=== PATIENT | female | born 1945 | race Caucasian/White ===

== ENCOUNTER → 2016-10-18 | Outpatient (CLI) | payer MEDICARE | END | disposition home or self-care (01) | LOC: WOUND 09:12 | PROVIDERS: ATTEND Podiatrist Foot & Ankle Surgery | DX: E11.621 Type 2 diabetes mellitus with foot ulcer (principal); L97.521 Non-pressure chronic ulcer of other part of left foot limited to breakdown of skin; I10 Essential (primary) hypertension; I48.91 Unspecified atrial fibrillation; I25.10 Atherosclerotic heart disease of native coronary artery without angina pectoris; I25.2 Old myocardial infarction; K21.9 Gastro-esophageal reflux disease without esophagitis; E78.00 Pure hypercholesterolemia, unspecified; E11.40 Type 2 diabetes mellitus with diabetic neuropathy, unspecified; Z89.412 Acquired absence of left great toe; Z90.710 Acquired absence of both cervix and uterus | CPT/HCPCS: 97597; G0463; WOU0463 ==

== ENCOUNTER → 2016-10-25 | Outpatient (CLI) | payer MEDICARE | END | disposition home or self-care (01) | LOC: WOUND 15:51 | PROVIDERS: ATTEND Podiatrist Foot & Ankle Surgery | DX: E11.621 Type 2 diabetes mellitus with foot ulcer (principal); L97.511 Non-pressure chronic ulcer of other part of right foot limited to breakdown of skin; L97.521 Non-pressure chronic ulcer of other part of left foot limited to breakdown of skin; I25.10 Atherosclerotic heart disease of native coronary artery without angina pectoris; K21.9 Gastro-esophageal reflux disease without esophagitis; I10 Essential (primary) hypertension; I25.2 Old myocardial infarction; E11.40 Type 2 diabetes mellitus with diabetic neuropathy, unspecified; I48.91 Unspecified atrial fibrillation; E78.00 Pure hypercholesterolemia, unspecified; Z90.710 Acquired absence of both cervix and uterus; Z89.412 Acquired absence of left great toe | CPT/HCPCS: 97597 ==

== ENCOUNTER → 2016-11-01 | Outpatient (CLI) | payer MEDICARE | END | disposition home or self-care (01) | LOC: WOUND 15:30 | PROVIDERS: ATTEND Podiatrist Foot & Ankle Surgery | DX: E11.621 Type 2 diabetes mellitus with foot ulcer (principal); L97.521 Non-pressure chronic ulcer of other part of left foot limited to breakdown of skin; L97.511 Non-pressure chronic ulcer of other part of right foot limited to breakdown of skin; I25.10 Atherosclerotic heart disease of native coronary artery without angina pectoris; I10 Essential (primary) hypertension; K21.9 Gastro-esophageal reflux disease without esophagitis; I25.2 Old myocardial infarction; E78.00 Pure hypercholesterolemia, unspecified; E11.40 Type 2 diabetes mellitus with diabetic neuropathy, unspecified; I48.91 Unspecified atrial fibrillation; Z90.710 Acquired absence of both cervix and uterus; Z89.412 Acquired absence of left great toe | CPT/HCPCS: 11042 ==

== ENCOUNTER → 2016-11-08 | Outpatient (CLI) | payer MEDICARE | END | disposition home or self-care (01) | LOC: CVU 07:51 | PROVIDERS: ATTEND Physician Assistant | DX: I70.203 Unspecified atherosclerosis of native arteries of extremities, bilateral legs (principal); I87.2 Venous insufficiency (chronic) (peripheral); E11.621 Type 2 diabetes mellitus with foot ulcer; I10 Essential (primary) hypertension; Z89.412 Acquired absence of left great toe; Z95.828 Presence of other vascular implants and grafts; Z85.9 Personal history of malignant neoplasm, unspecified | CPT/HCPCS: 93306; 93880; 93922; 93925; 93970 ==

== ENCOUNTER → 2016-11-08 | Outpatient (CLI) | payer MEDICARE | END | disposition home or self-care (01) | LOC: WOUND 13:30 | PROVIDERS: ATTEND Podiatrist Foot & Ankle Surgery | DX: E11.621 Type 2 diabetes mellitus with foot ulcer (principal); L97.511 Non-pressure chronic ulcer of other part of right foot limited to breakdown of skin; L97.521 Non-pressure chronic ulcer of other part of left foot limited to breakdown of skin; E11.51 Type 2 diabetes mellitus with diabetic peripheral angiopathy without gangrene; I25.10 Atherosclerotic heart disease of native coronary artery without angina pectoris; I10 Essential (primary) hypertension; K21.9 Gastro-esophageal reflux disease without esophagitis; I25.2 Old myocardial infarction; E11.40 Type 2 diabetes mellitus with diabetic neuropathy, unspecified; I48.91 Unspecified atrial fibrillation; E78.00 Pure hypercholesterolemia, unspecified; Z89.412 Acquired absence of left great toe; Z90.710 Acquired absence of both cervix and uterus | CPT/HCPCS: 97597 ==

== ENCOUNTER → 2016-11-15 | Outpatient (CLI) | payer MEDICARE | END | disposition home or self-care (01) | LOC: WOUND 14:05 | PROVIDERS: ATTEND Podiatrist Foot & Ankle Surgery | DX: E11.621 Type 2 diabetes mellitus with foot ulcer (principal); L97.521 Non-pressure chronic ulcer of other part of left foot limited to breakdown of skin; L97.511 Non-pressure chronic ulcer of other part of right foot limited to breakdown of skin; I25.10 Atherosclerotic heart disease of native coronary artery without angina pectoris; I10 Essential (primary) hypertension; K21.9 Gastro-esophageal reflux disease without esophagitis; I25.2 Old myocardial infarction; E11.51 Type 2 diabetes mellitus with diabetic peripheral angiopathy without gangrene; E78.00 Pure hypercholesterolemia, unspecified; E11.40 Type 2 diabetes mellitus with diabetic neuropathy, unspecified; I48.91 Unspecified atrial fibrillation; I87.2 Venous insufficiency (chronic) (peripheral); Z90.710 Acquired absence of both cervix and uterus | CPT/HCPCS: 11042; 97597 ==

== ENCOUNTER → 2016-11-29 | Outpatient (CLI) | payer MEDICAID, MEDICARE | END | disposition home or self-care (01) | LOC: WOUND 15:14 | PROVIDERS: ATTEND Internal Medicine Cardiovascular Disease | DX: E11.621 Type 2 diabetes mellitus with foot ulcer (principal); L97.511 Non-pressure chronic ulcer of other part of right foot limited to breakdown of skin; L97.521 Non-pressure chronic ulcer of other part of left foot limited to breakdown of skin; E11.51 Type 2 diabetes mellitus with diabetic peripheral angiopathy without gangrene; I25.10 Atherosclerotic heart disease of native coronary artery without angina pectoris; I10 Essential (primary) hypertension; K21.9 Gastro-esophageal reflux disease without esophagitis; I25.2 Old myocardial infarction; E78.00 Pure hypercholesterolemia, unspecified; E11.40 Type 2 diabetes mellitus with diabetic neuropathy, unspecified; I48.91 Unspecified atrial fibrillation; Z90.710 Acquired absence of both cervix and uterus | CPT/HCPCS: G0463; WOU0463 ==

== ENCOUNTER → 2016-12-06 | Outpatient (CLI) | payer MEDICARE | END | disposition home or self-care (01) | LOC: WOUND 15:35 | PROVIDERS: ATTEND Podiatrist Foot & Ankle Surgery | DX: E11.621 Type 2 diabetes mellitus with foot ulcer (principal); L97.521 Non-pressure chronic ulcer of other part of left foot limited to breakdown of skin; L97.511 Non-pressure chronic ulcer of other part of right foot limited to breakdown of skin; Z90.710 Acquired absence of both cervix and uterus; I25.10 Atherosclerotic heart disease of native coronary artery without angina pectoris; I10 Essential (primary) hypertension; K21.9 Gastro-esophageal reflux disease without esophagitis; I25.2 Old myocardial infarction; E78.00 Pure hypercholesterolemia, unspecified; E11.40 Type 2 diabetes mellitus with diabetic neuropathy, unspecified; E11.51 Type 2 diabetes mellitus with diabetic peripheral angiopathy without gangrene; I48.91 Unspecified atrial fibrillation | CPT/HCPCS: 11044; 97597 ==

== ENCOUNTER → 2016-12-21 | Outpatient (CLI) | payer MEDICARE | END | disposition home or self-care (01) | LOC: WOUND 14:13 | PROVIDERS: ATTEND Physician Assistant | DX: E11.621 Type 2 diabetes mellitus with foot ulcer (principal); L97.521 Non-pressure chronic ulcer of other part of left foot limited to breakdown of skin; L97.511 Non-pressure chronic ulcer of other part of right foot limited to breakdown of skin; E11.622 Type 2 diabetes mellitus with other skin ulcer; L97.821 Non-pressure chronic ulcer of other part of left lower leg limited to breakdown of skin; I25.10 Atherosclerotic heart disease of native coronary artery without angina pectoris; I10 Essential (primary) hypertension; K21.9 Gastro-esophageal reflux disease without esophagitis; I25.2 Old myocardial infarction; E78.00 Pure hypercholesterolemia, unspecified; E11.51 Type 2 diabetes mellitus with diabetic peripheral angiopathy without gangrene; I48.91 Unspecified atrial fibrillation; Z85.828 Personal history of other malignant neoplasm of skin; Z90.710 Acquired absence of both cervix and uterus | CPT/HCPCS: 11044; G0463; WOU0463 ==

== ENCOUNTER → 2016-12-27 | Outpatient (CLI) | payer MEDICARE | END | disposition home or self-care (01) | LOC: WOUND 15:30 | PROVIDERS: ATTEND Podiatrist Foot & Ankle Surgery | DX: E11.621 Type 2 diabetes mellitus with foot ulcer (principal); L97.524 Non-pressure chronic ulcer of other part of left foot with necrosis of bone; E11.51 Type 2 diabetes mellitus with diabetic peripheral angiopathy without gangrene; I25.10 Atherosclerotic heart disease of native coronary artery without angina pectoris; I10 Essential (primary) hypertension; K21.9 Gastro-esophageal reflux disease without esophagitis; I25.2 Old myocardial infarction; Z85.828 Personal history of other malignant neoplasm of skin; E78.00 Pure hypercholesterolemia, unspecified; I48.91 Unspecified atrial fibrillation; Z89.412 Acquired absence of left great toe; Z90.710 Acquired absence of both cervix and uterus | CPT/HCPCS: 11044 ==

== ENCOUNTER → 2017-01-10 | Outpatient (CLI) | payer MEDICARE | END | disposition home or self-care (01) | LOC: WOUND 15:30 | PROVIDERS: ATTEND Podiatrist Foot & Ankle Surgery | DX: E11.621 Type 2 diabetes mellitus with foot ulcer (principal); L97.524 Non-pressure chronic ulcer of other part of left foot with necrosis of bone; E11.40 Type 2 diabetes mellitus with diabetic neuropathy, unspecified; E11.51 Type 2 diabetes mellitus with diabetic peripheral angiopathy without gangrene; I10 Essential (primary) hypertension; I48.91 Unspecified atrial fibrillation; I25.10 Atherosclerotic heart disease of native coronary artery without angina pectoris; I25.2 Old myocardial infarction; K21.9 Gastro-esophageal reflux disease without esophagitis; E78.00 Pure hypercholesterolemia, unspecified; Z90.710 Acquired absence of both cervix and uterus; Z85.828 Personal history of other malignant neoplasm of skin; Z89.412 Acquired absence of left great toe | CPT/HCPCS: 11044 ==

== ENCOUNTER → 2017-01-17 | Outpatient (CLI) | payer MEDICARE | END | disposition home or self-care (01) | LOC: WOUND 15:11 | PROVIDERS: ATTEND Podiatrist Foot & Ankle Surgery | DX: E11.621 Type 2 diabetes mellitus with foot ulcer (principal); L97.524 Non-pressure chronic ulcer of other part of left foot with necrosis of bone; I87.2 Venous insufficiency (chronic) (peripheral); L97.821 Non-pressure chronic ulcer of other part of left lower leg limited to breakdown of skin; E11.51 Type 2 diabetes mellitus with diabetic peripheral angiopathy without gangrene; I25.10 Atherosclerotic heart disease of native coronary artery without angina pectoris; K21.9 Gastro-esophageal reflux disease without esophagitis; I25.2 Old myocardial infarction; E78.00 Pure hypercholesterolemia, unspecified; E11.40 Type 2 diabetes mellitus with diabetic neuropathy, unspecified; I48.91 Unspecified atrial fibrillation; Z85.828 Personal history of other malignant neoplasm of skin; Z89.412 Acquired absence of left great toe; Z90.710 Acquired absence of both cervix and uterus | CPT/HCPCS: 11044; 97597 ==

== ENCOUNTER → 2017-01-24 | Outpatient (CLI) | payer MEDICARE | END | disposition home or self-care (01) | LOC: WOUND 15:39 | PROVIDERS: ATTEND Podiatrist Foot & Ankle Surgery | DX: E11.621 Type 2 diabetes mellitus with foot ulcer (principal); L97.524 Non-pressure chronic ulcer of other part of left foot with necrosis of bone; E11.622 Type 2 diabetes mellitus with other skin ulcer; I87.2 Venous insufficiency (chronic) (peripheral); L97.821 Non-pressure chronic ulcer of other part of left lower leg limited to breakdown of skin; E11.51 Type 2 diabetes mellitus with diabetic peripheral angiopathy without gangrene | CPT/HCPCS: 11042; 11044 ==

== ENCOUNTER → 2017-02-07 | Outpatient (CLI) | payer MEDICARE | END | disposition home or self-care (01) | LOC: WOUND 15:45 | PROVIDERS: ATTEND Podiatrist Foot & Ankle Surgery | DX: E11.621 Type 2 diabetes mellitus with foot ulcer (principal); L97.524 Non-pressure chronic ulcer of other part of left foot with necrosis of bone; E11.622 Type 2 diabetes mellitus with other skin ulcer; L97.811 Non-pressure chronic ulcer of other part of right lower leg limited to breakdown of skin; E11.51 Type 2 diabetes mellitus with diabetic peripheral angiopathy without gangrene; I25.10 Atherosclerotic heart disease of native coronary artery without angina pectoris; K21.9 Gastro-esophageal reflux disease without esophagitis; I25.2 Old myocardial infarction; E78.00 Pure hypercholesterolemia, unspecified; E11.40 Type 2 diabetes mellitus with diabetic neuropathy, unspecified; I48.91 Unspecified atrial fibrillation; I10 Essential (primary) hypertension; Z85.828 Personal history of other malignant neoplasm of skin; Z90.710 Acquired absence of both cervix and uterus; Z89.412 Acquired absence of left great toe | CPT/HCPCS: 11042; 11044 ==

== ENCOUNTER → 2017-02-14 | Outpatient (CLI) | payer MEDICARE, MEDICAID | END | disposition home or self-care (01) | LOC: WOUND 15:29 | PROVIDERS: ATTEND Podiatrist Foot & Ankle Surgery | DX: E11.621 Type 2 diabetes mellitus with foot ulcer (principal); L97.524 Non-pressure chronic ulcer of other part of left foot with necrosis of bone; I87.2 Venous insufficiency (chronic) (peripheral); E11.622 Type 2 diabetes mellitus with other skin ulcer; L97.821 Non-pressure chronic ulcer of other part of left lower leg limited to breakdown of skin; E11.51 Type 2 diabetes mellitus with diabetic peripheral angiopathy without gangrene; I25.10 Atherosclerotic heart disease of native coronary artery without angina pectoris; I10 Essential (primary) hypertension; K21.9 Gastro-esophageal reflux disease without esophagitis; I25.2 Old myocardial infarction; E78.00 Pure hypercholesterolemia, unspecified; E11.40 Type 2 diabetes mellitus with diabetic neuropathy, unspecified; I48.91 Unspecified atrial fibrillation; Z85.828 Personal history of other malignant neoplasm of skin; Z90.710 Acquired absence of both cervix and uterus; Z89.412 Acquired absence of left great toe | CPT/HCPCS: 11044; 97597 ==

== ENCOUNTER → 2017-02-21 | Outpatient (CLI) | payer MEDICARE, MEDICAID | END | disposition home or self-care (01) | LOC: WOUND 15:30 | PROVIDERS: ATTEND Podiatrist Foot & Ankle Surgery | DX: E11.621 Type 2 diabetes mellitus with foot ulcer (principal); L97.524 Non-pressure chronic ulcer of other part of left foot with necrosis of bone; E11.51 Type 2 diabetes mellitus with diabetic peripheral angiopathy without gangrene; I25.10 Atherosclerotic heart disease of native coronary artery without angina pectoris; I10 Essential (primary) hypertension; K21.9 Gastro-esophageal reflux disease without esophagitis; I25.2 Old myocardial infarction; E78.00 Pure hypercholesterolemia, unspecified; E11.40 Type 2 diabetes mellitus with diabetic neuropathy, unspecified; I48.91 Unspecified atrial fibrillation; Z89.412 Acquired absence of left great toe; Z90.710 Acquired absence of both cervix and uterus; Z85.828 Personal history of other malignant neoplasm of skin | CPT/HCPCS: 11042; 11044 ==

== ENCOUNTER → 2017-02-28 | Outpatient (CLI) | payer MEDICARE, MEDICAID | END | disposition home or self-care (01) | LOC: WOUND 15:35 | PROVIDERS: ATTEND Podiatrist Foot & Ankle Surgery | DX: E11.621 Type 2 diabetes mellitus with foot ulcer (principal); L97.524 Non-pressure chronic ulcer of other part of left foot with necrosis of bone; E11.622 Type 2 diabetes mellitus with other skin ulcer; L97.222 Non-pressure chronic ulcer of left calf with fat layer exposed; E11.51 Type 2 diabetes mellitus with diabetic peripheral angiopathy without gangrene; I25.10 Atherosclerotic heart disease of native coronary artery without angina pectoris; K21.9 Gastro-esophageal reflux disease without esophagitis; I25.2 Old myocardial infarction; E78.00 Pure hypercholesterolemia, unspecified; E11.40 Type 2 diabetes mellitus with diabetic neuropathy, unspecified; I48.91 Unspecified atrial fibrillation; I87.2 Venous insufficiency (chronic) (peripheral); Z85.828 Personal history of other malignant neoplasm of skin; Z90.710 Acquired absence of both cervix and uterus; Z89.412 Acquired absence of left great toe | CPT/HCPCS: 11044; 97597; 97598 ==

== ENCOUNTER → 2017-03-07 | Outpatient (CLI) | payer MEDICARE, MEDICAID | END | disposition home or self-care (01) | LOC: WOUND 15:29 | PROVIDERS: ATTEND Podiatrist Foot & Ankle Surgery | DX: E11.621 Type 2 diabetes mellitus with foot ulcer (principal); L97.524 Non-pressure chronic ulcer of other part of left foot with necrosis of bone; E11.51 Type 2 diabetes mellitus with diabetic peripheral angiopathy without gangrene; E11.622 Type 2 diabetes mellitus with other skin ulcer; L97.222 Non-pressure chronic ulcer of left calf with fat layer exposed; I87.2 Venous insufficiency (chronic) (peripheral); L97.811 Non-pressure chronic ulcer of other part of right lower leg limited to breakdown of skin; I70.238 Atherosclerosis of native arteries of right leg with ulceration of other part of lower leg; I48.91 Unspecified atrial fibrillation; I10 Essential (primary) hypertension; I25.10 Atherosclerotic heart disease of native coronary artery without angina pectoris; I25.2 Old myocardial infarction; K21.9 Gastro-esophageal reflux disease without esophagitis; E78.00 Pure hypercholesterolemia, unspecified; E11.40 Type 2 diabetes mellitus with diabetic neuropathy, unspecified; Z90.710 Acquired absence of both cervix and uterus; Z89.412 Acquired absence of left great toe; Z85.828 Personal history of other malignant neoplasm of skin | CPT/HCPCS: 11042; 11045 ==

== ENCOUNTER → 2017-03-14 | Outpatient (CLI) | payer MEDICARE, MEDICAID | END | disposition home or self-care (01) | LOC: WOUND 14:18 | PROVIDERS: ATTEND Podiatrist Foot & Ankle Surgery | DX: E11.622 Type 2 diabetes mellitus with other skin ulcer (principal); I70.238 Atherosclerosis of native arteries of right leg with ulceration of other part of lower leg; L97.811 Non-pressure chronic ulcer of other part of right lower leg limited to breakdown of skin; E11.621 Type 2 diabetes mellitus with foot ulcer; L97.524 Non-pressure chronic ulcer of other part of left foot with necrosis of bone; L97.222 Non-pressure chronic ulcer of left calf with fat layer exposed; I87.2 Venous insufficiency (chronic) (peripheral); E11.51 Type 2 diabetes mellitus with diabetic peripheral angiopathy without gangrene; I48.91 Unspecified atrial fibrillation; I25.10 Atherosclerotic heart disease of native coronary artery without angina pectoris; E78.00 Pure hypercholesterolemia, unspecified; E11.40 Type 2 diabetes mellitus with diabetic neuropathy, unspecified; I25.2 Old myocardial infarction; I10 Essential (primary) hypertension; K21.9 Gastro-esophageal reflux disease without esophagitis; Z85.828 Personal history of other malignant neoplasm of skin; Z89.412 Acquired absence of left great toe; Z90.710 Acquired absence of both cervix and uterus; Z79.01 Long term (current) use of anticoagulants | CPT/HCPCS: 11042; 11044; 11045; 97597 ==

== ENCOUNTER → 2017-03-21 | Outpatient (CLI) | payer MEDICARE, MEDICAID ==
[~2017-03-21] MED LIST: APIX5TAB PO; FURO-92 PO; INSU100V8 SQ; ISOS30TA8 PO; LISI-167 PO; METF-688 PO; METO50TA82 PO; MULT-717 PO; POTA20PA25 PO
== END | disposition home or self-care (01) ==
LOC: WOUND 15:35
PROVIDERS: ATTEND Podiatrist Foot & Ankle Surgery
DX: E11.621 Type 2 diabetes mellitus with foot ulcer (principal); L97.524 Non-pressure chronic ulcer of other part of left foot with necrosis of bone; I87.2 Venous insufficiency (chronic) (peripheral); L97.222 Non-pressure chronic ulcer of left calf with fat layer exposed; I70.238 Atherosclerosis of native arteries of right leg with ulceration of other part of lower leg; L97.811 Non-pressure chronic ulcer of other part of right lower leg limited to breakdown of skin; E11.51 Type 2 diabetes mellitus with diabetic peripheral angiopathy without gangrene; E11.69 Type 2 diabetes mellitus with other specified complication; M86.172 Other acute osteomyelitis, left ankle and foot; G82.20 Paraplegia, unspecified; I25.10 Atherosclerotic heart disease of native coronary artery without angina pectoris; I10 Essential (primary) hypertension; K21.9 Gastro-esophageal reflux disease without esophagitis; I25.2 Old myocardial infarction; E78.00 Pure hypercholesterolemia, unspecified; E11.40 Type 2 diabetes mellitus with diabetic neuropathy, unspecified; I48.91 Unspecified atrial fibrillation; Z85.828 Personal history of other malignant neoplasm of skin; Z89.412 Acquired absence of left great toe; Z90.710 Acquired absence of both cervix and uterus; Z79.01 Long term (current) use of anticoagulants
CPT/HCPCS: 11042; 11044

== ENCOUNTER 2017-06-12 12:34 | Inpatient (IN) | payer MEDICARE, MEDICAID ==
[~2017-06-12] VITALS: Ht 157.5 cm; Wt 102.8 kg
[2017-06-12] MEDS ORDERED: LACTATED RINGERS 1,000 ML IV SCH (12:58)
[2017-06-12] MEDS ORDERED: FENTANYL PF 250 MCG/5ML ONE (13:45)
[2017-06-12] MEDS ORDERED: MIDAZOLAM 1 MG/ML, 2ML ONE (13:45)
[2017-06-12] MEDS ORDERED: PROPOFOL 10 MG/ML, 20ML ONE (13:47)
[2017-06-12] MEDS ORDERED: DEXAMETHASONE 4 MG/ML, 1ML ONE ×2 (13:47)
[2017-06-12] MEDS ORDERED: WATER-INJECTION,STERILE 10 ML IV ONE ×2 (13:48→15:28)
[2017-06-12] MEDS ORDERED: CEFAZOLIN 1,000 MG ONE ×2 (13:48)
[2017-06-12] MEDS ORDERED: ACETAMINOPHEN 500 MG TABLET PO ONE (14:00)
[2017-06-12] MEDS: OxyconTIN ER 10 MG TAB.ER PO ONE ×2 (14:04→14:11)
[2017-06-12] MEDS: ONDANSETRON ODT 8 MG PO ONE ×2 (14:05→14:12)
[2017-06-12] MEDS: GABAPENTIN 300 MG CAPSULE PO ONE ×2 (14:05→14:11)
[2017-06-12] MEDS ORDERED: hydrALAzine 20 MG/ML, 1ML IV PRN (15:00)
[2017-06-12] MEDS ORDERED: FENTANYL PF 100 MCG/2ML IV PRN (15:00)
[2017-06-12] MEDS ORDERED: PROMETHAZINE 25 MG/ML, 1ML IV PRN (15:00)
[2017-06-12] MEDS ORDERED: LABETALOL 5MG/ML, 20ML IV PRN (15:00)
[2017-06-12] MEDS ORDERED: PROMETHAZINE 12.5 MG SUPP PR PRN (15:00)
[2017-06-12] MEDS ORDERED: MEPERIDINE/PF 25MG/0.5ML IVPush PRN (15:00)
[2017-06-12] MEDS ORDERED: HYDROmorphone 1 MG/ML, 1ML IV PRN (15:00)
[2017-06-12] MEDS ORDERED: morphine SULFATE 10 MG/ML, 1ML IV PRN (15:00)
[2017-06-12] MEDS ORDERED: OXYcodone 5 MG/5 ML ORAL.SOL UDC PO PRN (15:00)
[2017-06-12] MEDS ORDERED: METOCLOPRAMIDE 5 MG/ML, 2ML IV PRN (15:00)
[2017-06-12] MEDS ORDERED: ONDANSETRON 2MG/ML, 2ML IVPush PRN (15:00)
[2017-06-12] MEDS ORDERED: EPHEDRINE 50 MG/ML, 1ML ONE (15:28)
[2017-06-12] MEDS ORDERED: CEFAZOLIN PMX 2GM/50ML 50 ML IVPB SCH (17:00)
[2017-06-12 19:12] VITALS: BP 127/66
[2017-06-12] MEDS ORDERED: FUROSEMIDE 40 MG TABLET PO SCH (21:00)
[2017-06-12 22:28] VITALS: BP 103/62
[2017-06-12] MEDS: ISOSORBIDE MONONITRATE ER 30 MG TABLET PO SCH (22:30)
[2017-06-12] MEDS: metFORMIN XR 500 MG TAB.ER.24H PO SCH (22:30)
[2017-06-12] MEDS: APIXABAN 5 MG TABLET PO SCH (22:30)
[2017-06-12] MEDS: METOPROLOL TARTRATE 50 MG TABLET PO SCH (22:30)
[2017-06-12 23:45] VITALS: BP 112/73
[2017-06-12] MEDS: LACTATED RINGERS 1,000 ML IV SCH (23:48)
[2017-06-12] MEDS: INSULIN GLARGINE 100 UNITS/ML, PEN SQ-INSULIN SCH ×2 (23:50→23:55)
[2017-06-12] MEDS: INSULIN REGULAR 100 UNITS/ML, 3ML VIAL SQ-INSULIN SCH (23:51)
[2017-06-13] MEDS: CEFAZOLIN PMX 2GM/50ML 50 ML IVPB SCH ×3 (01:33→17:46)
[2017-06-13 03:09] VITALS: BP 124/45
[2017-06-13 05:37] LABS: BASOPHILS # (AUTO) 0.01 x10^3/uL (0-0.1); BASOPHILS % (AUTO) 0 % (0-1); EOSINOPHILS # (AUTO) 0.15 x10^3/uL (0-0.4); EOSINOPHILS % (AUTO) 2 % (1-7); LYMPHOCYTES # (AUTO) 1.05 x10^3/uL (1-3.4); LYMPHOCYTES % (AUTO) 16 % (22-44); MD NO; MEAN CORPUSCULAR HEMOGLOBIN 25.4 pg (27.0-34.8); MEAN CORPUSCULAR HGB CONC 31.6 g/dL (32.4-35.8); MEAN CORPUSCULAR VOLUME 80.4 fL (80-100); MONOCYTES # (AUTO) 0.71 x10^3/uL (0.2-0.8); MONOCYTES % (AUTO) 11 % (2-9); NEUTROPHILS # (AUTO) 4.67 x10^3/uL (1.8-6.8); NEUTROPHILS % (AUTO) 71 % (42-75); PLATELET COUNT 314 x10^3/uL (130-400); RED BLOOD COUNT 3.67 x10^6/uL (3.82-5.3); RED CELL DISTRIBUTION WIDTH 16.9 % (9.6-15.2)
[2017-06-13 05:48] LABS: ALBUMIN 2.7 g/dL (3.4-5.0); ANION GAP 11 mmol/L (5-15); CALCIUM 8.4 mg/dL (8.5-10.1); CHLORIDE 105 mmol/L (98-107); CREATININE 0.93 mg/dL (0.55-1.02)
[2017-06-13] MEDS: LACTATED RINGERS 1,000 ML IV SCH ×2 (07:00→16:29)
[2017-06-13] MEDS: INSULIN REGULAR 100 UNITS/ML, 3ML VIAL SQ-INSULIN SCH ×4 (07:00→20:18)
[2017-06-13] MEDS: MULTIVITAMIN 1 TABLET PO SCH (08:59)
[2017-06-13] MEDS: metFORMIN XR 500 MG TAB.ER.24H PO SCH ×2 (08:59→20:19)
[2017-06-13] MEDS: POTASSIUM CHLORIDE 20 MEQ PACKET PO SCH (08:59)
[2017-06-13 09:00] VITALS: BP 163/81
[2017-06-13] MEDS ORDERED: CEFTRIAXONE 2 GM in SODIUM CHLORIDE 0.9% 50 ML IV SCH (09:00)
[2017-06-13] MEDS: APIXABAN 5 MG TABLET PO SCH ×2 (09:00→20:19)
[2017-06-13] MEDS: CIPROFLOXACIN 250 MG TABLET PO SCH ×2 (09:00→20:19)
[2017-06-13] MEDS: ISOSORBIDE MONONITRATE ER 30 MG TABLET PO SCH ×2 (09:01→20:20)
[2017-06-13] MEDS: LISINOPRIL 10 MG TABLET PO SCH (09:02)
[2017-06-13] MEDS: FUROSEMIDE 40 MG TABLET PO SCH ×2 (09:02→20:21)
[2017-06-13] MEDS: METOPROLOL TARTRATE 50 MG TABLET PO SCH ×2 (09:02→20:20)
[2017-06-13] MEDS ORDERED: HYDROcodone/APAP 5/325 TABLET PO PRN (09:30)
[2017-06-13] MEDS ORDERED: CIPROFLOXACIN 500 MG TABLET ONE ×2 (10:06→20:07)
[2017-06-13] MEDS: SIMETHICONE 125 MG CHEW TAB PO PRN ×2 (10:09→17:46)
[2017-06-13 14:54] VITALS: BP 92/54
[2017-06-13 18:29] VITALS: BP 110/44
[2017-06-13 20:02] VITALS: BP 124/66
[2017-06-13] MEDS: INSULIN GLARGINE 100 UNITS/ML, PEN SQ-INSULIN SCH (22:57)
[2017-06-14] MEDS: CEFAZOLIN PMX 2GM/50ML 50 ML IVPB SCH ×2 (00:40→09:27)
[2017-06-14] MEDS: LACTATED RINGERS 1,000 ML IV SCH ×3 (00:40→16:40)
[2017-06-14 01:19] VITALS: BP 74/45
[2017-06-14 01:44] VITALS: BP 87/48
[2017-06-14 04:20] VITALS: BP 102/66
[2017-06-14 05:24] LABS: MEAN CORPUSCULAR HEMOGLOBIN 26.5 pg (27.0-34.8); MEAN CORPUSCULAR HGB CONC 33.3 g/dL (32.4-35.8); MEAN CORPUSCULAR VOLUME 79.7 fL (80-100); MEAN PLATELET VOLUME 7.1 fL (7.4-10.4); PLATELET COUNT 292 x10^3/uL (130-400); RED BLOOD COUNT 3.44 x10^6/uL (3.82-5.3); RED CELL DISTRIBUTION WIDTH 16.7 % (9.6-15.2)
[2017-06-14 06:12] LABS: BASOPHILS # (AUTO) 0.04 x10^3/uL (0-0.1); BASOPHILS % (AUTO) 0 % (0-1); EOSINOPHILS # (AUTO) 0.06 x10^3/uL (0-0.4); EOSINOPHILS % (AUTO) 1 % (1-7); LYMPHOCYTES % (AUTO) 14 % (22-44); MD SCAN; MONOCYTES # (AUTO) 1.89 x10^3/uL (0.2-0.8); MONOCYTES % (AUTO) 15 % (2-9); NEUTROPHILS % (AUTO) 71 % (42-75)
[2017-06-14] MEDS: INSULIN REGULAR 100 UNITS/ML, 3ML VIAL SQ-INSULIN SCH ×4 (06:39→21:00)
[2017-06-14] MEDS ORDERED: CIPROFLOXACIN 500 MG TABLET ONE ×2 (08:39→21:25)
[2017-06-14 08:56] VITALS: BP 95/58
[2017-06-14] MEDS: METOPROLOL TARTRATE 50 MG TABLET PO SCH ×2 (09:00→21:00)
[2017-06-14] MEDS: CIPROFLOXACIN 250 MG TABLET PO SCH ×2 (09:00→21:00)
[2017-06-14] MEDS: ISOSORBIDE MONONITRATE ER 30 MG TABLET PO SCH ×2 (09:00→21:00)
[2017-06-14] MEDS: FUROSEMIDE 40 MG TABLET PO SCH ×2 (09:00→21:00)
[2017-06-14] MEDS: LISINOPRIL 10 MG TABLET PO SCH (09:00)
[2017-06-14] MEDS: POTASSIUM CHLORIDE 20 MEQ PACKET PO SCH (09:01)
[2017-06-14] MEDS: MULTIVITAMIN 1 TABLET PO SCH (09:01)
[2017-06-14] MEDS: APIXABAN 5 MG TABLET PO SCH ×2 (09:02→21:38)
[2017-06-14] MEDS: metFORMIN XR 500 MG TAB.ER.24H PO SCH ×2 (09:02→21:39)
[2017-06-14] MEDS: ACETAMINOPHEN 325 MG TABLET PO PRN ×2 (10:34→19:39)
[2017-06-14] MEDS: DOCUSATE 100 MG CAPSULE PO SCH ×2 (10:34→21:00)
[2017-06-14 14:12] VITALS: BP 99/64
[2017-06-14] MEDS: CEFTAROLINE 600 MG in SODIUM CHLORIDE 0.9% 100 ML IV SCH (17:01)
[2017-06-14 18:39] VITALS: BP 108/62
[2017-06-14] MEDS: INSULIN GLARGINE 100 UNITS/ML, PEN SQ-INSULIN SCH (21:40)
[2017-06-15 00:17] VITALS: BP 117/68
[2017-06-15] MEDS: LACTATED RINGERS 1,000 ML IV SCH ×4 (01:45→21:43)
[2017-06-15] MEDS: ACETAMINOPHEN 325 MG TABLET PO PRN ×3 (01:45→18:09)
[2017-06-15] MEDS: CEFTAROLINE 600 MG in SODIUM CHLORIDE 0.9% 100 ML IV SCH ×2 (04:58→16:19)
[2017-06-15] MEDS: INSULIN REGULAR 100 UNITS/ML, 3ML VIAL SQ-INSULIN SCH ×4 (07:00→21:00)
[2017-06-15 08:18] LABS: BASOPHILS # (AUTO) 0.11 x10^3/uL (0-0.1); BASOPHILS % (AUTO) 1 % (0-1); EOSINOPHILS % (AUTO) 3 % (1-7); LYMPHOCYTES # (AUTO) 0.88 x10^3/uL (1-3.4); LYMPHOCYTES % (AUTO) 9 % (22-44); MD NO; MEAN CORPUSCULAR HEMOGLOBIN 25.4 pg (27.0-34.8); MEAN CORPUSCULAR HGB CONC 31.8 g/dL (32.4-35.8); MEAN PLATELET VOLUME 6.4 fL (7.4-10.4); MONOCYTES # (AUTO) 1.13 x10^3/uL (0.2-0.8); MONOCYTES % (AUTO) 11 % (2-9); NEUTROPHILS # (AUTO) 7.77 x10^3/uL (1.8-6.8); NEUTROPHILS % (AUTO) 76 % (42-75); PLATELET COUNT 324 x10^3/uL (130-400); RED BLOOD COUNT 3.58 x10^6/uL (3.82-5.3); RED CELL DISTRIBUTION WIDTH 17.2 % (9.6-15.2)
[2017-06-15 08:25] VITALS: BP 104/66
[2017-06-15 08:26] LABS: ANION GAP 11 mmol/L (5-15); CALCIUM 8.1 mg/dL (8.5-10.1); CHLORIDE 106 mmol/L (98-107); CREATININE 0.83 mg/dL (0.55-1.02)
[2017-06-15] MEDS: LISINOPRIL 10 MG TABLET PO SCH (08:33)
[2017-06-15] MEDS: CIPROFLOXACIN 250 MG TABLET PO SCH ×2 (08:33→21:37)
[2017-06-15] MEDS: metFORMIN XR 500 MG TAB.ER.24H PO SCH ×2 (08:33→21:37)
[2017-06-15] MEDS: METOPROLOL TARTRATE 50 MG TABLET PO SCH ×2 (08:33→21:00)
[2017-06-15] MEDS: APIXABAN 5 MG TABLET PO SCH ×2 (08:34→21:38)
[2017-06-15] MEDS: ISOSORBIDE MONONITRATE ER 30 MG TABLET PO SCH ×2 (08:35→21:00)
[2017-06-15] MEDS: MULTIVITAMIN 1 TABLET PO SCH (08:35)
[2017-06-15] MEDS: FUROSEMIDE 40 MG TABLET PO SCH ×2 (08:35→21:00)
[2017-06-15] MEDS: POTASSIUM CHLORIDE 20 MEQ PACKET PO SCH (08:35)
[2017-06-15] MEDS: DOCUSATE 100 MG CAPSULE PO SCH ×2 (08:35→21:38)
[2017-06-15 12:08] VITALS: BP 90/57
[2017-06-15] MEDS ORDERED: HYDROcodone/APAP 5/325 TABLET PO PRN (13:30)
[2017-06-15 14:45] VITALS: BP 124/76
[2017-06-15 19:13] VITALS: BP 102/63
[2017-06-15] MEDS: INSULIN GLARGINE 100 UNITS/ML, PEN SQ-INSULIN SCH (21:49)
[2017-06-15] MEDS: SIMETHICONE 125 MG CHEW TAB PO PRN (22:09)
[2017-06-15] MEDS ORDERED: ONDANSETRON 4 MG TABLET ONE (23:26)
[2017-06-15] MEDS: ONDANSETRON ODT 4 MG PO PRN (23:35)
[2017-06-16 01:13] VITALS: BP 136/60
[2017-06-16] MEDS: METOPROLOL TARTRATE 50 MG TABLET PO SCH ×3 (01:24→21:00)
[2017-06-16] MEDS: ISOSORBIDE MONONITRATE ER 30 MG TABLET PO SCH ×3 (01:24→21:24)
[2017-06-16] MEDS: ACETAMINOPHEN 325 MG TABLET PO PRN ×2 (04:54→20:20)
[2017-06-16] MEDS: CEFTAROLINE 600 MG in SODIUM CHLORIDE 0.9% 100 ML IV SCH ×2 (04:54→17:49)
[2017-06-16] MEDS: LACTATED RINGERS 1,000 ML IV SCH (04:54)
[2017-06-16 05:27] LABS: BASOPHILS # (AUTO) 0.03 x10^3/uL (0-0.1); BASOPHILS % (AUTO) 0 % (0-1); EOSINOPHILS # (AUTO) 0.49 x10^3/uL (0-0.4); EOSINOPHILS % (AUTO) 7 % (1-7); LYMPHOCYTES % (AUTO) 16 % (22-44); MD NO; MEAN CORPUSCULAR HEMOGLOBIN 25.9 pg (27.0-34.8); MEAN CORPUSCULAR HGB CONC 31.9 g/dL (32.4-35.8); MEAN CORPUSCULAR VOLUME 81.4 fL (80-100); MEAN PLATELET VOLUME 7.2 fL (7.4-10.4); MONOCYTES # (AUTO) 1.02 x10^3/uL (0.2-0.8); MONOCYTES % (AUTO) 14 % (2-9); NEUTROPHILS # (AUTO) 4.62 x10^3/uL (1.8-6.8); NEUTROPHILS % (AUTO) 63 % (42-75); PLATELET COUNT 299 x10^3/uL (130-400); RED BLOOD COUNT 3.12 x10^6/uL (3.82-5.3); RED CELL DISTRIBUTION WIDTH 17.1 % (9.6-15.2)
[2017-06-16 05:36] LABS: ANION GAP 8 mmol/L (5-15); CALCIUM 8.4 mg/dL (8.5-10.1); CHLORIDE 108 mmol/L (98-107)
[2017-06-16 05:38] LABS: CREATININE 0.95 mg/dL (0.55-1.02)
[2017-06-16 07:56] VITALS: BP 102/46
[2017-06-16] MEDS: INSULIN REGULAR 100 UNITS/ML, 3ML VIAL SQ-INSULIN SCH ×4 (08:38→20:20)
[2017-06-16] MEDS: FUROSEMIDE 40 MG TABLET PO SCH ×2 (09:52→21:00)
[2017-06-16] MEDS: LISINOPRIL 10 MG TABLET PO SCH (09:53)
[2017-06-16] MEDS ORDERED: POTASSIUM CHLORIDE 20 MEQ TAB.ER.PRT ONE (09:58)
[2017-06-16] MEDS: metFORMIN XR 500 MG TAB.ER.24H PO SCH ×2 (10:11→21:26)
[2017-06-16] MEDS: MULTIVITAMIN 1 TABLET PO SCH (10:11)
[2017-06-16] MEDS: DOCUSATE 100 MG CAPSULE PO SCH ×2 (10:11→21:23)
[2017-06-16] MEDS: POTASSIUM CHLORIDE 20 MEQ PACKET PO SCH (10:12)
[2017-06-16] MEDS: APIXABAN 5 MG TABLET PO SCH ×2 (10:14→21:23)
[2017-06-16 13:45] VITALS: BP 97/41
[2017-06-16 19:37] VITALS: BP 97/46
[2017-06-16] MEDS: INSULIN GLARGINE 100 UNITS/ML, PEN SQ-INSULIN SCH (21:27)
[2017-06-17 03:37] VITALS: BP 93/46
[2017-06-17] MEDS: CEFTAROLINE 600 MG in SODIUM CHLORIDE 0.9% 100 ML IV SCH ×2 (05:46→16:23)
[2017-06-17] MEDS: ACETAMINOPHEN 325 MG TABLET PO PRN ×2 (06:32→22:21)
[2017-06-17] MEDS: INSULIN REGULAR 100 UNITS/ML, 3ML VIAL SQ-INSULIN SCH ×4 (07:28→22:22)
[2017-06-17 07:35] VITALS: BP 108/48
[2017-06-17] MEDS: LISINOPRIL 10 MG TABLET PO SCH (09:29)
[2017-06-17] MEDS: metFORMIN XR 500 MG TAB.ER.24H PO SCH ×2 (09:44→22:21)
[2017-06-17] MEDS: APIXABAN 5 MG TABLET PO SCH ×2 (09:45→22:22)
[2017-06-17] MEDS: FUROSEMIDE 40 MG TABLET PO SCH ×2 (09:45→22:22)
[2017-06-17] MEDS: ISOSORBIDE MONONITRATE ER 30 MG TABLET PO SCH ×2 (09:45→22:21)
[2017-06-17] MEDS: METOPROLOL TARTRATE 50 MG TABLET PO SCH ×2 (09:45→22:21)
[2017-06-17] MEDS: POTASSIUM CHLORIDE 20 MEQ PACKET PO SCH (09:46)
[2017-06-17] MEDS: DOCUSATE 100 MG CAPSULE PO SCH ×2 (10:46→21:00)
[2017-06-17] MEDS: MULTIVITAMIN 1 TABLET PO SCH (11:31)
[2017-06-17] MEDS: SIMETHICONE 125 MG CHEW TAB PO PRN (11:31)
[2017-06-17 12:20] VITALS: BP 149/78
[2017-06-17 14:00] VITALS: BP 109/45
[2017-06-17 14:55] LABS: CLOSTRIDIUM DIFFICILE ANTIGEN NEGATIVE; CLOSTRIDIUM DIFFICILE TOXIN NEGATIVE (Negative)
[2017-06-17] MEDS ORDERED: LOPERAMIDE 2 MG CAPSULE ONE (16:17)
[2017-06-17] MEDS: LOPERAMIDE 2 MG CAPSULE PO PRN ×2 (16:23→20:51)
[2017-06-17 19:20] VITALS: BP 119/52
[2017-06-17] MEDS: INSULIN GLARGINE 100 UNITS/ML, PEN SQ-INSULIN SCH (23:14)
[2017-06-18] MEDS: LOPERAMIDE 2 MG CAPSULE PO PRN ×5 (01:54→20:44)
[2017-06-18 02:30] VITALS: BP 118/53
[2017-06-18] MEDS: CEFTAROLINE 600 MG in SODIUM CHLORIDE 0.9% 100 ML IV SCH ×2 (05:14→16:53)
[2017-06-18] MEDS: ACETAMINOPHEN 325 MG TABLET PO PRN (06:48)
[2017-06-18 07:20] VITALS: BP 106/49
[2017-06-18] MEDS: INSULIN REGULAR 100 UNITS/ML, 3ML VIAL SQ-INSULIN SCH ×4 (07:43→21:00)
[2017-06-18] MEDS: DOCUSATE 100 MG CAPSULE PO SCH ×2 (07:44→21:00)
[2017-06-18] MEDS: LISINOPRIL 10 MG TABLET PO SCH (07:55)
[2017-06-18] MEDS: metFORMIN XR 500 MG TAB.ER.24H PO SCH ×2 (07:55→20:43)
[2017-06-18] MEDS: ISOSORBIDE MONONITRATE ER 30 MG TABLET PO SCH ×2 (07:56→23:08)
[2017-06-18] MEDS: APIXABAN 5 MG TABLET PO SCH ×2 (07:56→20:44)
[2017-06-18] MEDS: POTASSIUM CHLORIDE 20 MEQ PACKET PO SCH (07:56)
[2017-06-18] MEDS: FUROSEMIDE 40 MG TABLET PO SCH ×2 (07:56→20:40)
[2017-06-18] MEDS: MULTIVITAMIN 1 TABLET PO SCH (07:56)
[2017-06-18] MEDS: METOPROLOL TARTRATE 50 MG TABLET PO SCH ×2 (07:56→21:00)
[2017-06-18 15:21] VITALS: BP 115/46
[2017-06-18 19:50] VITALS: BP 117/51
[2017-06-18 20:57] VITALS: BP 115/69
[2017-06-18] MEDS: INSULIN GLARGINE 100 UNITS/ML, PEN SQ-INSULIN SCH (21:00)
[2017-06-18] MEDS ORDERED: DIPHENOXYLATE/ATROPINE ORAL SOL PO PRN (22:00)
[2017-06-19 00:42] VITALS: BP 109/66
[2017-06-19 06:07] LABS: BASOPHILS # (AUTO) 0.01 x10^3/uL (0-0.1); BASOPHILS % (AUTO) 0 % (0-1); EOSINOPHILS # (AUTO) 0.48 x10^3/uL (0-0.4); EOSINOPHILS % (AUTO) 6 % (1-7); LYMPHOCYTES # (AUTO) 1.24 x10^3/uL (1-3.4); LYMPHOCYTES % (AUTO) 17 % (22-44); MD NO; MEAN CORPUSCULAR HEMOGLOBIN 25.7 pg (27.0-34.8); MEAN CORPUSCULAR HGB CONC 32.3 g/dL (32.4-35.8); MEAN CORPUSCULAR VOLUME 79.4 fL (80-100); MEAN PLATELET VOLUME 6.6 fL (7.4-10.4); MONOCYTES # (AUTO) 0.88 x10^3/uL (0.2-0.8); MONOCYTES % (AUTO) 12 % (2-9); NEUTROPHILS # (AUTO) 4.91 x10^3/uL (1.8-6.8); NEUTROPHILS % (AUTO) 65 % (42-75); PLATELET COUNT 435 x10^3/uL (130-400); RED BLOOD COUNT 3.28 x10^6/uL (3.82-5.3)
[2017-06-19 06:18] LABS: CHLORIDE 107 mmol/L (98-107)
[2017-06-19 06:26] LABS: ALANINE AMINOTRANSFERASE 43 U/L (12-78); ALBUMIN 2.1 g/dL (3.4-5.0); ALKALINE PHOSPHATASE 120 U/L (45-117); ANION GAP 10 mmol/L (5-15); BILIRUBIN,TOTAL 0.4 mg/dL (0.2-1.0); CALCIUM 8.2 mg/dL (8.5-10.1); CREATININE 0.84 mg/dL (0.55-1.02); TOTAL PROTEIN 6.3 g/dL (6.4-8.2)
[2017-06-19] MEDS: INSULIN REGULAR 100 UNITS/ML, 3ML VIAL SQ-INSULIN SCH ×4 (07:32→21:00)
[2017-06-19 08:07] VITALS: BP 117/64
[2017-06-19] MEDS: MULTIVITAMIN 1 TABLET PO SCH (08:16)
[2017-06-19] MEDS: ISOSORBIDE MONONITRATE ER 30 MG TABLET PO SCH ×2 (08:16→21:24)
[2017-06-19] MEDS: METOPROLOL TARTRATE 50 MG TABLET PO SCH ×2 (08:16→21:23)
[2017-06-19] MEDS: APIXABAN 5 MG TABLET PO SCH ×2 (08:16→21:24)
[2017-06-19] MEDS: POTASSIUM CHLORIDE 20 MEQ PACKET PO SCH (08:17)
[2017-06-19] MEDS: LISINOPRIL 10 MG TABLET PO SCH (08:17)
[2017-06-19] MEDS: FUROSEMIDE 40 MG TABLET PO SCH ×2 (08:17→21:00)
[2017-06-19] MEDS: DOCUSATE 100 MG CAPSULE PO SCH ×2 (08:17→21:23)
[2017-06-19 11:15] LABS: CHLORIDE 108 mmol/L (98-107)
[2017-06-19 11:16] LABS: ALBUMIN 2.3 g/dL (3.4-5.0); ANION GAP 7 mmol/L (5-15); CALCIUM 7.9 mg/dL (8.5-10.1); CREATININE 0.94 mg/dL (0.55-1.02)
[2017-06-19] MEDS: CEFTAROLINE 400 MG in SODIUM CHLORIDE 0.9% 100 ML IV SCH ×2 (11:48→23:50)
[2017-06-19] MEDS: LACTOBACILLUS 1GM/ PACKET PO SCH ×3 (11:48→21:23)
[2017-06-19 14:07] VITALS: BP 115/65
[2017-06-19 19:36] VITALS: BP 113/69
[2017-06-20 00:46] VITALS: BP 103/68
[2017-06-20] MEDS: INSULIN REGULAR 100 UNITS/ML, 3ML VIAL SQ-INSULIN SCH ×4 (07:23→22:41)
[2017-06-20 08:15] VITALS: BP 112/55
[2017-06-20] MEDS: POTASSIUM CHLORIDE 20 MEQ PACKET PO SCH (08:18)
[2017-06-20] MEDS: APIXABAN 5 MG TABLET PO SCH ×2 (08:18→22:12)
[2017-06-20] MEDS: MULTIVITAMIN 1 TABLET PO SCH (08:18)
[2017-06-20] MEDS: LISINOPRIL 10 MG TABLET PO SCH (08:18)
[2017-06-20] MEDS: ISOSORBIDE MONONITRATE ER 30 MG TABLET PO SCH ×2 (08:18→22:13)
[2017-06-20] MEDS: LACTOBACILLUS 1GM/ PACKET PO SCH ×4 (08:18→22:14)
[2017-06-20] MEDS: DOCUSATE 100 MG CAPSULE PO SCH ×2 (08:18→22:12)
[2017-06-20] MEDS: FUROSEMIDE 40 MG TABLET PO SCH ×2 (08:19→21:00)
[2017-06-20] MEDS: METOPROLOL TARTRATE 50 MG TABLET PO SCH ×2 (08:19→22:12)
[2017-06-20] MEDS: CEFTAROLINE 400 MG in SODIUM CHLORIDE 0.9% 100 ML IV SCH (11:26)
[2017-06-20 13:58] VITALS: BP 106/46
[2017-06-20] MEDS ORDERED: PIPERACILLIN/TAZO/PMX 4.5GM 100 ML IV SCH (16:30)
[2017-06-20] MEDS: PIPERACILLIN/TAZO/PMX 4.5GM 100 ML IV SCH (17:18)
[2017-06-20 18:48] VITALS: BP 123/43
[2017-06-21 00:20] VITALS: BP 128/55
[2017-06-21] MEDS: PIPERACILLIN/TAZO/PMX 4.5GM 100 ML IV SCH ×2 (00:56→09:56)
[2017-06-21] MEDS: ACETAMINOPHEN 325 MG TABLET PO PRN ×2 (04:11→21:04)
[2017-06-21] MEDS: LACTOBACILLUS 1GM/ PACKET PO SCH ×4 (06:47→21:03)
[2017-06-21 07:07] VITALS: BP 115/53
[2017-06-21] MEDS: INSULIN REGULAR 100 UNITS/ML, 3ML VIAL SQ-INSULIN SCH ×4 (07:30→21:04)
[2017-06-21] MEDS: MULTIVITAMIN 1 TABLET PO SCH (09:52)
[2017-06-21] MEDS: METOPROLOL TARTRATE 50 MG TABLET PO SCH ×2 (09:52→21:03)
[2017-06-21] MEDS: LISINOPRIL 10 MG TABLET PO SCH (09:52)
[2017-06-21] MEDS: APIXABAN 5 MG TABLET PO SCH ×2 (09:53→21:03)
[2017-06-21] MEDS: ISOSORBIDE MONONITRATE ER 30 MG TABLET PO SCH ×2 (09:53→21:03)
[2017-06-21] MEDS: POTASSIUM CHLORIDE 20 MEQ PACKET PO SCH (09:53)
[2017-06-21] MEDS: DOCUSATE 100 MG CAPSULE PO SCH ×2 (09:55→21:04)
[2017-06-21] MEDS: FUROSEMIDE 40 MG TABLET PO SCH (09:55)
[2017-06-21] MEDS: FUROSEMIDE 20 MG TABLET PO SCH (11:55)
[2017-06-21 12:47] VITALS: BP 123/48
[2017-06-21] MEDS: ERTAPENEM 1 GM in SODIUM CHLORIDE 0.9% 50 ML IV SCH (13:08)
[2017-06-21 19:34] VITALS: BP 143/59
[2017-06-22 00:45] VITALS: BP 137/50
[2017-06-22] MEDS: LACTOBACILLUS 1GM/ PACKET PO SCH ×4 (05:51→22:24)
[2017-06-22] MEDS: FUROSEMIDE 20 MG TABLET PO SCH ×2 (05:51→12:06)
[2017-06-22 06:32] VITALS: BP 148/69
[2017-06-22] MEDS: INSULIN REGULAR 100 UNITS/ML, 3ML VIAL SQ-INSULIN SCH ×4 (07:00→21:00)
[2017-06-22] MEDS: MULTIVITAMIN 1 TABLET PO SCH (10:30)
[2017-06-22] MEDS: LISINOPRIL 10 MG TABLET PO SCH (10:36)
[2017-06-22] MEDS: POTASSIUM CHLORIDE 20 MEQ PACKET PO SCH (10:36)
[2017-06-22] MEDS: ISOSORBIDE MONONITRATE ER 30 MG TABLET PO SCH ×2 (10:36→22:24)
[2017-06-22] MEDS: METOPROLOL TARTRATE 50 MG TABLET PO SCH ×2 (10:37→22:23)
[2017-06-22] MEDS: DOCUSATE 100 MG CAPSULE PO SCH ×2 (10:37→22:23)
[2017-06-22] MEDS: APIXABAN 5 MG TABLET PO SCH ×2 (10:37→22:22)
[2017-06-22] MEDS: ERTAPENEM 1 GM in SODIUM CHLORIDE 0.9% 50 ML IV SCH (12:06)
[2017-06-22 15:12] VITALS: BP 132/56
[2017-06-22 19:12] VITALS: BP 140/58
[2017-06-23 03:55] VITALS: BP 127/50
[2017-06-23] MEDS: LACTOBACILLUS 1GM/ PACKET PO SCH ×4 (06:03→20:39)
[2017-06-23] MEDS: FUROSEMIDE 20 MG TABLET PO SCH ×2 (06:03→12:00)
[2017-06-23] MEDS: INSULIN REGULAR 100 UNITS/ML, 3ML VIAL SQ-INSULIN SCH ×4 (07:00→20:40)
[2017-06-23] MEDS ORDERED: POTASSIUM CHLORIDE 20 MEQ TAB.ER.PRT ONE (08:13)
[2017-06-23 08:16] VITALS: BP 140/56
[2017-06-23] MEDS: METOPROLOL TARTRATE 50 MG TABLET PO SCH ×2 (08:19→20:39)
[2017-06-23] MEDS: POTASSIUM CHLORIDE 20 MEQ PACKET PO SCH (08:19)
[2017-06-23] MEDS: metFORMIN 850 MG TABLET PO SCH ×2 (08:19→16:23)
[2017-06-23] MEDS: DOCUSATE 100 MG CAPSULE PO SCH ×2 (08:19→16:23)
[2017-06-23] MEDS: LISINOPRIL 10 MG TABLET PO SCH (08:20)
[2017-06-23] MEDS: APIXABAN 5 MG TABLET PO SCH ×2 (08:20→20:39)
[2017-06-23] MEDS: MULTIVITAMIN 1 TABLET PO SCH (08:20)
[2017-06-23] MEDS: ISOSORBIDE MONONITRATE ER 30 MG TABLET PO SCH ×2 (08:20→20:39)
[2017-06-23] MEDS: ERTAPENEM 1 GM in SODIUM CHLORIDE 0.9% 50 ML IV SCH (12:49)
[2017-06-23 14:23] VITALS: BP 130/49
[2017-06-23 19:16] VITALS: BP 129/64
[2017-06-23] MEDS: DIPHENOXYLATE/ATROPINE TABLET PO PRN (23:43)
[2017-06-24 02:51] VITALS: BP 139/55
[2017-06-24] MEDS: FUROSEMIDE 20 MG TABLET PO SCH ×2 (05:00→12:00)
[2017-06-24 05:50] LABS: BASOPHILS # (AUTO) 0.03 x10^3/uL (0-0.1); BASOPHILS % (AUTO) 0 % (0-1); EOSINOPHILS # (AUTO) 0.42 x10^3/uL (0-0.4); EOSINOPHILS % (AUTO) 6 % (1-7); HCT (SEDRATE) 29.8 % (34.6-47.8); LYMPHOCYTES # (AUTO) 1.72 x10^3/uL (1-3.4); LYMPHOCYTES % (AUTO) 24 % (22-44); MD NO; MEAN CORPUSCULAR HEMOGLOBIN 25.3 pg (27.0-34.8); MEAN CORPUSCULAR VOLUME 79.1 fL (80-100); MEAN PLATELET VOLUME 6.3 fL (7.4-10.4); MONOCYTES # (AUTO) 0.84 x10^3/uL (0.2-0.8); MONOCYTES % (AUTO) 12 % (2-9); NEUTROPHILS % (AUTO) 58 % (42-75); PLATELET COUNT 561 x10^3/uL (130-400); RED BLOOD COUNT 3.77 x10^6/uL (3.82-5.3); RED CELL DISTRIBUTION WIDTH 17.6 % (9.6-15.2)
[2017-06-24 05:51] LABS: ALANINE AMINOTRANSFERASE 52 U/L (12-78); ALBUMIN 2.3 g/dL (3.4-5.0); ANION GAP 9 mmol/L (5-15); CALCIUM 8.7 mg/dL (8.5-10.1); CHLORIDE 112 mmol/L (98-107); CREATININE 0.88 mg/dL (0.55-1.02)
[2017-06-24 06:01] LABS: ALKALINE PHOSPHATASE 114 U/L (45-117); BILIRUBIN,TOTAL 0.3 mg/dL (0.2-1.0); TOTAL PROTEIN 6.6 g/dL (6.4-8.2)
[2017-06-24] MEDS: LACTOBACILLUS 1GM/ PACKET PO SCH ×4 (06:17→22:02)
[2017-06-24] MEDS: INSULIN REGULAR 100 UNITS/ML, 3ML VIAL SQ-INSULIN SCH ×4 (06:22→20:46)
[2017-06-24 06:28] LABS: SEDIMENTATION RATE 101 mm/hr (0-20)
[2017-06-24 07:35] VITALS: BP_SYST 108; BP_SYST 131; BP_DIAS 57
[2017-06-24] MEDS: DOCUSATE 100 MG CAPSULE PO SCH (09:00)
[2017-06-24] MEDS: metFORMIN 850 MG TABLET PO SCH (09:06)
[2017-06-24] MEDS: LISINOPRIL 10 MG TABLET PO SCH (09:06)
[2017-06-24] MEDS: APIXABAN 5 MG TABLET PO SCH ×3 (09:06→22:03)
[2017-06-24] MEDS: MULTIVITAMIN 1 TABLET PO SCH (09:06)
[2017-06-24] MEDS: METOPROLOL TARTRATE 50 MG TABLET PO SCH ×2 (09:06→22:02)
[2017-06-24] MEDS: ISOSORBIDE MONONITRATE ER 30 MG TABLET PO SCH ×2 (09:18→22:03)
[2017-06-24] MEDS: POTASSIUM CHLORIDE 20 MEQ PACKET PO SCH (09:18)
[2017-06-24] MEDS: ERTAPENEM 1 GM in SODIUM CHLORIDE 0.9% 50 ML IV SCH (12:31)
[2017-06-24 12:54] VITALS: BP 112/50
[2017-06-24] MEDS: NS + 20MEQ KCL 1,000 ML IV SCH (15:03)
[2017-06-24] MEDS: DIPHENOXYLATE/ATROPINE TABLET PO PRN ×2 (17:59→22:17)
[2017-06-24 20:38] VITALS: BP 108/55
[2017-06-25] MEDS: NS + 20MEQ KCL 1,000 ML IV SCH ×2 (01:07→11:08)
[2017-06-25] MEDS: DIPHENOXYLATE/ATROPINE TABLET PO PRN ×2 (03:40→09:29)
[2017-06-25 04:10] VITALS: BP 109/45
[2017-06-25] MEDS: FUROSEMIDE 20 MG TABLET PO SCH ×2 (05:00→12:00)
[2017-06-25] MEDS: ACETAMINOPHEN 325 MG TABLET PO PRN (05:29)
[2017-06-25] MEDS: LACTOBACILLUS 1GM/ PACKET PO SCH ×4 (05:30→21:11)
[2017-06-25 07:08] VITALS: BP 108/44
[2017-06-25] MEDS: INSULIN REGULAR 100 UNITS/ML, 3ML VIAL SQ-INSULIN SCH ×4 (07:11→21:10)
[2017-06-25] MEDS ORDERED: POTASSIUM CHLORIDE 20 MEQ TAB.ER.PRT ONE (08:34)
[2017-06-25] MEDS: POTASSIUM CHLORIDE 20 MEQ PACKET PO SCH (08:40)
[2017-06-25] MEDS: MULTIVITAMIN 1 TABLET PO SCH (08:41)
[2017-06-25] MEDS: APIXABAN 5 MG TABLET PO SCH ×2 (08:41→21:11)
[2017-06-25] MEDS: METOPROLOL TARTRATE 50 MG TABLET PO SCH ×2 (08:41→21:11)
[2017-06-25] MEDS: LISINOPRIL 10 MG TABLET PO SCH (08:41)
[2017-06-25] MEDS: ISOSORBIDE MONONITRATE ER 30 MG TABLET PO SCH ×2 (08:50→21:18)
[2017-06-25] MEDS: ERTAPENEM 1 GM in SODIUM CHLORIDE 0.9% 50 ML IV SCH (12:29)
[2017-06-25 12:35] VITALS: BP 128/48
[2017-06-25] MEDS ORDERED: MIDAZOLAM 1 MG/ML, 2ML ONE (13:28)
[2017-06-25] MEDS ORDERED: FENTANYL PF 250 MCG/5ML ONE (13:28)
[2017-06-25] MEDS ORDERED: SUCCINYLCHOLINE 20 MG/ML, 10ML ONE (13:35)
[2017-06-25] MEDS ORDERED: GLYCOPYRROLATE 0.2MG/1ML, 5ML ONE (13:35)
[2017-06-25] MEDS ORDERED: DEXAMETHASONE 4 MG/ML, 1ML ONE (13:35)
[2017-06-25] MEDS ORDERED: PROPOFOL 10 MG/ML, 20ML ONE (13:35)
[2017-06-25] MEDS ORDERED: CEFAZOLIN 1,000 MG ONE (13:35)
[2017-06-25] MEDS ORDERED: NEOSTIGMINE 1 MG/ML, 10ML ONE (13:35)
[2017-06-25] MEDS ORDERED: BACITRACIN 50,000 UNIT ONE (14:07)
[2017-06-25] MEDS ORDERED: BUPIVACAINE/PF 0.5% ONE (14:07)
[2017-06-25] MEDS ORDERED: EPINEPHRINE 1 MG/ML, 1ML ONE (14:07)
[2017-06-25] MEDS ORDERED: PROMETHAZINE 25 MG/ML, 1ML IV PRN (16:00)
[2017-06-25] MEDS ORDERED: MORPHINE SULFATE 4 MG/ML, 1ML IVPush PRN (16:00)
[2017-06-25] MEDS ORDERED: LABETALOL 5MG/ML, 20ML IV PRN (16:00)
[2017-06-25] MEDS ORDERED: LORazepam 2 MG/ML, 1ML IVPush PRN (16:00)
[2017-06-25] MEDS ORDERED: ONDANSETRON ODT 8 MG PO PRN (16:00)
[2017-06-25] MEDS ORDERED: OXYcodone 5 MG/5 ML ORAL.SOL UDC PO PRN (16:00)
[2017-06-25] MEDS ORDERED: PROMETHAZINE 25 MG/ML, 1ML IM PRN ×2 (16:00)
[2017-06-25] MEDS ORDERED: PROMETHAZINE 12.5 MG SUPP PR PRN (16:00)
[2017-06-25] MEDS ORDERED: HYDROmorphone 2 MG/ML, 1ML IV PRN (16:00)
[2017-06-25] MEDS ORDERED: FENTANYL PF 100 MCG/2ML IV PRN (16:00)
[2017-06-25] MEDS ORDERED: hydrALAzine 20 MG/ML, 1ML IV PRN (16:00)
[2017-06-25] MEDS ORDERED: PROMETHAZINE 25 MG SUPP PR PRN (16:00)
[2017-06-25] MEDS ORDERED: ACETAMINOPHEN 325 MG TABLET PO PRN (16:00)
[2017-06-25] MEDS ORDERED: ALBUTEROL SULFATE 2.5 MG/3 ML NPPB PRN (16:00)
[2017-06-25] MEDS ORDERED: OXYcodone 5 MG/5 ML ORAL.SOL UDC ONE (16:05)
[2017-06-25] MEDS ORDERED: ACETAMINOPHEN 650 MG/20.3 ML UDC ONE ×2 (16:05→16:08)
[2017-06-25] MEDS: LACTATED RINGERS 1,000 ML IV SCH (16:06)
[2017-06-25 16:53] VITALS: BP 130/56
[2017-06-25 19:45] VITALS: BP 105/54
[2017-06-26 00:01] VITALS: BP 116/49
[2017-06-26] MEDS: NS + 20MEQ KCL 1,000 ML IV SCH ×3 (01:00→21:00)
[2017-06-26] MEDS: ACETAMINOPHEN 325 MG TABLET PO PRN ×4 (01:44→20:08)
[2017-06-26 04:30] VITALS: BP 129/51
[2017-06-26 05:48] LABS: BASOPHILS # (AUTO) 0.02 x10^3/uL (0-0.1); BASOPHILS % (AUTO) 0 % (0-1); EOSINOPHILS # (AUTO) 0.32 x10^3/uL (0-0.4); EOSINOPHILS % (AUTO) 5 % (1-7); LYMPHOCYTES % (AUTO) 20 % (22-44); MD NO; MEAN CORPUSCULAR HEMOGLOBIN 24.2 pg (27.0-34.8); MEAN PLATELET VOLUME 6.3 fL (7.4-10.4); MONOCYTES # (AUTO) 0.58 x10^3/uL (0.2-0.8); MONOCYTES % (AUTO) 9 % (2-9); NEUTROPHILS # (AUTO) 4.26 x10^3/uL (1.8-6.8); NEUTROPHILS % (AUTO) 66 % (42-75); PLATELET COUNT 563 x10^3/uL (130-400); RED BLOOD COUNT 3.47 x10^6/uL (3.82-5.3); RED CELL DISTRIBUTION WIDTH 17.2 % (9.6-15.2)
[2017-06-26] MEDS: FUROSEMIDE 20 MG TABLET PO SCH ×2 (05:57→12:02)
[2017-06-26] MEDS: LACTOBACILLUS 1GM/ PACKET PO SCH ×4 (05:57→20:08)
[2017-06-26 05:58] LABS: ALBUMIN 2.3 g/dL (3.4-5.0); ANION GAP 7 mmol/L (5-15); CALCIUM 8.2 mg/dL (8.5-10.1); CHLORIDE 112 mmol/L (98-107); CREATININE 0.76 mg/dL (0.55-1.02)
[2017-06-26 08:21] VITALS: BP 124/44
[2017-06-26] MEDS: INSULIN REGULAR 100 UNITS/ML, 3ML VIAL SQ-INSULIN SCH ×4 (08:53→20:37)
[2017-06-26] MEDS: MULTIVITAMIN 1 TABLET PO SCH (08:54)
[2017-06-26] MEDS: ISOSORBIDE MONONITRATE ER 30 MG TABLET PO SCH ×2 (08:54→20:07)
[2017-06-26] MEDS: METOPROLOL TARTRATE 50 MG TABLET PO SCH ×2 (08:54→20:08)
[2017-06-26] MEDS: LISINOPRIL 10 MG TABLET PO SCH (08:54)
[2017-06-26] MEDS: APIXABAN 5 MG TABLET PO SCH ×2 (08:54→20:07)
[2017-06-26] MEDS: POTASSIUM CHLORIDE 20 MEQ PACKET PO SCH (08:55)
[2017-06-26] MEDS: LACTATED RINGERS 1,000 ML IV SCH (12:03)
[2017-06-26] MEDS: ERTAPENEM 1 GM in SODIUM CHLORIDE 0.9% 50 ML IV SCH (12:03)
[2017-06-26 13:00] VITALS: BP 110/50
[2017-06-26] MEDS: DIPHENOXYLATE/ATROPINE TABLET PO PRN (17:46)
[2017-06-26 18:37] VITALS: BP 121/49
[2017-06-27 00:06] VITALS: BP 115/46
[2017-06-27] MEDS: FUROSEMIDE 20 MG TABLET PO SCH ×2 (05:00→13:34)
[2017-06-27] MEDS: NS + 20MEQ KCL 1,000 ML IV SCH (05:00)
[2017-06-27] MEDS: ACETAMINOPHEN 325 MG TABLET PO PRN ×3 (06:18→20:46)
[2017-06-27] MEDS: LACTOBACILLUS 1GM/ PACKET PO SCH ×2 (06:18→13:34)
[2017-06-27] MEDS: INSULIN REGULAR 100 UNITS/ML, 3ML VIAL SQ-INSULIN SCH ×4 (07:25→20:42)
[2017-06-27] MEDS: LACTATED RINGERS 1,000 ML IV SCH ×2 (07:25→20:42)
[2017-06-27 08:15] VITALS: BP 130/45
[2017-06-27] MEDS: POTASSIUM CHLORIDE 20 MEQ PACKET PO SCH (08:32)
[2017-06-27] MEDS: METOPROLOL TARTRATE 50 MG TABLET PO SCH ×2 (08:33→20:22)
[2017-06-27] MEDS: MULTIVITAMIN 1 TABLET PO SCH (08:33)
[2017-06-27] MEDS: ISOSORBIDE MONONITRATE ER 30 MG TABLET PO SCH ×2 (08:33→20:22)
[2017-06-27] MEDS: LISINOPRIL 10 MG TABLET PO SCH (08:33)
[2017-06-27] MEDS: DIPHENOXYLATE/ATROPINE TABLET PO PRN ×2 (08:33→16:11)
[2017-06-27] MEDS: APIXABAN 5 MG TABLET PO SCH ×2 (08:33→20:22)
[2017-06-27 10:57] LABS: % IRON SATURATION 8 % (20-55); IRON LEVEL 22 mcg/dL (50-170); TOTAL IRON BINDING CAPACITY 281 mcg/dL (250-450)
[2017-06-27 13:30] VITALS: BP 120/52
[2017-06-27] MEDS: ERTAPENEM 1 GM in SODIUM CHLORIDE 0.9% 50 ML IV SCH (13:34)
[2017-06-27] MEDS: LACTOBACILLUS CHEW TABLET PO SCH ×2 (16:11→20:22)
[2017-06-27] MEDS: IRON SUCROSE COMPLEX 100MG/5ML IV SCH (16:11)
[2017-06-27 19:13] VITALS: BP 100/40
[2017-06-28 01:56] VITALS: BP 130/50
[2017-06-28] MEDS: LACTOBACILLUS CHEW TABLET PO SCH ×4 (06:31→21:19)
[2017-06-28] MEDS: FUROSEMIDE 20 MG TABLET PO SCH ×2 (06:31→11:58)
[2017-06-28 08:33] VITALS: BP 124/56
[2017-06-28] MEDS: IRON SUCROSE COMPLEX 100MG/5ML IV SCH (08:49)
[2017-06-28] MEDS: INSULIN REGULAR 100 UNITS/ML, 3ML VIAL SQ-INSULIN SCH ×4 (08:59→21:00)
[2017-06-28] MEDS: LISINOPRIL 10 MG TABLET PO SCH (09:00)
[2017-06-28] MEDS: ISOSORBIDE MONONITRATE ER 30 MG TABLET PO SCH ×3 (09:00→21:21)
[2017-06-28] MEDS: APIXABAN 5 MG TABLET PO SCH ×2 (09:00→21:21)
[2017-06-28] MEDS: POTASSIUM CHLORIDE 20 MEQ TAB.ER.PRT PO SCH (09:01)
[2017-06-28] MEDS: ACETAMINOPHEN 325 MG TABLET PO PRN (09:01)
[2017-06-28] MEDS: METOPROLOL TARTRATE 50 MG TABLET PO SCH ×2 (09:01→21:21)
[2017-06-28] MEDS: DIPHENOXYLATE/ATROPINE TABLET PO PRN (09:01)
[2017-06-28] MEDS: MULTIVITAMIN 1 TABLET PO SCH (09:01)
[2017-06-28 09:10] VITALS: BP 136/62
[2017-06-28] MEDS: ERTAPENEM 1 GM in SODIUM CHLORIDE 0.9% 50 ML IV SCH (12:13)
[2017-06-28 14:47] VITALS: BP 96/44
[2017-06-28] MEDS: LACTATED RINGERS 1,000 ML IV SCH (16:27)
[2017-06-28 16:38] VITALS: BP 101/47
[2017-06-28 19:13] VITALS: BP 108/54
[2017-06-29 01:47] VITALS: BP 116/49
[2017-06-29 05:21] LABS: BASOPHILS # (AUTO) 0.07 x10^3/uL (0-0.1); BASOPHILS % (AUTO) 1 % (0-1); EOSINOPHILS # (AUTO) 0.44 x10^3/uL (0-0.4); EOSINOPHILS % (AUTO) 8 % (1-7); LYMPHOCYTES # (AUTO) 1.67 x10^3/uL (1-3.4); LYMPHOCYTES % (AUTO) 29 % (22-44); MD NO; MEAN CORPUSCULAR HEMOGLOBIN 24.6 pg (27.0-34.8); MEAN CORPUSCULAR VOLUME 77.1 fL (80-100); MEAN PLATELET VOLUME 6.2 fL (7.4-10.4); MONOCYTES # (AUTO) 0.58 x10^3/uL (0.2-0.8); MONOCYTES % (AUTO) 10 % (2-9); NEUTROPHILS # (AUTO) 2.94 x10^3/uL (1.8-6.8); NEUTROPHILS % (AUTO) 52 % (42-75); PLATELET COUNT 563 x10^3/uL (130-400); RED BLOOD COUNT 3.89 x10^6/uL (3.82-5.3); RED CELL DISTRIBUTION WIDTH 17.3 % (9.6-15.2)
[2017-06-29 05:26] LABS: ALBUMIN 2.5 g/dL (3.4-5.0); ANION GAP 8 mmol/L (5-15); CHLORIDE 109 mmol/L (98-107)
[2017-06-29 05:30] LABS: CREATININE 0.92 mg/dL (0.55-1.02)
[2017-06-29] MEDS: INSULIN REGULAR 100 UNITS/ML, 3ML VIAL SQ-INSULIN SCH ×4 (06:23→21:46)
[2017-06-29] MEDS: FUROSEMIDE 20 MG TABLET PO SCH ×2 (06:32→12:29)
[2017-06-29] MEDS: LACTOBACILLUS CHEW TABLET PO SCH ×4 (06:32→21:45)
[2017-06-29 08:00] VITALS: BP 129/48
[2017-06-29] MEDS: APIXABAN 5 MG TABLET PO SCH ×2 (09:59→21:45)
[2017-06-29] MEDS: LISINOPRIL 10 MG TABLET PO SCH (09:59)
[2017-06-29] MEDS: POTASSIUM CHLORIDE 20 MEQ TAB.ER.PRT PO SCH (09:59)
[2017-06-29] MEDS: MULTIVITAMIN 1 TABLET PO SCH (10:00)
[2017-06-29] MEDS: METOPROLOL TARTRATE 50 MG TABLET PO SCH ×2 (10:00→21:47)
[2017-06-29] MEDS: ISOSORBIDE MONONITRATE ER 30 MG TABLET PO SCH ×2 (10:00→21:45)
[2017-06-29] MEDS: IRON SUCROSE COMPLEX 100MG/5ML IV SCH (10:00)
[2017-06-29] MEDS: LACTATED RINGERS 1,000 ML IV SCH (12:00)
[2017-06-29] MEDS: ERTAPENEM 1 GM in SODIUM CHLORIDE 0.9% 50 ML IV SCH (12:33)
[2017-06-29 13:49] VITALS: BP 115/74
[2017-06-29 19:11] VITALS: BP 130/52
[2017-06-30 00:23] VITALS: BP 129/54
[2017-06-30] MEDS: FUROSEMIDE 20 MG TABLET PO SCH ×3 (05:23→11:51)
[2017-06-30] MEDS: LACTOBACILLUS CHEW TABLET PO SCH ×4 (05:23→21:33)
[2017-06-30] MEDS: INSULIN REGULAR 100 UNITS/ML, 3ML VIAL SQ-INSULIN SCH ×4 (06:47→21:35)
[2017-06-30] MEDS: LACTATED RINGERS 1,000 ML IV SCH (07:21)
[2017-06-30 07:41] VITALS: BP 114/44
[2017-06-30] MEDS: APIXABAN 5 MG TABLET PO SCH ×2 (08:57→21:36)
[2017-06-30] MEDS: POTASSIUM CHLORIDE 20 MEQ TAB.ER.PRT PO SCH (08:58)
[2017-06-30] MEDS: METOPROLOL TARTRATE 50 MG TABLET PO SCH ×2 (08:58→21:34)
[2017-06-30] MEDS: LISINOPRIL 10 MG TABLET PO SCH (08:58)
[2017-06-30] MEDS: ISOSORBIDE MONONITRATE ER 30 MG TABLET PO SCH ×2 (08:58→21:34)
[2017-06-30] MEDS: MULTIVITAMIN 1 TABLET PO SCH (08:58)
[2017-06-30] MEDS: IRON SUCROSE COMPLEX 100MG/5ML IV SCH (09:55)
[2017-06-30] MEDS: ERTAPENEM 1 GM in SODIUM CHLORIDE 0.9% 50 ML IV SCH (11:43)
[2017-06-30 12:59] VITALS: BP 106/46
[2017-06-30 21:22] VITALS: BP 133/51
[2017-07-01 02:56] VITALS: BP 123/47
[2017-07-01] MEDS: LACTATED RINGERS 1,000 ML IV SCH (04:00)
[2017-07-01] MEDS: FUROSEMIDE 20 MG TABLET PO SCH ×2 (05:46→11:26)
[2017-07-01] MEDS: LACTOBACILLUS CHEW TABLET PO SCH ×4 (05:46→21:10)
[2017-07-01 06:20] VITALS: BP 125/53
[2017-07-01] MEDS: IRON SUCROSE COMPLEX 100MG/5ML IV SCH (08:07)
[2017-07-01] MEDS: INSULIN REGULAR 100 UNITS/ML, 3ML VIAL SQ-INSULIN SCH ×4 (08:07→21:11)
[2017-07-01] MEDS: METOPROLOL TARTRATE 50 MG TABLET PO SCH ×2 (08:08→21:10)
[2017-07-01] MEDS: POTASSIUM CHLORIDE 20 MEQ TAB.ER.PRT PO SCH (08:08)
[2017-07-01] MEDS: LISINOPRIL 10 MG TABLET PO SCH (08:08)
[2017-07-01] MEDS: ISOSORBIDE MONONITRATE ER 30 MG TABLET PO SCH ×2 (08:08→21:10)
[2017-07-01] MEDS: MULTIVITAMIN 1 TABLET PO SCH (08:08)
[2017-07-01] MEDS: APIXABAN 5 MG TABLET PO SCH ×2 (08:08→21:10)
[2017-07-01] MEDS: ERTAPENEM 1 GM in SODIUM CHLORIDE 0.9% 50 ML IV SCH (11:26)
[2017-07-01 12:32] VITALS: BP 101/46
[2017-07-01 12:34] VITALS: BP 89/48
[2017-07-01 21:08] VITALS: BP 118/52
[2017-07-02 03:22] VITALS: BP 124/48
[2017-07-02 05:26] LABS: HCT (SEDRATE) 33.4 % (34.6-47.8)
[2017-07-02] MEDS: LACTOBACILLUS CHEW TABLET PO SCH ×4 (06:01→20:22)
[2017-07-02] MEDS: FUROSEMIDE 20 MG TABLET PO SCH ×2 (06:02→12:38)
[2017-07-02] MEDS: INSULIN REGULAR 100 UNITS/ML, 3ML VIAL SQ-INSULIN SCH ×4 (07:00→20:37)
[2017-07-02 07:51] VITALS: BP 125/46
[2017-07-02] MEDS: LISINOPRIL 10 MG TABLET PO SCH (08:18)
[2017-07-02] MEDS: ISOSORBIDE MONONITRATE ER 30 MG TABLET PO SCH ×2 (08:18→20:27)
[2017-07-02] MEDS: METOPROLOL TARTRATE 50 MG TABLET PO SCH ×2 (08:18→20:24)
[2017-07-02] MEDS: MULTIVITAMIN 1 TABLET PO SCH (08:18)
[2017-07-02] MEDS: POTASSIUM CHLORIDE 20 MEQ TAB.ER.PRT PO SCH (08:18)
[2017-07-02] MEDS: APIXABAN 5 MG TABLET PO SCH ×2 (08:18→20:24)
[2017-07-02] MEDS: ERTAPENEM 1 GM in SODIUM CHLORIDE 0.9% 50 ML IV SCH (12:38)
[2017-07-02 12:45] VITALS: BP 112/52
[2017-07-02 12:57] VITALS: BP 108/47
[2017-07-02] MEDS: LACTATED RINGERS 1,000 ML IV SCH ×2 (19:36)
[2017-07-02] MEDS: ACETAMINOPHEN 325 MG TABLET PO PRN (20:23)
[2017-07-02 20:24] VITALS: BP 117/57
[2017-07-03 04:51] VITALS: BP 110/55
[2017-07-03] MEDS: FUROSEMIDE 20 MG TABLET PO SCH ×2 (06:17→12:27)
[2017-07-03] MEDS: LACTOBACILLUS CHEW TABLET PO SCH ×4 (06:17→21:14)
[2017-07-03] MEDS: INSULIN REGULAR 100 UNITS/ML, 3ML VIAL SQ-INSULIN SCH ×4 (07:00→21:24)
[2017-07-03 07:17] VITALS: BP 132/56
[2017-07-03] MEDS: APIXABAN 5 MG TABLET PO SCH (08:24)
[2017-07-03] MEDS: POTASSIUM CHLORIDE 20 MEQ TAB.ER.PRT PO SCH (08:24)
[2017-07-03] MEDS: ISOSORBIDE MONONITRATE ER 30 MG TABLET PO SCH ×2 (08:24→21:15)
[2017-07-03] MEDS: METOPROLOL TARTRATE 50 MG TABLET PO SCH ×2 (08:25→21:15)
[2017-07-03] MEDS: LISINOPRIL 10 MG TABLET PO SCH (08:25)
[2017-07-03] MEDS: MULTIVITAMIN 1 TABLET PO SCH (08:25)
[2017-07-03] MEDS: ERTAPENEM 1 GM in SODIUM CHLORIDE 0.9% 50 ML IV SCH (12:28)
[2017-07-03] MEDS: LACTATED RINGERS 1,000 ML IV SCH (15:33)
[2017-07-03 16:00] VITALS: BP 130/64
[2017-07-03 19:59] VITALS: BP 117/56
[2017-07-04 01:34] VITALS: BP 153/59
[2017-07-04] MEDS: LACTOBACILLUS CHEW TABLET PO SCH ×4 (03:31→22:05)
[2017-07-04] MEDS: FUROSEMIDE 20 MG TABLET PO SCH ×2 (03:31→12:53)
[2017-07-04 06:55] VITALS: BP 147/65
[2017-07-04] MEDS: INSULIN REGULAR 100 UNITS/ML, 3ML VIAL SQ-INSULIN SCH ×4 (07:00→23:09)
[2017-07-04] MEDS: MULTIVITAMIN 1 TABLET PO SCH (08:55)
[2017-07-04] MEDS: POTASSIUM CHLORIDE 20 MEQ TAB.ER.PRT PO SCH (08:55)
[2017-07-04] MEDS: LISINOPRIL 10 MG TABLET PO SCH (08:56)
[2017-07-04] MEDS: METOPROLOL TARTRATE 50 MG TABLET PO SCH ×2 (08:56→22:05)
[2017-07-04] MEDS: ISOSORBIDE MONONITRATE ER 30 MG TABLET PO SCH ×2 (11:44→22:05)
[2017-07-04] MEDS: ERTAPENEM 1 GM in SODIUM CHLORIDE 0.9% 50 ML IV SCH (12:54)
[2017-07-04 14:04] VITALS: BP 108/45
[2017-07-04] MEDS ORDERED: FENTANYL PF 100 MCG/2ML ONE (18:30)
[2017-07-04] MEDS ORDERED: PHENYLEPHRINE 10 MG/ML ONE (18:30)
[2017-07-04] MEDS ORDERED: MIDAZOLAM 1 MG/ML, 2ML IV PRN (19:30)
[2017-07-04] MEDS ORDERED: ONDANSETRON ODT 8 MG PO PRN (19:30)
[2017-07-04] MEDS ORDERED: FENTANYL PF 100 MCG/2ML IV PRN (19:30)
[2017-07-04] MEDS ORDERED: LABETALOL 5MG/ML, 20ML IV PRN (19:30)
[2017-07-04] MEDS ORDERED: ALBUTEROL/IPRATROPIUM 2.5MG/0.5MG, 3 ML NPPB PRN (19:30)
[2017-07-04] MEDS ORDERED: ACETAMINOPHEN 325 MG TABLET PO PRN (19:30)
[2017-07-04] MEDS ORDERED: OXYcodone 5 MG/5 ML ORAL.SOL UDC PO PRN (19:30)
[2017-07-04] MEDS ORDERED: hydrALAzine 20 MG/ML, 1ML IV PRN (19:30)
[2017-07-04] MEDS ORDERED: PROPOFOL 10 MG/ML, 20ML ONE (19:52)
[2017-07-04] MEDS ORDERED: CEFAZOLIN 1,000 MG ONE (19:52)
[2017-07-04] MEDS ORDERED: DEXAMETHASONE 4 MG/ML, 1ML ONE (19:52)
[2017-07-04] MEDS: LACTATED RINGERS 1,000 ML IV SCH (20:00)
[2017-07-04 21:09] VITALS: BP 101/52
[2017-07-04 23:49] VITALS: BP 95/49
[2017-07-05 03:46] VITALS: BP 99/52
[2017-07-05] MEDS: ACETAMINOPHEN 325 MG TABLET PO PRN (03:55)
[2017-07-05] MEDS: LACTOBACILLUS CHEW TABLET PO SCH ×4 (05:21→21:15)
[2017-07-05] MEDS: FUROSEMIDE 20 MG TABLET PO SCH ×2 (05:21→12:18)
[2017-07-05 08:00] VITALS: BP 96/61
[2017-07-05] MEDS: LACTATED RINGERS 1,000 ML IV SCH (08:00)
[2017-07-05] MEDS: METOPROLOL TARTRATE 50 MG TABLET PO SCH ×2 (09:00→21:15)
[2017-07-05] MEDS: LISINOPRIL 10 MG TABLET PO SCH (09:00)
[2017-07-05] MEDS: ISOSORBIDE MONONITRATE ER 30 MG TABLET PO SCH ×2 (09:00→21:14)
[2017-07-05] MEDS: INSULIN REGULAR 100 UNITS/ML, 3ML VIAL SQ-INSULIN SCH ×4 (09:07→21:15)
[2017-07-05] MEDS: POTASSIUM CHLORIDE 20 MEQ TAB.ER.PRT PO SCH (09:08)
[2017-07-05] MEDS: MULTIVITAMIN 1 TABLET PO SCH (09:09)
[2017-07-05] MEDS: APIXABAN 5 MG TABLET PO SCH ×2 (09:09→21:14)
[2017-07-05] MEDS: ERTAPENEM 1 GM in SODIUM CHLORIDE 0.9% 50 ML IV SCH (12:19)
[2017-07-05 13:54] VITALS: BP 112/52
[2017-07-05 16:41] VITALS: BP 107/47
[2017-07-05 20:20] VITALS: BP 135/59
[2017-07-05] MEDS: ONDANSETRON ODT 4 MG PO PRN (21:13)
[2017-07-06 00:40] VITALS: BP 109/48
[2017-07-06] MEDS: LACTATED RINGERS 1,000 ML IV SCH (04:00)
[2017-07-06] MEDS: LACTOBACILLUS CHEW TABLET PO SCH ×4 (06:20→22:03)
[2017-07-06] MEDS: FUROSEMIDE 20 MG TABLET PO SCH ×2 (06:20→11:07)
[2017-07-06] MEDS: INSULIN REGULAR 100 UNITS/ML, 3ML VIAL SQ-INSULIN SCH ×4 (07:15→22:04)
[2017-07-06 07:27] VITALS: BP 125/49
[2017-07-06] MEDS: POTASSIUM CHLORIDE 20 MEQ TAB.ER.PRT PO SCH (08:55)
[2017-07-06] MEDS: APIXABAN 5 MG TABLET PO SCH ×2 (08:55→22:03)
[2017-07-06] MEDS: MULTIVITAMIN 1 TABLET PO SCH (08:55)
[2017-07-06 08:57] VITALS: BP 105/51
[2017-07-06] MEDS: ISOSORBIDE MONONITRATE ER 30 MG TABLET PO SCH ×2 (09:10→22:03)
[2017-07-06] MEDS: LISINOPRIL 10 MG TABLET PO SCH (09:10)
[2017-07-06] MEDS: METOPROLOL TARTRATE 50 MG TABLET PO SCH (09:26)
[2017-07-06] MEDS: ERTAPENEM 1 GM in SODIUM CHLORIDE 0.9% 50 ML IV SCH (11:59)
[2017-07-06 14:45] VITALS: BP 131/53
[2017-07-06 21:08] VITALS: BP 120/56
[2017-07-06] MEDS: METOPROLOL TARTRATE 25 MG TABLET PO SCH (22:03)
[2017-07-07 00:56] VITALS: BP 134/60
[2017-07-07] MEDS: LACTOBACILLUS CHEW TABLET PO SCH ×4 (06:13→20:47)
[2017-07-07] MEDS: FUROSEMIDE 20 MG TABLET PO SCH ×2 (06:14→12:32)
[2017-07-07 07:30] VITALS: BP 120/58
[2017-07-07] MEDS: INSULIN REGULAR 100 UNITS/ML, 3ML VIAL SQ-INSULIN SCH ×4 (08:16→21:17)
[2017-07-07] MEDS: METOPROLOL TARTRATE 25 MG TABLET PO SCH ×2 (08:16→20:50)
[2017-07-07] MEDS: ISOSORBIDE MONONITRATE ER 30 MG TABLET PO SCH ×2 (08:17→20:50)
[2017-07-07] MEDS: LISINOPRIL 5 MG TABLET PO SCH (08:17)
[2017-07-07] MEDS: APIXABAN 5 MG TABLET PO SCH ×2 (08:17→20:48)
[2017-07-07] MEDS: MULTIVITAMIN 1 TABLET PO SCH (08:17)
[2017-07-07] MEDS: POTASSIUM CHLORIDE 20 MEQ TAB.ER.PRT PO SCH (08:17)
[2017-07-07] MEDS: ERTAPENEM 1 GM in SODIUM CHLORIDE 0.9% 50 ML IV SCH (12:32)
[2017-07-07 13:18] VITALS: BP 108/51
[2017-07-07 18:54] VITALS: BP 110/53
[2017-07-07] MEDS: LACTATED RINGERS 1,000 ML IV SCH ×2 (19:12)
[2017-07-07] MEDS: ACETAMINOPHEN 325 MG TABLET PO PRN (20:47)
[2017-07-08 02:39] VITALS: BP 115/69
[2017-07-08] MEDS: FUROSEMIDE 20 MG TABLET PO SCH ×2 (05:52→12:00)
[2017-07-08] MEDS: ACETAMINOPHEN 325 MG TABLET PO PRN ×2 (05:52→21:23)
[2017-07-08] MEDS: LACTOBACILLUS CHEW TABLET PO SCH ×4 (05:52→20:42)
[2017-07-08 06:19] LABS: MEAN CORPUSCULAR HGB CONC 32.2 g/dL (32.4-35.8); MEAN CORPUSCULAR VOLUME 80.9 fL (80-100); MEAN PLATELET VOLUME 7.3 fL (7.4-10.4); PLATELET COUNT 282 x10^3/uL (130-400); RED BLOOD COUNT 3.86 x10^6/uL (3.82-5.3); RED CELL DISTRIBUTION WIDTH 23.7 % (9.6-15.2)
[2017-07-08 06:25] LABS: HCT (SEDRATE) 33.4 % (34.6-47.8)
[2017-07-08 06:30] LABS: ALBUMIN 2.7 g/dL (3.4-5.0); ANION GAP 7 mmol/L (5-15); CALCIUM 8.6 mg/dL (8.5-10.1); CHLORIDE 108 mmol/L (98-107)
[2017-07-08 06:37] LABS: BASOPHILS # (AUTO) 0.03 x10^3/uL (0-0.1); BASOPHILS % (AUTO) 1 % (0-1); EOSINOPHILS # (AUTO) 0.59 x10^3/uL (0-0.4); EOSINOPHILS % (AUTO) 12 % (1-7); LYMPHOCYTES # (AUTO) 1.78 x10^3/uL (1-3.4); LYMPHOCYTES % (AUTO) 35 % (22-44); MD SCAN; MONOCYTES # (AUTO) 0.55 x10^3/uL (0.2-0.8); MONOCYTES % (AUTO) 11 % (2-9); NEUTROPHILS % (AUTO) 43 % (42-75)
[2017-07-08 06:40] LABS: ALANINE AMINOTRANSFERASE 69 U/L (12-78); ALKALINE PHOSPHATASE 102 U/L (45-117); BILIRUBIN,TOTAL 0.3 mg/dL (0.2-1.0); CREATININE 0.89 mg/dL (0.55-1.02); TOTAL PROTEIN 6.8 g/dL (6.4-8.2)
[2017-07-08 06:47] VITALS: BP 114/59
[2017-07-08] MEDS: POTASSIUM CHLORIDE 20 MEQ TAB.ER.PRT PO SCH (08:51)
[2017-07-08] MEDS: METOPROLOL TARTRATE 25 MG TABLET PO SCH ×2 (08:51→20:42)
[2017-07-08] MEDS: MULTIVITAMIN 1 TABLET PO SCH (08:51)
[2017-07-08] MEDS: APIXABAN 5 MG TABLET PO SCH ×2 (08:52→20:43)
[2017-07-08] MEDS: ISOSORBIDE MONONITRATE ER 30 MG TABLET PO SCH ×2 (08:52→20:44)
[2017-07-08] MEDS: INSULIN REGULAR 100 UNITS/ML, 3ML VIAL SQ-INSULIN SCH ×4 (08:53→21:23)
[2017-07-08] MEDS: LISINOPRIL 5 MG TABLET PO SCH (09:00)
[2017-07-08] MEDS: ERTAPENEM 1 GM in SODIUM CHLORIDE 0.9% 50 ML IV SCH (13:08)
[2017-07-08 14:09] VITALS: BP 102/52
[2017-07-08] MEDS: LACTATED RINGERS 1,000 ML IV SCH (16:00)
[2017-07-08 19:26] VITALS: BP 110/58
[2017-07-08] MEDS: SIMETHICONE 125 MG CHEW TAB PO PRN (21:23)
[2017-07-09 01:48] VITALS: BP 110/64
[2017-07-09] MEDS: LACTOBACILLUS CHEW TABLET PO SCH (06:06)
[2017-07-09] MEDS: FUROSEMIDE 20 MG TABLET PO SCH (06:06)
[2017-07-09 08:22] VITALS: BP 109/65
[2017-07-09] MEDS: INSULIN REGULAR 100 UNITS/ML, 3ML VIAL SQ-INSULIN SCH (08:28)
[2017-07-09] MEDS: POTASSIUM CHLORIDE 20 MEQ TAB.ER.PRT PO SCH (08:28)
[2017-07-09] MEDS: LISINOPRIL 5 MG TABLET PO SCH (08:28)
[2017-07-09] MEDS: APIXABAN 5 MG TABLET PO SCH (08:28)
[2017-07-09] MEDS: MULTIVITAMIN 1 TABLET PO SCH (08:28)
[2017-07-09] MEDS: ISOSORBIDE MONONITRATE ER 30 MG TABLET PO SCH (08:29)
[2017-07-09] MEDS: METOPROLOL TARTRATE 25 MG TABLET PO SCH (08:29)
== END 2017-07-09 09:08 | DRG 856 ==
LOC: ORIP 12:34 → 4NOR 17:47 → EDSTATUS 06-27 07:30 → 4NOR 07-08 17:52
PROVIDERS: ADMIT Surgery; ATTEND Surgery
PROC: 0JBP0ZZ Excision of Left Lower Leg Subcutaneous Tissue and Fascia, Open Approach (ICD-10-PCS; 2017-06-25)
PROC: 02HV33Z Insertion of Infusion Device into Superior Vena Cava, Percutaneous Approach (ICD-10-PCS; 2017-07-02)
PROC: B548ZZA Ultrasonography of Superior Vena Cava, Guidance (ICD-10-PCS; 2017-07-02)
PROC: 0QBK0ZZ Excision of Left Fibula, Open Approach (ICD-10-PCS; 2017-07-04)
PROC: 0HXLXZZ Transfer Left Lower Leg Skin, External Approach (ICD-10-PCS; principal; 2017-07-04 18:00)
DX: T81.4XXA Infection following a procedure, initial encounter (principal); E43 Unspecified severe protein-calorie malnutrition; E11.51 Type 2 diabetes mellitus with diabetic peripheral angiopathy without gangrene; E11.622 Type 2 diabetes mellitus with other skin ulcer; E11.65 Type 2 diabetes mellitus with hyperglycemia; A04.8 Other specified bacterial intestinal infections; G82.20 Paraplegia, unspecified; L97.909 Non-pressure chronic ulcer of unspecified part of unspecified lower leg with unspecified severity; N39.0 Urinary tract infection, site not specified; T81.30XA Disruption of wound, unspecified, initial encounter; Z68.41 Body mass index [BMI] 40.0-44.9, adult; E11.649 Type 2 diabetes mellitus with hypoglycemia without coma; I71.2 Thoracic aortic aneurysm, without rupture; E66.01 Morbid (severe) obesity due to excess calories; I10 Essential (primary) hypertension; I71.4 Abdominal aortic aneurysm, without rupture; Y83.5 Amputation of limb(s) as the cause of abnormal reaction of the patient, or of later complication, without mention of misadventure at the time of the procedure; D63.8 Anemia in other chronic diseases classified elsewhere; E11.69 Type 2 diabetes mellitus with other specified complication; G54.6 Phantom limb syndrome with pain; E83.51 Hypocalcemia; Z79.4 Long term (current) use of insulin; Z99.3 Dependence on wheelchair; Z90.710 Acquired absence of both cervix and uterus; Z87.891 Personal history of nicotine dependence; Z85.42 Personal history of malignant neoplasm of other parts of uterus; Z89.412 Acquired absence of left great toe; Z79.899 Other long term (current) drug therapy; Z79.1 Long term (current) use of non-steroidal anti-inflammatories (NSAID); Z90.49 Acquired absence of other specified parts of digestive tract; Z81.8 Family history of other mental and behavioral disorders
CPT/HCPCS: 36415; 36569; 76937; 77001; 80048; 80053; 82040; 82947; 82962; 83540; 83550; 83735; 84100; 85025; 85651; 86140; 87046; 87070; 87075; 87077; 87176; 87186; 87205; 87324; 87427; 93005; C1729; J0171; J0690; J0712; J1100; J1335; J1756; J1815; J2250; J2543; J2704; J2710; J3010; J3480; J3490; Q0162; C1751; C1760; J0330; J2370; J7120

== ENCOUNTER 2017-09-23 14:04 | Emergency (ER) | payer MEDICARE, MEDICAID ==
[~2017-09-23] VITALS: Ht 162.6 cm; Wt 92.0 kg
[2017-09-23 15:27] LABS: BASOPHILS # (AUTO) 0.07 x10^3/uL (0-0.1); BASOPHILS % (AUTO) 1 % (0-1); EOSINOPHILS # (AUTO) 0.17 x10^3/uL (0-0.4); EOSINOPHILS % (AUTO) 2 % (1-7); LYMPHOCYTES # (AUTO) 1.95 x10^3/uL (1-3.4); LYMPHOCYTES % (AUTO) 25 % (22-44); MD NO; MEAN CORPUSCULAR HEMOGLOBIN 27.6 pg (27.0-34.8); MEAN CORPUSCULAR VOLUME 83.6 fL (80-100); MEAN PLATELET VOLUME 7.1 fL (7.4-10.4); MONOCYTES # (AUTO) 0.61 x10^3/uL (0.2-0.8); MONOCYTES % (AUTO) 8 % (2-9); NEUTROPHILS # (AUTO) 5.07 x10^3/uL (1.8-6.8); NEUTROPHILS % (AUTO) 64 % (42-75); PLATELET COUNT 315 x10^3/uL (130-400); RED BLOOD COUNT 5.24 x10^6/uL (3.82-5.3); RED CELL DISTRIBUTION WIDTH 18.3 % (9.6-15.2)
[2017-09-23 15:28] LABS: HCT (SEDRATE) 43.8 % (34.6-47.8)
[2017-09-23 15:29] LABS: ALBUMIN 3.7 g/dL (3.4-5.0); ANION GAP 6 mmol/L (5-15); CALCIUM 9.3 mg/dL (8.5-10.1); CHLORIDE 104 mmol/L (98-107)
[2017-09-23 15:38] LABS: C-REACTIVE PROTEIN, QUANT 0.93 mg/dL (0.02-0.49); CREATININE 0.83 mg/dL (0.55-1.02)
[2017-09-23] MEDS ORDERED: LIDOCAINE-MPF 1%, 5ML ONE (16:58)
[2017-09-23] MEDS ORDERED: SILVER NITRATE STICK TP ONE (16:58)
[2017-09-23 17:03] VITALS: BP 129/70
[2017-09-23] MEDS ORDERED: BACITRACIN ZINC OINT 500U/GM, 0.9 GM ONE (17:22)
== END 2017-09-23 19:08 | disposition home or self-care (01) ==
LOC: ED 18:32
DX: L03.031 Cellulitis of right toe (principal); I10 Essential (primary) hypertension; E11.9 Type 2 diabetes mellitus without complications; Z87.891 Personal history of nicotine dependence
CPT/HCPCS: 11730; 36415; 80048; 82040; 85025; 85651; 86140; 99284

== ENCOUNTER → 2018-06-10 | Outpatient (CLI) | payer MEDICARE, MEDICAID | END | disposition home or self-care (01) | LOC: CFH 08:42 | PROVIDERS: ATTEND Internal Medicine Cardiovascular Disease | DX: I08.3 Combined rheumatic disorders of mitral, aortic and tricuspid valves (principal); I10 Essential (primary) hypertension; E11.9 Type 2 diabetes mellitus without complications; E78.5 Hyperlipidemia, unspecified; I48.91 Unspecified atrial fibrillation; I25.2 Old myocardial infarction | CPT/HCPCS: 93306 ==

== ENCOUNTER 2018-07-30 07:34 | Day surgery (SDC) | payer MEDICARE, MEDICAID ==
[~2018-07-30] VITALS: Ht 163.8 cm; Wt 108.0 kg
[~2018-07-30 07:34] MED LIST changes: +LIDOCAINE-MPF 1%, 5ML ONE
[2018-07-30] MEDS ORDERED: METO25TA35 PO (08:22)
[2018-07-30] MEDS ORDERED: LISINOPRIL PO (08:22)
[2018-07-30] MEDS ORDERED: METF500T17 PO (08:26)
[2018-07-30] MEDS ORDERED: INSU100V13 SQ (08:26)
[2018-07-30] MEDS ORDERED: INSU100C5 SQ-INSULIN (08:26)
[2018-07-30] MEDS ORDERED: ACET-1600 PO (08:26)
[2018-07-30 08:27] VITALS: BP 130/79
[2018-07-30] MEDS ORDERED: LACTATED RINGERS 1,000 ML IV SCH (08:30)
[2018-07-30] MEDS ORDERED: FENTANYL PF 100 MCG/2ML ONE (08:32)
[2018-07-30] MEDS ORDERED: NALOXONE 1 MG/ML, 2ML ONE (08:32)
[2018-07-30] MEDS ORDERED: FLUMAZENIL 0.1 MG/1 ML, 5ML ONE (08:32)
[2018-07-30] MEDS ORDERED: MIDAZOLAM 1 MG/ML, 5ML ONE (08:32)
[2018-07-30] MEDS ORDERED: HEPARIN 1,000 UNITS/ML, 10ML ONE (08:32)
[2018-07-30] MEDS ORDERED: PROTAMINE SULFATE 10 MG/ML, 25ML ONE (08:32)
[2018-07-30] MEDS ORDERED: NITROGLYCERIN 5 MG/ML, 10ML ONE (08:33)
[2018-07-30 08:45] LABS: BASOPHILS # (AUTO) 0.04 x10^3/uL (0-0.1); BASOPHILS % (AUTO) 1 % (0-1); EOSINOPHILS # (AUTO) 0.33 x10^3/uL (0-0.4); EOSINOPHILS % (AUTO) 6 % (1-7); LYMPHOCYTES # (AUTO) 1.48 x10^3/uL (1-3.4); LYMPHOCYTES % (AUTO) 29 % (22-44); MD NO; MEAN CORPUSCULAR HGB CONC 32.6 g/dL (32.4-35.8); MEAN PLATELET VOLUME 6.9 fL (7.4-10.4); MONOCYTES # (AUTO) 0.53 x10^3/uL (0.2-0.8); MONOCYTES % (AUTO) 10 % (2-9); NEUTROPHILS # (AUTO) 2.77 x10^3/uL (1.8-6.8); NEUTROPHILS % (AUTO) 54 % (42-75); PLATELET COUNT 237 x10^3/uL (130-400); RED BLOOD COUNT 4.36 x10^6/uL (3.82-5.3); RED CELL DISTRIBUTION WIDTH 14.4 % (9.6-15.2)
[2018-07-30 08:55] LABS: ALANINE AMINOTRANSFERASE 35 U/L (12-78); ALBUMIN 3.6 g/dL (3.4-5.0); ANION GAP 6 mmol/L (5-15); CALCIUM 8.8 mg/dL (8.5-10.1); CHLORIDE 108 mmol/L (98-107); CREATININE 0.91 mg/dL (0.55-1.02)
[2018-07-30 08:57] LABS: ALKALINE PHOSPHATASE 66 U/L (45-117); BILIRUBIN,TOTAL 0.4 mg/dL (0.2-1.0); TOTAL PROTEIN 7.1 g/dL (6.4-8.2)
[2018-07-30] MEDS ORDERED: VISIPAQUE 270 MG/ML, 50ML BOTTLE ONE (09:00)
[2018-07-30] MEDS ORDERED: SODIUM CHLORIDE 0.9% 1,000 ML IV SCH (11:22)
[2018-07-30] MEDS ORDERED: CEFAZOLIN 2 MG in SODIUM CHLORIDE 0.9% 50 ML IV SCH (11:30)
[2018-07-30] MEDS ORDERED: CYCLOBENZAPRINE 10 MG TABLET PO SCH (13:00)
== END 2018-07-30 13:50 | disposition home or self-care (01) ==
LOC: OUT 07:34 → ORIP 11:22 → UNDOADMOB 11:22
PROVIDERS: ATTEND Surgery
DX: I70.211 Atherosclerosis of native arteries of extremities with intermittent claudication, right leg (principal); T81.89XA Other complications of procedures, not elsewhere classified, initial encounter; E66.01 Morbid (severe) obesity due to excess calories; I10 Essential (primary) hypertension; E11.9 Type 2 diabetes mellitus without complications; K21.9 Gastro-esophageal reflux disease without esophagitis; Z68.30 Body mass index [BMI] 30.0-30.9, adult; Z79.4 Long term (current) use of insulin; Z79.01 Long term (current) use of anticoagulants; Z79.899 Other long term (current) drug therapy; Z87.891 Personal history of nicotine dependence; Z89.512 Acquired absence of left leg below knee; Z99.3 Dependence on wheelchair; Z98.890 Other specified postprocedural states; Y83.8 Other surgical procedures as the cause of abnormal reaction of the patient, or of later complication, without mention of misadventure at the time of the procedure
CPT/HCPCS: 37225; 75625; 75710; 80053; 82962; 85025; 99156; 99157; C1725; C1751; C1760; C1769; C1884; C1894; C2623; J1644; J2250; J3010; Q9966; 75630; J2720; J2310

== ENCOUNTER 2018-12-11 18:06 | Inpatient (IN) | payer MEDICARE, MEDICAID ==
[~2018-12-11] VITALS: Ht 162.6 cm; Wt 98.5 kg
[~2018-12-11 18:06] MED LIST changes: +ACET-1600 PO; +ACET-2065 PO; +ASPI81TA45 PO; +ATOR-2 PO; +CALC200T3 PO; +CEPH-376 PO; +CLON0.1T22 PO; +CLOP75TA52 PO; +DOCU-131 PO; +FURO-93 PO; +FURO40TA6 PO; +INSU100C5 SQ-INSULIN; +INSU100I13 SQ-INSULIN; +INSU100V13 SQ; +LACT1CAP20 PO; -LIDOCAINE-MPF 1%, 5ML ONE; +LISI5TAB7 PO; +LISINOPRIL PO; +METF500T17 PO; +METO25TA35 PO; +METO25TA91 PO; +NITR0.4T28 SL; +ONDA4TAB7 PO; +PANT40TA3 PO; +PANT40TA5 PO; +SPIR25TA PO; +TICA90TA PO
--- NOTE | 2018-12-11 18:26 | NUR ---
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
--- NOTE | 2018-12-11 18:46 | NUR ---
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 THEREFORE CHARTED NOT WITH HX OF MRSA
[2018-12-11 18:47] LABS: INTERNATIONAL NORMALIZED RATIO 1.02 (0.93-1.1); PROTHROMBIN TIME 10.7 Seconds (9.6-11.5)
[2018-12-11 18:48] LABS: ALANINE AMINOTRANSFERASE 30 U/L (12-78); ALBUMIN 3.3 g/dL (3.4-5.0); ANION GAP 8 mmol/L (5-15); CALCIUM 8.7 mg/dL (8.5-10.1); CHLORIDE 107 mmol/L (98-107); CREATININE 1.04 mg/dL (0.55-1.02)
--- NOTE | 2018-12-11 18:50 | NUR ---
NO NITRO TABS IN OMNICELL-ORDERED FROM PHARMACY
[2018-12-11 18:52] LABS: ALKALINE PHOSPHATASE 79 U/L (45-117); BASOPHILS # (AUTO) 0.02 x10^3/uL (0-0.1); BASOPHILS % (AUTO) 0 % (0-1); BILIRUBIN,TOTAL 0.4 mg/dL (0.2-1.0); EOSINOPHILS # (AUTO) 0.21 x10^3/uL (0-0.4); EOSINOPHILS % (AUTO) 4 % (1-7); LYMPHOCYTES # (AUTO) 1.17 x10^3/uL (1-3.4); LYMPHOCYTES % (AUTO) 22 % (22-44); MD NO; MEAN CORPUSCULAR HEMOGLOBIN 26.9 pg (27.0-34.8); MEAN CORPUSCULAR HGB CONC 32.3 g/dL (32.4-35.8); MEAN CORPUSCULAR VOLUME 83.5 fL (80-100); MEAN PLATELET VOLUME 7.1 fL (7.4-10.4); MONOCYTES # (AUTO) 0.53 x10^3/uL (0.2-0.8); MONOCYTES % (AUTO) 10 % (2-9); NEUTROPHILS # (AUTO) 3.39 x10^3/uL (1.8-6.8); NEUTROPHILS % (AUTO) 64 % (42-75); PLATELET COUNT 277 x10^3/uL (130-400); RED BLOOD COUNT 4.44 x10^6/uL (3.82-5.3); RED CELL DISTRIBUTION WIDTH 17.7 % (9.6-15.2); TOTAL PROTEIN 7.4 g/dL (6.4-8.2); TROPONIN I < 0.015 ng/mL (0.000-0.045)
[2018-12-11] MEDS ORDERED: NITROGLYCERIN SINGLE TAB 0.4 MG SL ONE ×3 (18:53→19:26)
[2018-12-11] MEDS ORDERED: NITROGLYCERIN OINT 2%, 1GM TP ONE (18:54)
[2018-12-11] MEDS ORDERED: MORPHINE SULFATE 4 MG/ML, 1ML ONE (18:54)
[2018-12-11] MEDS ORDERED: MORPHINE SULFATE 4 MG/ML, 1ML IVPush ONE (19:00)
[2018-12-11] MEDS ORDERED: PLEASE ENTER HEIGHT AND WEIGHT MC SCH (19:00)
[2018-12-11] MEDS ORDERED: HEPARIN 25,000 UNITS/500ML PMX 500 ML IV PRN (19:00)
[2018-12-11] MEDS ORDERED: HEPARIN 5,000 UNITS/ML, 1ML IV ONE (19:00)
[2018-12-11] MEDS ORDERED: HEPARIN 5,000 UNITS/ML, 1ML IV PRN (19:00)
--- NOTE | 2018-12-11 19:00 | NUR ---
REPEAT ECG OBTAINED OBTAINED CHEST PAIN WORSENED
--- NOTE | 2018-12-11 19:07 | NUR ---
REPORTS CURRENT UTI- ON UNKNOWN ABX
--- NOTE | 2018-12-11 19:17 | NUR ---
CHEST PAIN COMPLETELY IMPROVED POST MORPHINE ADMIN VSS ON FITTER HAND TO COMPLETE MED RECC SHORTLY
[2018-12-11] MEDS ORDERED: HEPARIN 25,000 UNITS/500ML PMX 500 ML ONE (19:27)
[2018-12-11] MEDS ORDERED: HEPARIN 5,000 UNITS/ML, 1ML ONE (19:27)
--- NOTE | 2018-12-11 19:38 | NUR ---
UP TO STANDING SCALE FOR ACCURATE WEIGHT (FOR HEPARIN GTT)
--- NOTE | 2018-12-11 20:37 | NUR ---
HEPARIN ADMINISTERED PER PROTOCOL
--- NOTE | 2018-12-11 20:45 | NUR ---
6 HOUR ANTI-XA ORDERED FOR 0230 12/12/18 RIGHT FOREARM 20GA PLACED (SECOND PIV)
[2018-12-11] MEDS ORDERED: INSU100V8 SQ (20:47)
[2018-12-11] MEDS ORDERED: FAMO20TA7 PO (21:02)
[2018-12-11] MEDS ORDERED: ASPI-496 PO (21:02)
[2018-12-11] MEDS ORDERED: POTA20TA14 PO (21:02)
[2018-12-11] MEDS ORDERED: CIPR500T87 PO (21:02)
--- NOTE | 2018-12-11 21:07 | NUR ---
MED RECC COMPLETED (MOSTLY) LIMITED BY PATIENT'S KNOWLEDGE AND INCOMPLETE/MULTIPLE DUPLICATES ON RECORDS PROVIDED BY [facility] MED RECC DETAILS: NEED NIGHT DOSE OF METROPROLOL (12.5), NEEDS NIGHT LANTUS (35) MAYBE NEED NIGHT DOSE OF CIPRO (HAS UTI). TRANSFER TO ROOM 517 BY EMT AT 2102 RECORDS TUBED TO STATION 151 AT 2109
[2018-12-11 22:08] VITALS: BP 107/57
[2018-12-11] MEDS ORDERED: TEMAZEPAM 15 MG CAPSULE PO PRN (22:30)
[2018-12-11] MEDS ORDERED: NITROGLYCERIN 0.4 MG BOTTLE (25 TABS) SL PRN (22:30)
[2018-12-11] MEDS ORDERED: BISACODYL 10 MG SUPP PR PRN (22:30)
[2018-12-11] MEDS ORDERED: LIDODERM 5% PATCH TD PRN (22:30)
[2018-12-11] MEDS ORDERED: ONDANSETRON 2MG/ML, 2ML IVPush PRN (22:30)
[2018-12-11] MEDS: ISOSORBIDE MONONITRATE ER 30 MG TABLET PO SCH (23:23)
[2018-12-11] MEDS: INSULIN GLARGINE 100 UNITS/ML, PEN SQ-INSULIN SCH (23:28)
[2018-12-11] MEDS: INSULIN LISPRO 100 UNITS/ML, PEN SQ-INSULIN SCH (23:36)
[2018-12-12] MEDS: SIMETHICONE 125 MG CHEW TAB PO SCH ×5 (00:43→20:43)
[2018-12-12 00:58] LABS: TROPONIN I 0.325 ng/mL (0.000-0.045)
[2018-12-12 02:00] VITALS: BP 113/72
[2018-12-12 05:49] LABS: BASOPHILS # (AUTO) 0.06 x10^3/uL (0-0.1); BASOPHILS % (AUTO) 1 % (0-1); EOSINOPHILS # (AUTO) 0.29 x10^3/uL (0-0.4); EOSINOPHILS % (AUTO) 6 % (1-7); LYMPHOCYTES # (AUTO) 1.53 x10^3/uL (1-3.4); LYMPHOCYTES % (AUTO) 32 % (22-44); MD NO; MEAN CORPUSCULAR HEMOGLOBIN 26.8 pg (27.0-34.8); MEAN CORPUSCULAR HGB CONC 32.2 g/dL (32.4-35.8); MEAN CORPUSCULAR VOLUME 83.2 fL (80-100); MEAN PLATELET VOLUME 7.1 fL (7.4-10.4); MONOCYTES # (AUTO) 0.55 x10^3/uL (0.2-0.8); MONOCYTES % (AUTO) 11 % (2-9); NEUTROPHILS # (AUTO) 2.41 x10^3/uL (1.8-6.8); NEUTROPHILS % (AUTO) 50 % (42-75); PLATELET COUNT 241 x10^3/uL (130-400); RED BLOOD COUNT 4.19 x10^6/uL (3.82-5.3); RED CELL DISTRIBUTION WIDTH 17.4 % (9.6-15.2)
[2018-12-12] MEDS: METOPROLOL SUCCINATE 25 MG TAB.ER.24H PO SCH (05:52)
[2018-12-12 05:53] LABS: ANION GAP 8 mmol/L (5-15); CALCIUM 8.5 mg/dL (8.5-10.1); CHLORIDE 108 mmol/L (98-107)
[2018-12-12 05:57] LABS: TROPONIN I 0.334 ng/mL (0.000-0.045)
[2018-12-12 06:44] VITALS: BP 101/65
[2018-12-12] MEDS: INSULIN LISPRO 100 UNITS/ML, PEN SQ-INSULIN SCH ×4 (07:00→20:58)
[2018-12-12] MEDS: DOCUSATE 100 MG CAPSULE PO SCH ×2 (08:45→20:42)
[2018-12-12] MEDS ORDERED: FAMOTIDINE 20 MG TABLET PO SCH ×2 (09:00→11:00)
[2018-12-12] MEDS: FUROSEMIDE 80 MG TABLET PO SCH (10:55)
[2018-12-12] MEDS: CLOPIDOGREL 75 MG TABLET PO SCH (10:55)
[2018-12-12] MEDS: INSULIN GLARGINE 100 UNITS/ML, PEN SQ-INSULIN SCH ×2 (11:00→21:00)
[2018-12-12 12:32] VITALS: BP 106/68
[2018-12-12] MEDS: DIPHENHYDRAMINE 50 MG CAPSULE PO SCH ×2 (14:21→21:41)
[2018-12-12] MEDS ORDERED: TICAGRELOR 90 MG TABLET ONE (15:09)
[2018-12-12] MEDS ORDERED: FENTANYL PF 100 MCG/2ML ONE (15:09)
[2018-12-12] MEDS ORDERED: MIDAZOLAM 1 MG/ML, 5ML ONE (15:09)
[2018-12-12] MEDS ORDERED: VERAPAMIL 2.5 MG/ML, 2ML ONE (15:10)
[2018-12-12] MEDS ORDERED: LIDOCAINE-MPF 1%, 5ML ONE (15:10)
[2018-12-12] MEDS ORDERED: BIVALIRUDIN 250 MG ONE (15:10)
[2018-12-12] MEDS ORDERED: FUROSEMIDE 40 MG/4 ML ONE (16:54)
[2018-12-12] MEDS ORDERED: FUROSEMIDE 40 MG/4 ML IV ONE ×2 (17:00→21:00)
[2018-12-12] MEDS: POTASSIUM CHLORIDE 20 MEQ TAB.ER.PRT PO SCH (17:02)
[2018-12-12] MEDS: ISOSORBIDE MONONITRATE ER 30 MG TABLET PO SCH ×2 (17:02→20:44)
[2018-12-12] MEDS: ASPIRIN 81 MG TABLET EC PO SCH (17:02)
[2018-12-12] MEDS: LISINOPRIL 5 MG TABLET PO SCH (17:03)
[2018-12-12 19:31] VITALS: BP 88/54
[2018-12-13 01:07] VITALS: BP 89/53
[2018-12-13 03:00] VITALS: BP 117/78
[2018-12-13 04:48] LABS: ANION GAP 10 mmol/L (5-15); CALCIUM 8.4 mg/dL (8.5-10.1); CHLORIDE 105 mmol/L (98-107)
[2018-12-13 04:49] LABS: CREATININE 1.39 mg/dL (0.55-1.02)
[2018-12-13 06:33] VITALS: BP 98/62
[2018-12-13] MEDS: SIMETHICONE 125 MG CHEW TAB PO SCH ×4 (06:40→21:46)
[2018-12-13] MEDS: INSULIN LISPRO 100 UNITS/ML, PEN SQ-INSULIN SCH ×4 (06:41→20:30)
[2018-12-13] MEDS: METOPROLOL SUCCINATE 25 MG TAB.ER.24H PO SCH (07:16)
[2018-12-13] MEDS ORDERED: INSULIN LISPRO 100 UNIT/ML, 3ML VIAL SQ-INSULIN ONE (08:30)
[2018-12-13 08:36] VITALS: BP 107/62
[2018-12-13] MEDS: POTASSIUM CHLORIDE 20 MEQ TAB.ER.PRT PO SCH (08:38)
[2018-12-13] MEDS: INSULIN GLARGINE 100 UNITS/ML, PEN SQ-INSULIN SCH ×2 (08:38→20:29)
[2018-12-13] MEDS: ISOSORBIDE MONONITRATE ER 30 MG TABLET PO SCH ×2 (08:38→20:27)
[2018-12-13] MEDS: FUROSEMIDE 80 MG TABLET PO SCH (08:39)
[2018-12-13] MEDS: FAMOTIDINE 20 MG TABLET PO SCH (08:39)
[2018-12-13] MEDS: ASPIRIN 81 MG TABLET EC PO SCH (08:41)
[2018-12-13] MEDS: CLOPIDOGREL 75 MG TABLET PO SCH (08:42)
[2018-12-13] MEDS: DOCUSATE 100 MG CAPSULE PO SCH ×2 (08:42→20:26)
[2018-12-13] MEDS: LISINOPRIL 5 MG TABLET PO SCH (09:00)
[2018-12-13] MEDS ORDERED: SODIUM CHLORIDE 0.9% 1,000 ML IV SCH (10:00)
[2018-12-13] MEDS: HEPARIN 5,000 UNITS/ML, 1ML SQ SCH ×2 (11:43→20:28)
[2018-12-13 12:10] VITALS: BP 95/58
[2018-12-13 14:09] LABS: ANION GAP 11 mmol/L (5-15); CALCIUM 8.5 mg/dL (8.5-10.1); CHLORIDE 103 mmol/L (98-107); CREATININE 1.33 mg/dL (0.55-1.02)
[2018-12-13 18:53] VITALS: BP 99/63
[2018-12-14 01:48] VITALS: BP 105/66
[2018-12-14 05:02] LABS: BASOPHILS # (AUTO) 0.08 x10^3/uL (0-0.1); BASOPHILS % (AUTO) 1 % (0-1); EOSINOPHILS % (AUTO) 2 % (1-7); LYMPHOCYTES % (AUTO) 28 % (22-44); MD NO; MEAN CORPUSCULAR HEMOGLOBIN 26.4 pg (27.0-34.8); MEAN CORPUSCULAR HGB CONC 31.6 g/dL (32.4-35.8); MEAN CORPUSCULAR VOLUME 83.4 fL (80-100); MEAN PLATELET VOLUME 7.3 fL (7.4-10.4); MONOCYTES # (AUTO) 0.72 x10^3/uL (0.2-0.8); MONOCYTES % (AUTO) 11 % (2-9); NEUTROPHILS # (AUTO) 3.77 x10^3/uL (1.8-6.8); NEUTROPHILS % (AUTO) 58 % (42-75); PLATELET COUNT 272 x10^3/uL (130-400); RED BLOOD COUNT 4.21 x10^6/uL (3.82-5.3); RED CELL DISTRIBUTION WIDTH 17.4 % (9.6-15.2)
[2018-12-14 05:06] LABS: ANION GAP 7 mmol/L (5-15); CALCIUM 8.6 mg/dL (8.5-10.1); CHLORIDE 108 mmol/L (98-107)
[2018-12-14 05:08] LABS: CREATININE 1.05 mg/dL (0.55-1.02)
[2018-12-14] MEDS: HEPARIN 5,000 UNITS/ML, 1ML SQ SCH ×3 (05:25→20:17)
[2018-12-14] MEDS: METOPROLOL SUCCINATE 25 MG TAB.ER.24H PO SCH (05:26)
[2018-12-14 06:32] VITALS: BP 100/65
[2018-12-14] MEDS: INSULIN LISPRO 100 UNITS/ML, PEN SQ-INSULIN SCH ×4 (07:39→20:20)
[2018-12-14 08:00] VITALS: BP 109/71
[2018-12-14] MEDS: SIMETHICONE 125 MG CHEW TAB PO SCH ×4 (08:23→20:20)
[2018-12-14] MEDS: SPIRONOLACTONE 25 MG TABLET PO SCH (08:23)
[2018-12-14] MEDS: FAMOTIDINE 20 MG TABLET PO SCH (08:24)
[2018-12-14] MEDS: ASPIRIN 81 MG TABLET EC PO SCH (08:24)
[2018-12-14] MEDS: DOCUSATE 100 MG CAPSULE PO SCH ×2 (08:24→20:17)
[2018-12-14] MEDS: POTASSIUM CHLORIDE 20 MEQ TAB.ER.PRT PO SCH (08:24)
[2018-12-14] MEDS: ISOSORBIDE MONONITRATE ER 30 MG TABLET PO SCH ×3 (08:24→22:16)
[2018-12-14] MEDS: CLOPIDOGREL 75 MG TABLET PO SCH (08:24)
[2018-12-14] MEDS: LISINOPRIL 5 MG TABLET PO SCH (08:25)
[2018-12-14] MEDS: INSULIN GLARGINE 100 UNITS/ML, PEN SQ-INSULIN SCH ×2 (08:30→20:19)
[2018-12-14] MEDS ORDERED: FUROSEMIDE 20 MG TABLET PO SCH (11:00)
[2018-12-14] MEDS: FUROSEMIDE 40 MG TABLET PO SCH (12:31)
[2018-12-14 13:27] VITALS: BP 92/44
[2018-12-14] MEDS: ACETAMINOPHEN 325 MG TABLET PO PRN (16:30)
[2018-12-14 18:41] VITALS: BP 87/56
[2018-12-14 22:17] VITALS: BP 118/75
[2018-12-15] VITALS (7 sets, daily range): BP systolic 88–119; BP diastolic 48–70
[2018-12-15 05:01] LABS: ANION GAP 7 mmol/L (5-15); CALCIUM 8.4 mg/dL (8.5-10.1); CHLORIDE 108 mmol/L (98-107)
[2018-12-15] MEDS: HEPARIN 5,000 UNITS/ML, 1ML SQ SCH (05:02)
[2018-12-15] MEDS: METOPROLOL SUCCINATE 25 MG TAB.ER.24H PO SCH (05:02)
[2018-12-15] MEDS: ACETAMINOPHEN 325 MG TABLET PO PRN ×2 (06:45→20:22)
[2018-12-15] MEDS: INSULIN LISPRO 100 UNITS/ML, PEN SQ-INSULIN SCH ×4 (07:16→20:46)
[2018-12-15] MEDS: CLOPIDOGREL 75 MG TABLET PO SCH (07:33)
[2018-12-15] MEDS: ASPIRIN 81 MG TABLET EC PO SCH (07:33)
[2018-12-15] MEDS: SIMETHICONE 125 MG CHEW TAB PO SCH ×4 (07:33→20:42)
[2018-12-15] MEDS: POTASSIUM CHLORIDE 20 MEQ TAB.ER.PRT PO SCH (07:33)
[2018-12-15] MEDS: LISINOPRIL 5 MG TABLET PO SCH (07:34)
[2018-12-15] MEDS: SPIRONOLACTONE 25 MG TABLET PO SCH (07:34)
[2018-12-15] MEDS: FUROSEMIDE 40 MG TABLET PO SCH (07:34)
[2018-12-15] MEDS: DOCUSATE 100 MG CAPSULE PO SCH ×2 (07:34→20:42)
[2018-12-15] MEDS: INSULIN GLARGINE 100 UNITS/ML, PEN SQ-INSULIN SCH ×2 (07:39→20:49)
[2018-12-15] MEDS: ISOSORBIDE MONONITRATE ER 30 MG TABLET PO SCH ×2 (07:40→20:45)
[2018-12-15] MEDS: FAMOTIDINE 20 MG TABLET PO SCH (08:00)
[2018-12-15] MEDS ORDERED: VANCOMYCIN PMX 1GM/200ML 200 ML IVPB SCH (11:00)
[2018-12-15] MEDS ORDERED: LIDOCAINE 2%, 20ML ONE (14:15)
[2018-12-15] MEDS ORDERED: CEFAZOLIN PMX 1GM/50ML 0 ML ONE (14:15)
[2018-12-15] MEDS ORDERED: CEFAZOLIN 1,000 MG ONE (14:15)
[2018-12-15] MEDS ORDERED: DIPHENHYDRAMINE 50 MG/ML, 1ML ONE (14:19)
[2018-12-15] MEDS ORDERED: methylPREDNISolone SOD SUCC 125 MG/2 ML ONE (14:19)
[2018-12-15] MEDS ORDERED: VANCOMYCIN PMX 1GM/200ML 200 ML ONE (14:31)
[2018-12-15] MEDS ORDERED: VANCOMYCIN 500 MG ONE (14:31)
[2018-12-15] MEDS ORDERED: MIDAZOLAM 1 MG/ML, 2ML ONE (14:35)
[2018-12-15] MEDS ORDERED: FENTANYL PF 250 MCG/5ML ONE (14:35)
[2018-12-15] MEDS ORDERED: PROPOFOL 50 ML ONE (14:35)
[2018-12-15] MEDS ORDERED: ONDANSETRON 2MG/ML, 2ML ONE (15:03)
[2018-12-15] MEDS ORDERED: DEXAMETHASONE 4 MG/ML, 1ML ONE (15:03)
[2018-12-15] MEDS ORDERED: VASOPRESSIN 20 UNIT/ML, 1ML ONE (15:48)
[2018-12-15] MEDS ORDERED: PROMETHAZINE 25 MG/ML, 1ML IV PRN (16:30)
[2018-12-15] MEDS ORDERED: FENTANYL PF 100 MCG/2ML IV PRN (16:30)
[2018-12-15] MEDS ORDERED: DIAZEPAM 5 MG/ML, 2ML IVPush PRN (16:30)
[2018-12-15] MEDS ORDERED: ONDANSETRON ODT 8 MG PO PRN (16:30)
[2018-12-15] MEDS ORDERED: HOLD MEDICATION MC PRN (16:30)
[2018-12-15] MEDS ORDERED: HYDROmorphone 2 MG/ML, 1ML IVPush PRN (16:30)
[2018-12-15] MEDS ORDERED: OXYcodone 5 MG/5 ML ORAL.SOL UDC PO PRN (16:30)
[2018-12-15] MEDS ORDERED: EPHEDRINE 50 MG/ML, 1ML IVPush PRN (16:30)
[2018-12-15] MEDS ORDERED: ONDANSETRON 2MG/ML, 2ML IV PRN (16:30)
[2018-12-15] MEDS ORDERED: EPHEDRINE 50 MG/ML, 1ML IM PRN (16:30)
[2018-12-15] MEDS ORDERED: MIDAZOLAM 1 MG/ML, 2ML IV PRN (16:30)
[2018-12-15] MEDS ORDERED: DIPHENHYDRAMINE 50 MG/ML, 1ML IVPush PRN (16:30)
[2018-12-15] MEDS ORDERED: ACETAMINOPHEN 325 MG TABLET PO PRN ×2 (16:30)
[2018-12-15] MEDS ORDERED: ACETAMINOPHEN 650 MG/20.3 ML UDC ONE (17:02)
[2018-12-15] MEDS: SODIUM CHLORIDE FLUSH 10ML SYR IVF SCH (20:45)
[2018-12-15] MEDS ORDERED: VANCOMYCIN PMX 1GM/200ML 200 ML IVPB ONE (23:00)
[2018-12-16 01:06] VITALS: BP 97/60
[2018-12-16] MEDS: morphine SULFATE 10 MG/ML, 1ML IVPush PRN ×2 (02:08→13:59)
[2018-12-16] MEDS: ACETAMINOPHEN 325 MG TABLET PO PRN ×2 (03:22→08:11)
[2018-12-16 05:51] LABS: ANION GAP 6 mmol/L (5-15); CHLORIDE 104 mmol/L (98-107)
[2018-12-16 05:54] LABS: CREATININE 1.07 mg/dL (0.55-1.02)
[2018-12-16] MEDS: METOPROLOL SUCCINATE 25 MG TAB.ER.24H PO SCH (06:00)
[2018-12-16 06:17] VITALS: BP 91/58
[2018-12-16 06:50] VITALS: BP 92/60
[2018-12-16 08:45] VITALS: BP 102/51
[2018-12-16] MEDS: ASPIRIN 81 MG TABLET EC PO SCH (08:45)
[2018-12-16] MEDS: INSULIN LISPRO 100 UNITS/ML, PEN SQ-INSULIN SCH ×4 (08:45→20:33)
[2018-12-16] MEDS: INSULIN GLARGINE 100 UNITS/ML, PEN SQ-INSULIN SCH ×2 (08:45→20:34)
[2018-12-16] MEDS: ISOSORBIDE MONONITRATE ER 30 MG TABLET PO SCH ×2 (08:45→20:32)
[2018-12-16] MEDS: POTASSIUM CHLORIDE 20 MEQ TAB.ER.PRT PO SCH (08:46)
[2018-12-16] MEDS: FUROSEMIDE 40 MG TABLET PO SCH (08:46)
[2018-12-16] MEDS: SIMETHICONE 125 MG CHEW TAB PO SCH ×4 (08:46→20:32)
[2018-12-16] MEDS: SPIRONOLACTONE 25 MG TABLET PO SCH (08:46)
[2018-12-16] MEDS: CLOPIDOGREL 75 MG TABLET PO SCH (08:46)
[2018-12-16] MEDS: DOCUSATE 100 MG CAPSULE PO SCH ×2 (08:46→20:32)
[2018-12-16] MEDS: FAMOTIDINE 20 MG TABLET PO SCH (08:46)
[2018-12-16] MEDS: SODIUM CHLORIDE FLUSH 10ML SYR IVF SCH ×2 (08:47→20:40)
[2018-12-16] MEDS: LISINOPRIL 5 MG TABLET PO SCH (11:30)
[2018-12-16 13:30] VITALS: BP 93/57
[2018-12-16 20:10] VITALS: BP 99/64
[2018-12-17 01:49] VITALS: BP 100/66
[2018-12-17] MEDS: INSULIN LISPRO 100 UNITS/ML, PEN SQ-INSULIN SCH ×2 (07:00→11:00)
[2018-12-17 07:41] VITALS: BP 102/59
[2018-12-17] MEDS: METOPROLOL SUCCINATE 25 MG TAB.ER.24H PO SCH (07:49)
[2018-12-17] MEDS: SIMETHICONE 125 MG CHEW TAB PO SCH ×2 (08:10→11:27)
[2018-12-17] MEDS: ASPIRIN 81 MG TABLET EC PO SCH (09:00)
[2018-12-17] MEDS: FAMOTIDINE 20 MG TABLET PO SCH (09:00)
[2018-12-17] MEDS: ISOSORBIDE MONONITRATE ER 30 MG TABLET PO SCH (09:00)
[2018-12-17] MEDS: FUROSEMIDE 40 MG TABLET PO SCH (09:00)
[2018-12-17] MEDS: LISINOPRIL 5 MG TABLET PO SCH (09:00)
[2018-12-17] MEDS: CLOPIDOGREL 75 MG TABLET PO SCH (09:00)
[2018-12-17] MEDS: SPIRONOLACTONE 25 MG TABLET PO SCH (09:00)
[2018-12-17] MEDS: POTASSIUM CHLORIDE 20 MEQ TAB.ER.PRT PO SCH (09:00)
[2018-12-17] MEDS: DOCUSATE 100 MG CAPSULE PO SCH (09:00)
[2018-12-17] MEDS: SODIUM CHLORIDE FLUSH 10ML SYR IVF SCH (09:00)
[2018-12-17] MEDS ORDERED: SPIR25TA PO (09:23)
[2018-12-17] MEDS ORDERED: FURO40TA6 PO (09:23)
[2018-12-17] MEDS: INSULIN GLARGINE 100 UNITS/ML, PEN SQ-INSULIN SCH (09:27)
[2018-12-17 12:51] VITALS: BP 116/63
[2018-12-17] MEDS ORDERED: TRAM50TA2 PO (14:29)
== END 2018-12-17 15:24 | DRG 242 ==
LOC: ED 18:21 → EDIP 19:06 → 5SO 21:08
PROVIDERS: ADMIT Internal Medicine; ATTEND Internal Medicine
PROC: 4A023N7 Measurement of Cardiac Sampling and Pressure, Left Heart, Percutaneous Approach (ICD-10-PCS; 2018-12-12)
PROC: B211YZZ Fluoroscopy of Multiple Coronary Arteries using Other Contrast (ICD-10-PCS; 2018-12-12)
PROC: B215YZZ Fluoroscopy of Left Heart using Other Contrast (ICD-10-PCS; 2018-12-12)
PROC: 02H43JZ Insertion of Pacemaker Lead into Coronary Vein, Percutaneous Approach (ICD-10-PCS; 2018-12-12)
PROC: 02HL3JZ Insertion of Pacemaker Lead into Left Ventricle, Percutaneous Approach (ICD-10-PCS; 2018-12-15)
PROC: 02HK3JZ Insertion of Pacemaker Lead into Right Ventricle, Percutaneous Approach (ICD-10-PCS; 2018-12-15)
PROC: 0JH607Z Insertion of Cardiac Resynchronization Pacemaker Pulse Generator into Chest Subcutaneous Tissue and Fascia, Open Approach (ICD-10-PCS; principal; 2018-12-15 16:00)
DX: I25.110 Atherosclerotic heart disease of native coronary artery with unstable angina pectoris (principal); R53.2 Functional quadriplegia; I13.0 Hypertensive heart and chronic kidney disease with heart failure and stage 1 through stage 4 chronic kidney disease, or unspecified chronic kidney disease; I50.22 Chronic systolic (congestive) heart failure; N17.9 Acute kidney failure, unspecified; I44.7 Left bundle-branch block, unspecified; I42.9 Cardiomyopathy, unspecified; E11.22 Type 2 diabetes mellitus with diabetic chronic kidney disease; E11.51 Type 2 diabetes mellitus with diabetic peripheral angiopathy without gangrene; E11.65 Type 2 diabetes mellitus with hyperglycemia; E78.5 Hyperlipidemia, unspecified; I25.5 Ischemic cardiomyopathy; I27.20 Pulmonary hypertension, unspecified; I48.91 Unspecified atrial fibrillation; I71.2 Thoracic aortic aneurysm, without rupture; N18.2 Chronic kidney disease, stage 2 (mild); Z66 Do not resuscitate; Z79.02 Long term (current) use of antithrombotics/antiplatelets; Z79.4 Long term (current) use of insulin; Z86.718 Personal history of other venous thrombosis and embolism; Z87.891 Personal history of nicotine dependence; I25.2 Old myocardial infarction; Z89.512 Acquired absence of left leg below knee; Z90.710 Acquired absence of both cervix and uterus; Z95.5 Presence of coronary angioplasty implant and graft; Z88.8 Allergy status to other drugs, medicaments and biological substances; Z91.041 Radiographic dye allergy status
CPT/HCPCS: 33208; 33225; 36415; 71045; 80048; 80053; 82962; 83880; 84484; 85025; 85520; 85610; 93005; 93458; 96374; 96375; 99156; 99157; C1760; C1769; C1779; C1887; C1892; C1894; C2621; G0378; J0583; J0690; J1100; J1644; J1940; J2250; J2405; J2704; J3010; J3370; C1900; J1200; J1815; J2270; J2930; J7030; J7512; Q9967

== ENCOUNTER 2018-12-26 03:45 | Emergency (ER) | payer MEDICARE, MEDICAID ==
[~2018-12-26] VITALS: Ht 162.6 cm; Wt 96.8 kg
[~2018-12-26 03:45] MED LIST changes: +ASPI-496 PO; +CIPR500T87 PO; +FAMO20TA7 PO; +POTA20TA14 PO; +TRAM50TA2 PO
--- NOTE | 2018-12-26 04:03 | NUR ---
JOLLY LANGLEY FROM [facility]. PT RECENTLY HAD PACEMAKER PLACED. PT WITH C/O CP THAT STARTED AT AROUND 0215 THIS MORNING THAT WOKE HER FROM SLEEP. PAIN RELIEVED WITH NITRO GIVEN BY KORIN. DENIES PAIN AT THIS TIME. DENIES N/V. NO ACUTE DISTRESS. PT ATTACED TO ALL MONITORS. CALL LIGHT WITHIN REACH.
[2018-12-26 04:39] LABS: BASOPHILS % (AUTO) 1 % (0-1); EOSINOPHILS # (AUTO) 0.35 x10^3/uL (0-0.4); EOSINOPHILS % (AUTO) 5 % (1-7); LYMPHOCYTES # (AUTO) 1.53 x10^3/uL (1-3.4); LYMPHOCYTES % (AUTO) 22 % (22-44); MD NO; MEAN CORPUSCULAR HGB CONC 31.8 g/dL (32.4-35.8); MEAN PLATELET VOLUME 6.7 fL (7.4-10.4); MONOCYTES # (AUTO) 0.59 x10^3/uL (0.2-0.8); MONOCYTES % (AUTO) 9 % (2-9); NEUTROPHILS % (AUTO) 63 % (42-75); PLATELET COUNT 376 x10^3/uL (130-400); RED BLOOD COUNT 4.13 x10^6/uL (3.82-5.3); RED CELL DISTRIBUTION WIDTH 17.5 % (9.6-15.2)
[2018-12-26 04:47] LABS: ALANINE AMINOTRANSFERASE 25 U/L (12-78); ALBUMIN 3.1 g/dL (3.4-5.0); ANION GAP 7 mmol/L (5-15); CALCIUM 8.8 mg/dL (8.5-10.1); CHLORIDE 107 mmol/L (98-107); CREATININE 1.02 mg/dL (0.55-1.02)
[2018-12-26 04:51] LABS: ALKALINE PHOSPHATASE 66 U/L (45-117); BILIRUBIN,TOTAL 0.5 mg/dL (0.2-1.0); TOTAL PROTEIN 6.7 g/dL (6.4-8.2); TROPONIN I < 0.015 ng/mL (0.000-0.045)
--- NOTE | 2018-12-26 05:31 | NUR ---
PER ER MD MULTANI, REPEAT TROPS AT 0630 AND THEN RE-EVAL DISPO
--- NOTE | 2018-12-26 06:35 | NUR ---
PT RESTING ON SEAN. PILLOW PROVIDED PER REQUEST. PT UPDATED ON POC.
--- NOTE | 2018-12-26 07:02 | NUR ---
REPORT TO DALI JONES
[2018-12-26 07:08] LABS: TROPONIN I < 0.015 ng/mL (0.000-0.045)
--- NOTE | 2018-12-26 07:10 | NUR ---
REPORT RECEIVED FROM DALI EUGENE. PLAN OF CARE DISCUSSED. AWAITING SECOND TROP RESULTS.
--- NOTE | 2018-12-26 09:05 | NUR ---
PT DISCHARGED. CALLED [facility] UNABLE TO PROVIDE TRANSPORTATION AFTER 1100, CALLED SN[facility], WILL SEND VAN AFTER 1100. MEAL ORDERED
[2018-12-26 09:15] VITALS: BP 121/53
--- NOTE | 2018-12-26 09:24 | NUR ---
PATIENT PROVIDED WITH JUICE FOR LOW BLOOD SUGAR AT 65. NEEDS ADDRESSED.
--- NOTE | 2018-12-26 10:15 | NUR ---
PATIENT DEMANDING MORNING MEDICATIONS AND VERBALIZING "I HAVE CRITICAL HEALTH RPOBLEMS". DISCUSSED WITH PATIENT THAT SHE HAS BEEN DISCHARGED AND WE ARE AWAITING HER TRANSPORT TO GET TO ED AT 1230. PATIENT REQUESTED RN SPEAK WITH ONE OF THE MDs. RN DISCUSSED WITH MD PATIENT DEMANDS, MD UNCONCERNED WITH DELIVERING MORNING MEDICATIONS AT THIS TIME. PATIENT HAS ALREADY BEEN DISCHARGED, AWAITING TRANSPORT.
--- NOTE | 2018-12-26 10:26 | NUR ---
REPORT GIVEN TO DALI ELIAS AT [facility]. PLAN OF CARE DISCUSSED. DALI ELIAS VERFIED THAT IT IS OKAY FOR PATIENT TO WAIT UNTIL SHE GETS TO [place] TO TAKE HER MORNING MEDICATIONS.
--- NOTE | 2018-12-26 10:53 | NUR ---
PATIENT PROVIDED WITH MEAL TRAY, PATIENT STATES "I'M NOT EATING THAT, I'M TOO FRUSTRATED". LEFT MEAL IN ROOM AT BEDSIDE IN CASE PATIENT WANTS TO EAT.
--- NOTE | 2018-12-26 11:46 | NUR ---
PATIENT TALKING ON PHONE, RESTING ON GURNEY, NEEDS ADDRESSED, VSS. CALL LIGHT IN REACH.
--- NOTE | 2018-12-26 11:58 | NUR ---
ASSISTED PATIENT IN GETTING HER CLOTHES ON, DISCONNECGTED FROM MONITOR, IV REMOVED. AWAITING TRANSPORTATION.
--- NOTE | 2018-12-26 12:12 | NUR ---
PATIENT PROVIDED WITH LUNCH, EATING IN BED. NEEDS ADDRESSED.
== END 2018-12-26 13:07 | disposition home or self-care (01) ==
LOC: ED 07:38
DX: R07.89 Other chest pain (principal); R00.2 Palpitations; I48.92 Unspecified atrial flutter; I12.9 Hypertensive chronic kidney disease with stage 1 through stage 4 chronic kidney disease, or unspecified chronic kidney disease; N18.2 Chronic kidney disease, stage 2 (mild); I25.10 Atherosclerotic heart disease of native coronary artery without angina pectoris; I25.2 Old myocardial infarction; E78.5 Hyperlipidemia, unspecified; Z86.718 Personal history of other venous thrombosis and embolism; Z87.891 Personal history of nicotine dependence; Z98.61 Coronary angioplasty status
CPT/HCPCS: 36415; 71045; 80053; 82962; 83880; 84484; 85025; 93005; 99284

== ENCOUNTER 2019-03-22 13:45 | Inpatient (IN) | payer MEDICAID, MEDICARE ==
[~2019-03-22] VITALS: Ht 162.6 cm; Wt 92.8 kg
--- NOTE | 2019-03-22 14:12 | NUR ---
mckenna in room to eval pt aware of hypoten. as
[2019-03-22] MEDS ORDERED: FENTANYL PF 100 MCG/2ML ONE (14:28)
[2019-03-22] MEDS ORDERED: FENTANYL PF 100 MCG/2ML IV ONE (14:30)
[2019-03-22 14:40] LABS: BASOPHILS # (AUTO) 0.02 x10^3/uL (0-0.1); BASOPHILS % (AUTO) 0 % (0-1); EOSINOPHILS # (AUTO) 0.56 x10^3/uL (0-0.4); EOSINOPHILS % (AUTO) 11 % (1-7); LYMPHOCYTES # (AUTO) 1.25 x10^3/uL (1-3.4); LYMPHOCYTES % (AUTO) 24 % (22-44); MD NO; MEAN CORPUSCULAR HGB CONC 31.4 g/dL (32.4-35.8); MEAN CORPUSCULAR VOLUME 76.5 fL (80-100); MEAN PLATELET VOLUME 6.1 fL (7.4-10.4); MONOCYTES # (AUTO) 0.43 x10^3/uL (0.2-0.8); MONOCYTES % (AUTO) 8 % (2-9); NEUTROPHILS % (AUTO) 57 % (42-75); PLATELET COUNT 348 x10^3/uL (130-400); RED CELL DISTRIBUTION WIDTH 19.3 % (9.6-15.2)
[2019-03-22 14:50] LABS: INTERNATIONAL NORMALIZED RATIO 0.97 (0.93-1.1); PROTHROMBIN TIME 10.3 Seconds (9.6-11.5)
[2019-03-22 14:53] LABS: ALANINE AMINOTRANSFERASE 19 U/L (12-78); ALBUMIN 2.8 g/dL (3.4-5.0); ANION GAP 8 mmol/L (5-15); CALCIUM 8.3 mg/dL (8.5-10.1); CHLORIDE 111 mmol/L (98-107); CREATININE 1.36 mg/dL (0.55-1.02)
[2019-03-22 14:56] LABS: ALKALINE PHOSPHATASE 65 U/L (45-117); BILIRUBIN,TOTAL 0.2 mg/dL (0.2-1.0); TOTAL PROTEIN 6.5 g/dL (6.4-8.2)
[2019-03-22] MEDS ORDERED: SODIUM CHLORIDE 0.9%, 500ML IVBOLUS ONE (15:00)
--- NOTE | 2019-03-22 15:03 | NUR ---
late entry: piv est labs drawn and sent straight cathed for ua. placed on waffle mattress. optifoam to wounds. 500 cc bolus infusing. pt sts ef of 25%. md aware. wounds: 2 wounds on buttocks. red/blanchable breakdown on coccyx. optifoam placed. 3 small pressure wounds to back of L bka. optifoam placed. md aware and has seen wounds. yellow slough as wound bed, minimal serous drainage. as
[2019-03-22 15:21] LABS: CULTURE INDICATED? YES; MICROSCOPIC INDICATED
[2019-03-22] MEDS ORDERED: CIPROFLOXACIN/PMX 400MG/200ML 200 ML IV ONE (15:30)
[2019-03-22] MEDS ORDERED: DIPHENHYDRAMINE 50 MG/ML, 1ML IVPush ONE (15:30)
[2019-03-22] MEDS ORDERED: DIPHENHYDRAMINE 50 MG/ML, 1ML ONE (15:38)
[2019-03-22] MEDS ORDERED: CIPROFLOXACIN/PMX 400MG/200ML 200 ML ONE (15:39)
--- NOTE | 2019-03-22 16:00 | NUR ---
MEDS PER APR, ABX FOR UTI. GRANT IN ROOM FOR REEVAL.
--- NOTE | 2019-03-22 16:28 | NUR ---
PT TO BE ADMITTED, AWARE AND AGREES.
--- NOTE | 2019-03-22 16:54 | NUR ---
ATTEMPT X1 TO CALL REPORT.
--- NOTE | 2019-03-22 17:09 | NUR ---
ATTEMPT X3 TO CALL REPORT.
--- NOTE | 2019-03-22 17:21 | NUR ---
FIONA BARRIOS RN. ADMITTING MD IN ROOM FOR DALI RICHEY CHAPERONED, TURNED TO SEE WOUNDS.
--- NOTE | 2019-03-22 17:45 | NUR ---
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
[2019-03-22 17:59] VITALS: BP 92/57
[2019-03-22] MEDS ORDERED: TEMAZEPAM 15 MG CAPSULE PO PRN (18:00)
[2019-03-22] MEDS ORDERED: BACLOFEN 10 MG TABLET PO PRN (18:00)
[2019-03-22] MEDS ORDERED: LACTATED RINGERS 1,000 ML IV SCH (18:00)
[2019-03-22] MEDS ORDERED: hydrALAzine 20 MG/ML, 1ML IVPush PRN (18:00)
[2019-03-22] MEDS ORDERED: ONDANSETRON ODT 4 MG PO PRN (18:00)
[2019-03-22] MEDS ORDERED: NITROGLYCERIN SINGLE TAB 0.4 MG SL PRN (18:00)
[2019-03-22] MEDS ORDERED: POLYETHYLENE GLYCOL 17 GM PACKET PO PRN (18:00)
[2019-03-22] MEDS ORDERED: LABETALOL 5MG/ML, 20ML IVPush PRN (18:00)
[2019-03-22] MEDS ORDERED: ONDANSETRON 2MG/ML, 2ML IVPush PRN (18:00)
[2019-03-22 18:10] VITALS: BP 97/58
[2019-03-22] MEDS: HEPARIN 5,000 UNITS/ML, 1ML SQ SCH (20:00)
[2019-03-22] MEDS: AMPICILLIN/SULBACTAM 3 GM in SODIUM CHLORIDE 0.9% 100 ML IV SCH (20:49)
[2019-03-22] MEDS: DOCUSATE 100 MG CAPSULE PO SCH (21:00)
[2019-03-22] MEDS: CHOLECALCIFEROL 400 UNITS TABLET PO SCH (21:01)
[2019-03-22] MEDS: ASCORBIC ACID 500 MG TABLET PO SCH (21:01)
[2019-03-22] MEDS: ISOSORBIDE MONONITRATE ER 30 MG TABLET PO SCH (21:02)
[2019-03-22] MEDS: FAMOTIDINE 20 MG TABLET PO SCH (21:05)
[2019-03-22] MEDS: OXYcodone IR 5MG TABLET PO PRN (21:08)
[2019-03-22] MEDS: INSULIN GLARGINE 100 UNITS/ML, PEN SQ-INSULIN SCH (21:13)
[2019-03-22] MEDS: INSULIN LISPRO 100 UNITS/ML, PEN SQ-INSULIN SCH (21:15)
[2019-03-22] MEDS: MULTIVITS,STRESS FORMULA 1 TABLET PO SCH (21:24)
[2019-03-23] MEDS: GABAPENTIN 300 MG CAPSULE PO PRN (03:47)
[2019-03-23] MEDS: HEPARIN 5,000 UNITS/ML, 1ML SQ SCH ×3 (03:47→21:05)
[2019-03-23] MEDS: OXYcodone IR 5MG TABLET PO PRN (03:48)
[2019-03-23 03:56] VITALS: BP 111/64
[2019-03-23] MEDS: ACETAMINOPHEN 325 MG TABLET PO PRN ×2 (03:56→22:45)
[2019-03-23] MEDS: AMPICILLIN/SULBACTAM 3 GM in SODIUM CHLORIDE 0.9% 100 ML IV SCH ×3 (04:40→21:06)
[2019-03-23] MEDS: GUAIFENESIN/DM 200-20MG, 10ML UDC PO PRN ×2 (04:40→21:14)
[2019-03-23 05:42] LABS: BASOPHILS # (AUTO) 0.01 x10^3/uL (0-0.1); BASOPHILS % (AUTO) 0 % (0-1); EOSINOPHILS # (AUTO) 0.44 x10^3/uL (0-0.4); EOSINOPHILS % (AUTO) 12 % (1-7); LYMPHOCYTES # (AUTO) 1.11 x10^3/uL (1-3.4); LYMPHOCYTES % (AUTO) 29 % (22-44); MD NO; MEAN CORPUSCULAR HEMOGLOBIN 24.7 pg (27.0-34.8); MEAN CORPUSCULAR HGB CONC 32.1 g/dL (32.4-35.8); MEAN CORPUSCULAR VOLUME 76.8 fL (80-100); MEAN PLATELET VOLUME 6.5 fL (7.4-10.4); MONOCYTES % (AUTO) 11 % (2-9); NEUTROPHILS # (AUTO) 1.88 x10^3/uL (1.8-6.8); NEUTROPHILS % (AUTO) 49 % (42-75); PLATELET COUNT 286 x10^3/uL (130-400); RED BLOOD COUNT 3.68 x10^6/uL (3.82-5.3); RED CELL DISTRIBUTION WIDTH 19.2 % (9.6-15.2)
[2019-03-23 05:46] LABS: ALBUMIN 2.4 g/dL (3.4-5.0); ANION GAP 8 mmol/L (5-15); CHLORIDE 115 mmol/L (98-107)
[2019-03-23 05:49] LABS: ALANINE AMINOTRANSFERASE 14 U/L (12-78); ALKALINE PHOSPHATASE 55 U/L (45-117); BILIRUBIN,TOTAL 0.3 mg/dL (0.2-1.0); TOTAL PROTEIN 5.7 g/dL (6.4-8.2)
[2019-03-23 05:54] VITALS: BP 95/59
[2019-03-23] MEDS: METOPROLOL SUCCINATE 25 MG TAB.ER.24H PO SCH (05:55)
[2019-03-23] MEDS: INSULIN LISPRO 100 UNITS/ML, PEN SQ-INSULIN SCH ×4 (05:59→21:36)
[2019-03-23] MEDS ORDERED: DIPHENHYDRAMINE 25 MG CAPSULE PO PRN (06:00)
[2019-03-23 07:24] VITALS: BP 94/62
[2019-03-23] MEDS: CLOPIDOGREL 75 MG TABLET PO SCH (08:44)
[2019-03-23] MEDS: MUPIROCIN OINT 2%, 22GM TP SCH ×3 (08:44→21:00)
[2019-03-23] MEDS: CALCIUM GLUCONATE 4.6 MEQ in SODIUM CHLORIDE 0.9% 100 ML IV SCH ×2 (08:44→22:45)
[2019-03-23] MEDS: ASPIRIN 81 MG TABLET EC PO SCH (08:44)
[2019-03-23] MEDS: LISINOPRIL 5 MG TABLET PO SCH (08:45)
[2019-03-23] MEDS: MULTIVITS,STRESS FORMULA 1 TABLET PO SCH (08:45)
[2019-03-23] MEDS: SPIRONOLACTONE 25 MG TABLET PO SCH (08:45)
[2019-03-23] MEDS: ISOSORBIDE MONONITRATE ER 30 MG TABLET PO SCH ×2 (08:45→21:06)
[2019-03-23] MEDS: FAMOTIDINE 20 MG TABLET PO SCH ×2 (08:46→21:06)
[2019-03-23] MEDS: POTASSIUM CHLORIDE 20 MEQ TAB.ER.PRT PO SCH (08:46)
[2019-03-23] MEDS: FUROSEMIDE 40 MG TABLET PO SCH (08:47)
[2019-03-23] MEDS: DOCUSATE 100 MG CAPSULE PO SCH ×2 (08:47→21:06)
[2019-03-23] MEDS: ASCORBIC ACID 500 MG TABLET PO SCH ×2 (08:49→16:10)
[2019-03-23 08:50] VITALS: BP 107/68
[2019-03-23] MEDS ORDERED: MUPIROCIN OINT 2%, 1 GM APPL. TP SCH (09:00)
[2019-03-23 14:32] VITALS: BP 95/64
[2019-03-23] MEDS: CHOLECALCIFEROL 400 UNITS TABLET PO SCH (16:10)
[2019-03-23 19:13] VITALS: BP 110/68
[2019-03-23] MEDS: INSULIN GLARGINE 100 UNITS/ML, PEN SQ-INSULIN SCH (21:37)
[2019-03-23] MEDS ORDERED: SIMETHICONE 80 MG CHEW TAB PO PRN (22:30)
[2019-03-24 00:09] VITALS: BP 87/57
[2019-03-24] MEDS: GUAIFENESIN/DM 200-20MG, 10ML UDC PO PRN (04:09)
[2019-03-24] MEDS: HEPARIN 5,000 UNITS/ML, 1ML SQ SCH ×3 (04:50→20:19)
[2019-03-24] MEDS: METOPROLOL SUCCINATE 25 MG TAB.ER.24H PO SCH (04:50)
[2019-03-24] MEDS: AMPICILLIN/SULBACTAM 3 GM in SODIUM CHLORIDE 0.9% 100 ML IV SCH ×3 (04:51→20:32)
[2019-03-24 05:58] LABS: ALBUMIN 2.5 g/dL (3.4-5.0); ANION GAP 9 mmol/L (5-15); CALCIUM 8.3 mg/dL (8.5-10.1); CHLORIDE 112 mmol/L (98-107); CREATININE 1.21 mg/dL (0.55-1.02)
[2019-03-24 06:00] LABS: BASOPHILS # (AUTO) 0.03 x10^3/uL (0-0.1); BASOPHILS % (AUTO) 1 % (0-1); EOSINOPHILS # (AUTO) 0.55 x10^3/uL (0-0.4); EOSINOPHILS % (AUTO) 10 % (1-7); LYMPHOCYTES % (AUTO) 23 % (22-44); MD NO; MEAN CORPUSCULAR HEMOGLOBIN 24.8 pg (27.0-34.8); MEAN CORPUSCULAR HGB CONC 32.3 g/dL (32.4-35.8); MEAN CORPUSCULAR VOLUME 76.8 fL (80-100); MEAN PLATELET VOLUME 6.8 fL (7.4-10.4); MONOCYTES # (AUTO) 0.62 x10^3/uL (0.2-0.8); MONOCYTES % (AUTO) 11 % (2-9); NEUTROPHILS # (AUTO) 3.06 x10^3/uL (1.8-6.8); NEUTROPHILS % (AUTO) 55 % (42-75); PLATELET COUNT 308 x10^3/uL (130-400); RED BLOOD COUNT 3.81 x10^6/uL (3.82-5.3); RED CELL DISTRIBUTION WIDTH 19.6 % (9.6-15.2)
[2019-03-24] MEDS: ACETAMINOPHEN 325 MG TABLET PO PRN (06:01)
[2019-03-24] MEDS: INSULIN LISPRO 100 UNITS/ML, PEN SQ-INSULIN SCH ×4 (07:00→20:23)
[2019-03-24 07:23] VITALS: BP 100/51
[2019-03-24] MEDS: POTASSIUM CHLORIDE 20 MEQ TAB.ER.PRT PO SCH (07:54)
[2019-03-24] MEDS: ASPIRIN 81 MG TABLET EC PO SCH (07:54)
[2019-03-24] MEDS: CLOPIDOGREL 75 MG TABLET PO SCH (07:54)
[2019-03-24] MEDS: SPIRONOLACTONE 25 MG TABLET PO SCH (07:54)
[2019-03-24] MEDS: ISOSORBIDE MONONITRATE ER 30 MG TABLET PO SCH ×2 (07:54→20:17)
[2019-03-24] MEDS: MULTIVITS,STRESS FORMULA 1 TABLET PO SCH (07:54)
[2019-03-24] MEDS: DOCUSATE 100 MG CAPSULE PO SCH ×2 (07:54→20:27)
[2019-03-24] MEDS: LISINOPRIL 5 MG TABLET PO SCH (07:54)
[2019-03-24] MEDS: ASCORBIC ACID 500 MG TABLET PO SCH ×2 (07:54→16:42)
[2019-03-24] MEDS: FAMOTIDINE 20 MG TABLET PO SCH ×2 (07:55→20:17)
[2019-03-24] MEDS: FUROSEMIDE 40 MG TABLET PO SCH (07:55)
[2019-03-24] MEDS: MUPIROCIN OINT 2%, 22GM TP SCH ×3 (07:57→20:25)
[2019-03-24] MEDS ORDERED: CALCIUM GLUCONATE 4.6 MEQ in SODIUM CHLORIDE 0.9% 100 ML IV ONE (08:00)
[2019-03-24] MEDS: CALCIUM GLUCONATE 4.6 MEQ in SODIUM CHLORIDE 0.9% 100 ML IV SCH ×2 (10:35→21:22)
[2019-03-24 13:44] VITALS: BP 90/54
[2019-03-24] MEDS: CHOLECALCIFEROL 400 UNITS TABLET PO SCH (16:42)
[2019-03-24 19:43] VITALS: BP 100/64
[2019-03-24] MEDS: INSULIN GLARGINE 100 UNITS/ML, PEN SQ-INSULIN SCH (20:25)
[2019-03-24] MEDS: TRAZODONE 100MG TABLET PO PRN (21:22)
[2019-03-24] MEDS: DIPHENHYDRAMINE/ZINC CRM 2%, 30GM TP PRN (21:42)
[2019-03-25 03:00] VITALS: BP 97/61
[2019-03-25] MEDS: ACETAMINOPHEN 325 MG TABLET PO PRN ×2 (04:28→16:24)
[2019-03-25] MEDS: HEPARIN 5,000 UNITS/ML, 1ML SQ SCH ×3 (04:29→20:22)
[2019-03-25] MEDS: AMPICILLIN/SULBACTAM 3 GM in SODIUM CHLORIDE 0.9% 100 ML IV SCH ×3 (04:30→21:18)
[2019-03-25 05:24] VITALS: BP 91/58
[2019-03-25] MEDS: DIPHENHYDRAMINE/ZINC CRM 2%, 30GM TP PRN ×2 (05:30→09:48)
[2019-03-25] MEDS: METOPROLOL SUCCINATE 25 MG TAB.ER.24H PO SCH (05:47)
[2019-03-25 06:06] LABS: BASOPHILS # (AUTO) 0.02 x10^3/uL (0-0.1); BASOPHILS % (AUTO) 1 % (0-1); EOSINOPHILS # (AUTO) 0.66 x10^3/uL (0-0.4); EOSINOPHILS % (AUTO) 13 % (1-7); LYMPHOCYTES # (AUTO) 1.05 x10^3/uL (1-3.4); LYMPHOCYTES % (AUTO) 21 % (22-44); MD NO; MEAN CORPUSCULAR HEMOGLOBIN 24.5 pg (27.0-34.8); MEAN CORPUSCULAR VOLUME 76.4 fL (80-100); MEAN PLATELET VOLUME 6.7 fL (7.4-10.4); MONOCYTES # (AUTO) 0.57 x10^3/uL (0.2-0.8); MONOCYTES % (AUTO) 11 % (2-9); NEUTROPHILS % (AUTO) 54 % (42-75); PLATELET COUNT 333 x10^3/uL (130-400); RED BLOOD COUNT 4.04 x10^6/uL (3.82-5.3); RED CELL DISTRIBUTION WIDTH 19.8 % (9.6-15.2)
[2019-03-25 06:18] LABS: ALBUMIN 2.6 g/dL (3.4-5.0); ANION GAP 10 mmol/L (5-15); CALCIUM 8.7 mg/dL (8.5-10.1); CHLORIDE 111 mmol/L (98-107)
[2019-03-25 06:20] LABS: CREATININE 1.15 mg/dL (0.55-1.02)
[2019-03-25] MEDS: INSULIN LISPRO 100 UNITS/ML, PEN SQ-INSULIN SCH ×4 (07:00→21:19)
[2019-03-25 08:36] VITALS: BP 98/62
[2019-03-25] MEDS: ISOSORBIDE MONONITRATE ER 30 MG TABLET PO SCH ×2 (09:00→21:18)
[2019-03-25] MEDS: SPIRONOLACTONE 25 MG TABLET PO SCH (09:00)
[2019-03-25] MEDS: LISINOPRIL 5 MG TABLET PO SCH (09:00)
[2019-03-25] MEDS: FUROSEMIDE 40 MG TABLET PO SCH (09:00)
[2019-03-25] MEDS: CIPROFLOXACIN/PMX 400MG/200ML 200 ML IV SCH ×2 (09:21→20:23)
[2019-03-25] MEDS: DOCUSATE 100 MG CAPSULE PO SCH ×2 (09:22→21:18)
[2019-03-25] MEDS: ASCORBIC ACID 500 MG TABLET PO SCH ×2 (09:22→16:12)
[2019-03-25] MEDS: ASPIRIN 81 MG TABLET EC PO SCH (09:23)
[2019-03-25] MEDS: POTASSIUM CHLORIDE 20 MEQ TAB.ER.PRT PO SCH (09:23)
[2019-03-25] MEDS: FAMOTIDINE 20 MG TABLET PO SCH ×2 (09:24→21:18)
[2019-03-25] MEDS: MULTIVITS,STRESS FORMULA 1 TABLET PO SCH (09:24)
[2019-03-25] MEDS: CLOPIDOGREL 75 MG TABLET PO SCH (09:24)
[2019-03-25] MEDS: MUPIROCIN OINT 2%, 22GM TP SCH ×3 (09:43→21:20)
[2019-03-25 12:56] VITALS: BP 93/61
[2019-03-25] MEDS: CHOLECALCIFEROL 400 UNITS TABLET PO SCH (16:12)
[2019-03-25 18:51] VITALS: BP 109/66
[2019-03-25] MEDS: TRAZODONE 100MG TABLET PO PRN (21:18)
[2019-03-25] MEDS: INSULIN GLARGINE 100 UNITS/ML, PEN SQ-INSULIN SCH (21:20)
[2019-03-26 03:50] VITALS: BP 100/61
[2019-03-26] MEDS: HEPARIN 5,000 UNITS/ML, 1ML SQ SCH ×3 (03:57→21:19)
[2019-03-26] MEDS: GABAPENTIN 300 MG CAPSULE PO PRN (03:57)
[2019-03-26] MEDS: ACETAMINOPHEN 325 MG TABLET PO PRN ×2 (04:51→17:07)
[2019-03-26] MEDS: AMPICILLIN/SULBACTAM 3 GM in SODIUM CHLORIDE 0.9% 100 ML IV SCH ×3 (04:51→21:17)
[2019-03-26] MEDS: METOPROLOL SUCCINATE 25 MG TAB.ER.24H PO SCH (06:00)
[2019-03-26 06:15] VITALS: BP 94/59
[2019-03-26] MEDS: INSULIN LISPRO 100 UNITS/ML, PEN SQ-INSULIN SCH ×4 (07:00→21:18)
[2019-03-26] MEDS: CIPROFLOXACIN/PMX 400MG/200ML 200 ML IV SCH ×2 (07:39→19:47)
[2019-03-26] MEDS ORDERED: CIPR500T87 PO (07:56)
[2019-03-26] MEDS ORDERED: CHOL400T2 PO (07:56)
[2019-03-26] MEDS ORDERED: ASCO500T6 PO (07:56)
[2019-03-26] MEDS ORDERED: MUPI22OI2 TP (07:56)
[2019-03-26] MEDS: LISINOPRIL 5 MG TABLET PO SCH (09:00)
[2019-03-26] MEDS: SPIRONOLACTONE 25 MG TABLET PO SCH (09:00)
[2019-03-26] MEDS: FUROSEMIDE 40 MG TABLET PO SCH (09:00)
[2019-03-26 09:57] VITALS: BP 94/61
[2019-03-26] MEDS: ASPIRIN 81 MG TABLET EC PO SCH (10:02)
[2019-03-26] MEDS: POTASSIUM CHLORIDE 20 MEQ TAB.ER.PRT PO SCH (10:02)
[2019-03-26] MEDS: DOCUSATE 100 MG CAPSULE PO SCH ×2 (10:02→21:17)
[2019-03-26] MEDS: ISOSORBIDE MONONITRATE ER 30 MG TABLET PO SCH ×2 (10:04→21:17)
[2019-03-26] MEDS: FAMOTIDINE 20 MG TABLET PO SCH ×2 (10:04→21:17)
[2019-03-26] MEDS: ASCORBIC ACID 500 MG TABLET PO SCH ×2 (10:05→16:54)
[2019-03-26] MEDS: CLOPIDOGREL 75 MG TABLET PO SCH (10:05)
[2019-03-26] MEDS: MUPIROCIN OINT 2%, 22GM TP SCH ×3 (10:44→21:19)
[2019-03-26] MEDS: MULTIVITS,STRESS FORMULA 1 TABLET PO SCH (10:44)
[2019-03-26 13:55] VITALS: BP 103/63
[2019-03-26] MEDS: CHOLECALCIFEROL 400 UNITS TABLET PO SCH (16:54)
[2019-03-26 19:06] VITALS: BP 93/57
[2019-03-26] MEDS: INSULIN GLARGINE 100 UNITS/ML, PEN SQ-INSULIN SCH (21:18)
[2019-03-27 00:52] VITALS: BP 99/61
[2019-03-27] MEDS: AMPICILLIN/SULBACTAM 3 GM in SODIUM CHLORIDE 0.9% 100 ML IV SCH ×2 (04:54→13:30)
[2019-03-27] MEDS: HEPARIN 5,000 UNITS/ML, 1ML SQ SCH ×2 (04:55→12:35)
[2019-03-27 04:58] VITALS: BP 95/59
[2019-03-27] MEDS: ACETAMINOPHEN 325 MG TABLET PO PRN (05:05)
[2019-03-27] MEDS: METOPROLOL SUCCINATE 25 MG TAB.ER.24H PO SCH (06:00)
[2019-03-27] MEDS: INSULIN LISPRO 100 UNITS/ML, PEN SQ-INSULIN SCH ×3 (07:00→16:00)
[2019-03-27 08:48] VITALS: BP 96/58
[2019-03-27] MEDS: MULTIVITS,STRESS FORMULA 1 TABLET PO SCH (08:53)
[2019-03-27] MEDS: CIPROFLOXACIN/PMX 400MG/200ML 200 ML IV SCH (08:53)
[2019-03-27] MEDS: DOCUSATE 100 MG CAPSULE PO SCH (08:53)
[2019-03-27] MEDS: POTASSIUM CHLORIDE 20 MEQ TAB.ER.PRT PO SCH (08:53)
[2019-03-27] MEDS: ASPIRIN 81 MG TABLET EC PO SCH (08:53)
[2019-03-27] MEDS: CLOPIDOGREL 75 MG TABLET PO SCH (08:53)
[2019-03-27] MEDS: FAMOTIDINE 20 MG TABLET PO SCH (08:54)
[2019-03-27] MEDS: ISOSORBIDE MONONITRATE ER 30 MG TABLET PO SCH (08:54)
[2019-03-27] MEDS: FUROSEMIDE 40 MG TABLET PO SCH (09:00)
[2019-03-27] MEDS: LISINOPRIL 5 MG TABLET PO SCH (09:00)
[2019-03-27] MEDS: SPIRONOLACTONE 25 MG TABLET PO SCH (09:00)
[2019-03-27] MEDS: MUPIROCIN OINT 2%, 22GM TP SCH ×2 (09:00→16:00)
[2019-03-27] MEDS: ASCORBIC ACID 500 MG TABLET PO SCH ×2 (12:35→16:39)
[2019-03-27 13:55] VITALS: BP 106/64
[2019-03-27] MEDS ORDERED: DIPH28.44 TP (14:00)
[2019-03-27] MEDS: CHOLECALCIFEROL 400 UNITS TABLET PO SCH (16:39)
== END 2019-03-27 17:00 | DRG 871 ==
LOC: ED 15:25 → EDIP 17:01 → 4NE 17:48 → 3N 03-23 23:47
PROVIDERS: ADMIT Internal Medicine; ATTEND Family Medicine
PROC: 0T9B70Z Drainage of Bladder with Drainage Device, Via Natural or Artificial Opening (ICD-10-PCS; principal; 2019-03-22)
DX: A41.9 Sepsis, unspecified organism (principal); R53.2 Functional quadriplegia; N17.0 Acute kidney failure with tubular necrosis; E46 Unspecified protein-calorie malnutrition; E87.2 Acidosis; N39.0 Urinary tract infection, site not specified; Z16.11 Resistance to penicillins; D50.9 Iron deficiency anemia, unspecified; E11.22 Type 2 diabetes mellitus with diabetic chronic kidney disease; Z68.35 Body mass index [BMI] 35.0-35.9, adult; E11.51 Type 2 diabetes mellitus with diabetic peripheral angiopathy without gangrene; E86.0 Dehydration; E83.51 Hypocalcemia; I27.20 Pulmonary hypertension, unspecified; I25.10 Atherosclerotic heart disease of native coronary artery without angina pectoris; I50.9 Heart failure, unspecified; I48.91 Unspecified atrial fibrillation; L23.9 Allergic contact dermatitis, unspecified cause; L89.90 Pressure ulcer of unspecified site, unspecified stage; N18.9 Chronic kidney disease, unspecified; Z79.4 Long term (current) use of insulin; Z85.42 Personal history of malignant neoplasm of other parts of uterus; Z88.1 Allergy status to other antibiotic agents; Z89.511 Acquired absence of right leg below knee; Z89.512 Acquired absence of left leg below knee; Z90.710 Acquired absence of both cervix and uterus; Z95.0 Presence of cardiac pacemaker; Z95.5 Presence of coronary angioplasty implant and graft; Z91.041 Radiographic dye allergy status; Z88.8 Allergy status to other drugs, medicaments and biological substances
CPT/HCPCS: 36415; 71045; 80053; 80069; 81001; 82962; 83605; 83735; 84100; 84145; 85025; 85610; 85730; 87040; 87077; 87086; 87186; 93005; 96365; 99285; G0378; J0295; J0610; J0744; J1644; J1200; J1815; J7040; J7120; Q0163

== ENCOUNTER 2019-08-25 08:36 | Inpatient (IN) | payer MEDICARE, MEDICAID ==
[~2019-08-25] VITALS: Ht 162.6 cm; Wt 80.1 kg
[~2019-08-25 08:36] MED LIST changes: +ASCO500T9 PO; +CHOL400T2 PO; +DIPH28.44 TP; +MUPI22OI2 TP
--- NOTE | 2019-08-25 09:08 | NUR ---
ALLI BANUELOS, DAUGHTER, , WOULD LIKE TO BE KEPT INFORMED OF PATIENT'S STATUS.
[2019-08-25 09:17] LABS: ANION GAP 6 mmol/L (5-15); CALCIUM 8.7 mg/dL (8.5-10.1); CHLORIDE 114 mmol/L (98-107); CREATININE 1.23 mg/dL (0.55-1.02)
[2019-08-25 09:21] LABS: MEAN CORPUSCULAR VOLUME 69.9 fL (80-100); MEAN PLATELET VOLUME 6.9 fL (7.4-10.4); PLATELET COUNT 331 x10^3/uL (130-400); RED BLOOD COUNT 5.55 x10^6/uL (3.82-5.3); RED CELL DISTRIBUTION WIDTH 21.5 % (9.6-15.2)
[2019-08-25] MEDS ORDERED: SODIUM CHLORIDE 0.9% 1,000ML IVBOLUS ONE ×2 (09:30→10:00)
[2019-08-25 10:00] LABS: MD YES
[2019-08-25] MEDS ORDERED: LEVOFLOXACIN/PMX 750MG/150ML 150 ML IVPB ONE (10:00)
[2019-08-25 10:02] LABS: BAND#(MANUAL) 0.06 x10^3/uL; BANDS%(MANUAL) 1 % (0-7); BASOS#(MANUAL) 0.06 x10^3/uL (0-0.1); BASOS% (MANUAL) 1 % (0-1); EOS#(MANUAL) 0.06 x10^3/uL (0.0-0.4); EOS% (MANUAL) 1 % (1-7); LYMPH#(MANUAL) 0.54 x10^3/uL (1-3.4); LYMPHS% (MANUAL) 9 % (22-44); MONOS#(MANUAL) 0.42 x10^3/uL (0.3-2.7); MONOS% (MANUAL) 7 % (2-9); SEG#(MANUAL) 4.86 x10^3/uL (1.8-6.8); SEGS% (MANUAL) 81 % (42-75)
[2019-08-25 10:03] LABS: ANISOCYTOSIS 2+; HYPOCHROMIA 2+; MICROCYTOSIS 2+; OVALOCYTES 2+
[2019-08-25 10:04] LABS: POLYCHROMASIA 1+
[2019-08-25 10:05] LABS: <PLATELET ESTIMATE> ADEQUATE; <PLT MORPHOLOGY> NORMAL PLT MORPH
[2019-08-25] MEDS ORDERED: LEVOFLOXACIN/PMX 750MG/150ML 150 ML ONE (10:11)
--- NOTE | 2019-08-25 10:34 | NUR ---
REPORT RECEIVED FROM MAE MCNALLY
--- NOTE | 2019-08-25 10:41 | NUR ---
EDUARDO ALMAZAN PERFORMED AND SAMPLE WALKED TO LAB.
--- NOTE | 2019-08-25 10:45 | NUR ---
CALLED [facility] TO GET MED REC. NO ONE ANSWERED THE PHONE
[2019-08-25 10:51] LABS: MICROSCOPIC INDICATED
[2019-08-25] MEDS ORDERED: ATOR-2 PO (11:38)
[2019-08-25] MEDS ORDERED: TEMPLATE NON-FORMULARY MED. (Insulin Aspart** (Novolog**) 0 UNITS) SQ-INSULIN SCH (11:54)
[2019-08-25] MEDS ORDERED: GUAIFENESIN/DM 200-20MG, 10ML UDC PO PRN (12:00)
[2019-08-25] MEDS ORDERED: DIPHENHYDRAMINE/ZINC CRM 2%, 30GM TP PRN (12:00)
[2019-08-25] MEDS ORDERED: CALAMINE LOTION 180ML TP PRN (12:00)
[2019-08-25] MEDS ORDERED: LACTATED RINGERS 1,000 ML IV ONE (12:00)
[2019-08-25] MEDS ORDERED: ONDANSETRON 2MG/ML, 2ML IVPush PRN (12:00)
[2019-08-25] MEDS ORDERED: BUTALB/APAP/CAFFEINE 50MG/325MG/40MG PO PRN (12:00)
[2019-08-25] MEDS ORDERED: hydrALAzine 20 MG/ML, 1ML IVPush PRN (12:00)
[2019-08-25] MEDS ORDERED: NITROGLYCERIN SINGLE TAB 0.4 MG SL PRN (12:00)
[2019-08-25] MEDS ORDERED: LABETALOL 5MG/ML, 20ML IVPush PRN (12:00)
[2019-08-25] MEDS ORDERED: ONDANSETRON ODT 4 MG PO PRN (12:00)
--- NOTE | 2019-08-25 12:03 | NUR ---
PT RESTING IN [facility]. ON HOLD IN THE ED. CLEANED PT. THERE IS REDNESS AND AN AREA PAINFUL TO THE TOUCH ON THE SACRAM
--- NOTE | 2019-08-25 12:26 | NUR ---
PT REMAINING HYPOTENSIVE AFTER FLUID BOLUS. MD NOTIFIED. SEE MAR FOR INTERVENTIONS
--- NOTE | 2019-08-25 12:42 | NUR ---
PT IS A0X4. MOVES ALL EXTREMITIES. DENIES DIZZNIESS OR ANY OTHER SYMPTOMS. IS IN BED WATCHING TV AND ON CELL PHONE
--- NOTE | 2019-08-25 14:08 | NUR ---
SPOKE WITH MD ONCE AGAIN ABOUT PT BP AND HOW THE PT HAS YET TO URINATE. MD GAVE THE VERBAL ORDER TO RUN LR A BOLUS
[2019-08-25] MEDS ORDERED: LACTATED RINGERS 1,000 ML IVBOLUS ONE (15:00)
[2019-08-25 15:08] VITALS: BP 110/43
[2019-08-25] MEDS ORDERED: ALBUTEROL HFA 90 MCG/SPRAY INH PRN (15:30)
[2019-08-25] MEDS ORDERED: ASCORBIC ACID 500 MG TABLET ONE (16:21)
[2019-08-25] MEDS ORDERED: ENOXAPARIN 40 MG/0.4 ML ONE (16:21)
[2019-08-25] MEDS ORDERED: metFORMIN 500 MG TABLET ONE (16:21)
[2019-08-25] MEDS ORDERED: CHOLECALCIFEROL 400 UNITS TABLET ONE (16:21)
[2019-08-25] MEDS: CHOLECALCIFEROL 400 UNITS TABLET PO SCH (16:29)
[2019-08-25] MEDS: INSULIN LISPRO 100 UNITS/ML, PEN LOW DOSE SS SQ-INSULIN SCH ×2 (16:29→20:44)
[2019-08-25] MEDS: metFORMIN 500 MG TABLET PO SCH (16:29)
[2019-08-25] MEDS: ASCORBIC ACID 500 MG TABLET PO SCH (16:29)
[2019-08-25] MEDS: ENOXAPARIN 40 MG/0.4 ML SQ SCH (16:30)
[2019-08-25] MEDS: MUPIROCIN OINT 2%, 22GM TP SCH ×3 (17:31→20:45)
[2019-08-25 17:58] VITALS: BP 96/35
[2019-08-25 18:20] VITALS: BP 93/41
[2019-08-25 18:58] VITALS: BP 96/61
[2019-08-25] MEDS: FAMOTIDINE 10 MG TAB PO SCH (20:37)
[2019-08-25] MEDS: ISOSORBIDE MONONITRATE ER 30 MG TABLET PO SCH (20:37)
[2019-08-25] MEDS: ATORVASTATIN 20 MG TABLET PO SCH (20:37)
[2019-08-25] MEDS: MELATONIN 5 MG TABLET PO PRN (22:52)
[2019-08-26 00:04] VITALS: BP 93/45
[2019-08-26] MEDS: GABAPENTIN 300 MG CAPSULE PO PRN ×2 (03:23→12:00)
[2019-08-26] MEDS: METOPROLOL SUCCINATE 25 MG TAB.ER.24H PO SCH (05:16)
[2019-08-26 06:04] LABS: MEAN CORPUSCULAR HEMOGLOBIN 21.6 pg (27.0-34.8); MEAN CORPUSCULAR HGB CONC 30.7 g/dL (32.4-35.8); MEAN CORPUSCULAR VOLUME 70.6 fL (80-100); MEAN PLATELET VOLUME 7.4 fL (7.4-10.4); PLATELET COUNT 298 x10^3/uL (130-400); RED BLOOD COUNT 5.18 x10^6/uL (3.82-5.3); RED CELL DISTRIBUTION WIDTH 21.7 % (9.6-15.2)
[2019-08-26 06:36] LABS: MD YES
[2019-08-26 06:38] LABS: <PLATELET ESTIMATE> ADEQUATE; <PLT MORPHOLOGY> NORMAL PLT MORPH; ANISOCYTOSIS 2+; BASOS#(MANUAL) 0.05 x10^3/uL (0-0.1); BASOS% (MANUAL) 1 % (0-1); EOS% (MANUAL) 2 % (1-7); HYPOCHROMIA 2+; LYMPH#(MANUAL) 1.03 x10^3/uL (1-3.4); LYMPHS% (MANUAL) 21 % (22-44); MICROCYTOSIS 2+; MONOS% (MANUAL) 4 % (2-9); OVALOCYTES 1+; POLYCHROMASIA 1+; SEG#(MANUAL) 3.53 x10^3/uL (1.8-6.8); SEGS% (MANUAL) 72 % (42-75)
[2019-08-26 06:50] VITALS: BP 102/51
[2019-08-26] MEDS ORDERED: methylPREDNISolone SOD SUCC 40 MG/ML ONE (08:16)
[2019-08-26] MEDS: metFORMIN 500 MG TABLET PO SCH ×2 (08:37→16:36)
[2019-08-26] MEDS: INSULIN LISPRO 100 UNITS/ML, PEN LOW DOSE SS SQ-INSULIN SCH ×4 (08:37→21:00)
[2019-08-26] MEDS: FAMOTIDINE 10 MG TAB PO SCH ×2 (08:37→21:00)
[2019-08-26] MEDS: ASCORBIC ACID 500 MG TABLET PO SCH ×2 (08:37→16:36)
[2019-08-26] MEDS: SENNA/DOCUSATE TABLET PO SCH (08:39)
[2019-08-26] MEDS: CLOPIDOGREL 75 MG TABLET PO SCH (08:39)
[2019-08-26] MEDS: POTASSIUM CHLORIDE 20 MEQ TAB.ER.PRT PO SCH (08:42)
[2019-08-26] MEDS: MUPIROCIN OINT 2%, 22GM TP SCH ×3 (08:42→21:25)
[2019-08-26] MEDS: ISOSORBIDE MONONITRATE ER 30 MG TABLET PO SCH (08:57)
[2019-08-26] MEDS ORDERED: LISINOPRIL 5 MG TABLET PO SCH (09:00)
[2019-08-26] MEDS ORDERED: SPIRONOLACTONE 25 MG TABLET PO SCH (09:00)
[2019-08-26] MEDS: ASPIRIN 81 MG TABLET EC PO SCH (10:39)
[2019-08-26] MEDS ORDERED: FUROSEMIDE 20 MG/2 ML IV ONE (11:00)
[2019-08-26] MEDS: FERROUS SULFATE 325 MG TABLET PO SCH ×2 (11:58→16:36)
[2019-08-26 12:01] LABS: CLOSTRIDIUM DIFFICILE ANTIGEN NEGATIVE; CLOSTRIDIUM DIFFICILE TOXIN NEGATIVE (Negative)
[2019-08-26 12:53] VITALS: BP 94/47
[2019-08-26] MEDS: ENOXAPARIN 40 MG/0.4 ML SQ SCH (16:37)
[2019-08-26] MEDS: CHOLECALCIFEROL 400 UNITS TABLET PO SCH (16:40)
[2019-08-26 18:49] VITALS: BP 95/66
[2019-08-26] MEDS: ATORVASTATIN 20 MG TABLET PO SCH (21:24)
[2019-08-27 00:30] VITALS: BP 98/67
[2019-08-27 07:37] VITALS: BP 97/61
[2019-08-27] MEDS: MUPIROCIN OINT 2%, 22GM TP SCH ×3 (08:04→22:12)
[2019-08-27] MEDS: INSULIN LISPRO 100 UNITS/ML, PEN LOW DOSE SS SQ-INSULIN SCH ×4 (08:07→21:00)
[2019-08-27] MEDS ORDERED: FUROSEMIDE 10 MG/ML ORAL SOL PO SCH (09:00)
[2019-08-27] MEDS: POTASSIUM CHLORIDE 20 MEQ TAB.ER.PRT PO SCH (09:05)
[2019-08-27] MEDS: SENNA/DOCUSATE TABLET PO SCH (09:05)
[2019-08-27] MEDS: FERROUS SULFATE 325 MG TABLET PO SCH ×3 (09:05→16:24)
[2019-08-27] MEDS: metFORMIN 500 MG TABLET PO SCH ×2 (09:05→16:24)
[2019-08-27] MEDS: ASCORBIC ACID 500 MG TABLET PO SCH ×2 (09:06→16:24)
[2019-08-27] MEDS: ASPIRIN 81 MG TABLET EC PO SCH (09:06)
[2019-08-27] MEDS: CLOPIDOGREL 75 MG TABLET PO SCH (09:06)
[2019-08-27] MEDS: LEVOFLOXACIN 750 MG TABLET PO SCH (09:06)
[2019-08-27] MEDS: FAMOTIDINE 10 MG TAB PO SCH ×3 (10:50→22:17)
[2019-08-27 12:38] VITALS: BP 114/70
[2019-08-27] MEDS: FUROSEMIDE 20 MG/2 ML IV SCH (16:24)
[2019-08-27] MEDS: ENOXAPARIN 40 MG/0.4 ML SQ SCH (16:24)
[2019-08-27] MEDS: CHOLECALCIFEROL 400 UNITS TABLET PO SCH (16:24)
[2019-08-27 18:48] VITALS: BP 106/74
[2019-08-27] MEDS: ATORVASTATIN 20 MG TABLET PO SCH (21:01)
[2019-08-27] MEDS: MELATONIN 5 MG TABLET PO PRN (23:48)
[2019-08-28 00:21] VITALS: BP 103/64
[2019-08-28 05:36] VITALS: BP 96/49
[2019-08-28] MEDS: METOPROLOL SUCCINATE 25 MG TAB.ER.24H PO SCH (06:00)
[2019-08-28] MEDS: INSULIN LISPRO 100 UNITS/ML, PEN LOW DOSE SS SQ-INSULIN SCH ×4 (07:00→19:52)
[2019-08-28] MEDS: SENNA/DOCUSATE TABLET PO SCH (08:21)
[2019-08-28 08:24] VITALS: BP 95/40
[2019-08-28] MEDS: ISOSORBIDE MONONITRATE ER 30 MG TABLET PO SCH ×2 (09:00→20:04)
[2019-08-28] MEDS: FUROSEMIDE 20 MG/2 ML IV SCH ×2 (09:02→18:14)
[2019-08-28] MEDS: ASCORBIC ACID 500 MG TABLET PO SCH (09:03)
[2019-08-28] MEDS: metFORMIN 500 MG TABLET PO SCH ×2 (09:03→18:14)
[2019-08-28] MEDS: FAMOTIDINE 10 MG TAB PO SCH ×2 (09:03→21:17)
[2019-08-28] MEDS: ASPIRIN 81 MG TABLET EC PO SCH (09:03)
[2019-08-28] MEDS: CLOPIDOGREL 75 MG TABLET PO SCH (09:03)
[2019-08-28] MEDS: FERROUS SULFATE 325 MG TABLET PO SCH ×3 (09:04→18:14)
[2019-08-28] MEDS: MUPIROCIN OINT 2%, 22GM TP SCH ×3 (09:04→20:04)
[2019-08-28] MEDS: POTASSIUM CHLORIDE 20 MEQ TAB.ER.PRT PO SCH (09:04)
[2019-08-28 12:30] VITALS: BP 102/67
[2019-08-28] MEDS: ENOXAPARIN 40 MG/0.4 ML SQ SCH (18:15)
[2019-08-28 20:03] VITALS: BP 104/47
[2019-08-28] MEDS: ATORVASTATIN 20 MG TABLET PO SCH (20:04)
[2019-08-28] MEDS: MELATONIN 5 MG TABLET PO PRN (21:17)
[2019-08-29 01:18] VITALS: BP 91/58
[2019-08-29 05:46] VITALS: BP 95/62
[2019-08-29] MEDS: METOPROLOL SUCCINATE 25 MG TAB.ER.24H PO SCH (05:56)
[2019-08-29 07:06] VITALS: BP 86/56
[2019-08-29] MEDS: FUROSEMIDE 20 MG/2 ML IV SCH ×2 (07:30→17:38)
[2019-08-29 07:55] LABS: ALBUMIN 2.7 g/dL (3.4-5.0); ANION GAP 7 mmol/L (5-15); CALCIUM 8.8 mg/dL (8.5-10.1); CHLORIDE 106 mmol/L (98-107)
[2019-08-29 07:59] LABS: ALANINE AMINOTRANSFERASE 14 U/L (12-78); ALKALINE PHOSPHATASE 83 U/L (45-117); BILIRUBIN,TOTAL 0.8 mg/dL (0.2-1.0); CREATININE 1.22 mg/dL (0.55-1.02); TOTAL PROTEIN 5.9 g/dL (6.4-8.2)
[2019-08-29] MEDS: INSULIN LISPRO 100 UNITS/ML, PEN LOW DOSE SS SQ-INSULIN SCH ×4 (07:59→21:00)
[2019-08-29] MEDS: metFORMIN 500 MG TABLET PO SCH (08:00)
[2019-08-29 08:02] LABS: BASOPHILS % (AUTO) 0 % (0-1); EOSINOPHILS # (AUTO) 0.11 x10^3/uL (0-0.4); EOSINOPHILS % (AUTO) 2 % (1-7); LYMPHOCYTES # (AUTO) 0.82 x10^3/uL (1-3.4); LYMPHOCYTES % (AUTO) 17 % (22-44); MD MORPH REVIEW ONLY; MEAN CORPUSCULAR HEMOGLOBIN 21.3 pg (27.0-34.8); MEAN CORPUSCULAR HGB CONC 30.5 g/dL (32.4-35.8); MEAN CORPUSCULAR VOLUME 69.6 fL (80-100); MEAN PLATELET VOLUME 7.1 fL (7.4-10.4); MONOCYTES # (AUTO) 0.37 x10^3/uL (0.2-0.8); MONOCYTES % (AUTO) 8 % (2-9); NEUTROPHILS # (AUTO) 3.41 x10^3/uL (1.8-6.8); NEUTROPHILS % (AUTO) 72 % (42-75); PLATELET COUNT 262 x10^3/uL (130-400); RED BLOOD COUNT 5.72 x10^6/uL (3.82-5.3); RED CELL DISTRIBUTION WIDTH 23.1 % (9.6-15.2)
[2019-08-29 08:27] LABS: ANISOCYTOSIS 2+; HYPOCHROMIA 2+; MICROCYTOSIS 2+
[2019-08-29 08:28] LABS: OVALOCYTES 1+; POLYCHROMASIA 1+
[2019-08-29 08:29] LABS: <PLATELET ESTIMATE> ADEQUATE; <PLT MORPHOLOGY> NORMAL PLT MORPH
[2019-08-29] MEDS: MUPIROCIN OINT 2%, 22GM TP SCH ×3 (09:00→21:25)
[2019-08-29] MEDS: ISOSORBIDE MONONITRATE ER 30 MG TABLET PO SCH ×2 (09:00→21:20)
[2019-08-29] MEDS: CLOPIDOGREL 75 MG TABLET PO SCH (09:23)
[2019-08-29] MEDS: LEVOFLOXACIN 750 MG TABLET PO SCH (09:23)
[2019-08-29] MEDS: FAMOTIDINE 10 MG TAB PO SCH ×2 (09:23→21:20)
[2019-08-29] MEDS: ASPIRIN 81 MG TABLET EC PO SCH (09:23)
[2019-08-29] MEDS: FERROUS SULFATE 325 MG TABLET PO SCH ×3 (09:23→17:38)
[2019-08-29] MEDS: POTASSIUM CHLORIDE 20 MEQ TAB.ER.PRT PO SCH (09:23)
[2019-08-29] MEDS: SENNA/DOCUSATE TABLET PO SCH (09:23)
[2019-08-29] MEDS ORDERED: GLUCAGON 1 MG IM PRN (09:30)
[2019-08-29] MEDS ORDERED: DEXTROSE 50%, 50ML SYRINGE IVPush PRN (09:30)
[2019-08-29] MEDS ORDERED: DEXTROSE 4 GM TAB.CHEW PO PRN (09:30)
[2019-08-29 13:14] VITALS: BP 94/61
[2019-08-29] MEDS: ENOXAPARIN 40 MG/0.4 ML SQ SCH (17:38)
[2019-08-29 20:00] VITALS: BP 90/67
[2019-08-29] MEDS: ATORVASTATIN 20 MG TABLET PO SCH (21:20)
[2019-08-29] MEDS: SODIUM CHLORIDE FLUSH 10ML SYR IVF SCH (21:20)
[2019-08-29] MEDS: MELATONIN 5 MG TABLET PO PRN (21:25)
[2019-08-30] VITALS (7 sets, daily range): BP systolic 85–94; BP diastolic 51–67
[2019-08-30 05:09] LABS: MEAN CORPUSCULAR HEMOGLOBIN 21.3 pg (27.0-34.8); MEAN CORPUSCULAR HGB CONC 30.2 g/dL (32.4-35.8); MEAN CORPUSCULAR VOLUME 70.4 fL (80-100); MEAN PLATELET VOLUME 7.2 fL (7.4-10.4); PLATELET COUNT 305 x10^3/uL (130-400); RED BLOOD COUNT 5.59 x10^6/uL (3.82-5.3); RED CELL DISTRIBUTION WIDTH 22.8 % (9.6-15.2)
[2019-08-30 05:12] LABS: ALANINE AMINOTRANSFERASE 14 U/L (12-78); ALBUMIN 2.7 g/dL (3.4-5.0); ANION GAP 5 mmol/L (5-15); CALCIUM 8.6 mg/dL (8.5-10.1); CHLORIDE 105 mmol/L (98-107); CREATININE 1.28 mg/dL (0.55-1.02)
[2019-08-30 05:14] LABS: ALKALINE PHOSPHATASE 74 U/L (45-117); BILIRUBIN,TOTAL 0.8 mg/dL (0.2-1.0); TOTAL PROTEIN 5.9 g/dL (6.4-8.2)
[2019-08-30] MEDS: METOPROLOL SUCCINATE 25 MG TAB.ER.24H PO SCH (05:30)
[2019-08-30 05:49] LABS: BASOPHILS # (AUTO) 0.02 x10^3/uL (0-0.1); BASOPHILS % (AUTO) 0 % (0-1); EOSINOPHILS % (AUTO) 2 % (1-7); LYMPHOCYTES # (AUTO) 0.91 x10^3/uL (1-3.4); LYMPHOCYTES % (AUTO) 21 % (22-44); MD MORPH REVIEW ONLY; MONOCYTES # (AUTO) 0.46 x10^3/uL (0.2-0.8); MONOCYTES % (AUTO) 11 % (2-9); NEUTROPHILS # (AUTO) 2.91 x10^3/uL (1.8-6.8); NEUTROPHILS % (AUTO) 66 % (42-75)
[2019-08-30 05:51] LABS: ANISOCYTOSIS 2+; MICROCYTOSIS 2+
[2019-08-30 05:52] LABS: <PLATELET ESTIMATE> ADEQUATE; <PLT MORPHOLOGY> NORMAL PLT MORPH; HYPOCHROMIA 2+; OVALOCYTES 1+; POLYCHROMASIA 1+
[2019-08-30] MEDS: INSULIN LISPRO 100 UNITS/ML, PEN LOW DOSE SS SQ-INSULIN SCH ×4 (07:00→21:00)
[2019-08-30] MEDS: SODIUM CHLORIDE FLUSH 10ML SYR IVF SCH ×2 (09:00→21:11)
[2019-08-30] MEDS: MUPIROCIN OINT 2%, 22GM TP SCH ×3 (09:00→21:12)
[2019-08-30] MEDS: FERROUS SULFATE 325 MG TABLET PO SCH ×3 (09:01→18:02)
[2019-08-30] MEDS: ASPIRIN 81 MG TABLET EC PO SCH (09:01)
[2019-08-30] MEDS: CLOPIDOGREL 75 MG TABLET PO SCH (09:02)
[2019-08-30] MEDS: FAMOTIDINE 10 MG TAB PO SCH ×2 (09:02→21:11)
[2019-08-30] MEDS: POTASSIUM CHLORIDE 20 MEQ TAB.ER.PRT PO SCH (13:24)
[2019-08-30] MEDS: SENNA/DOCUSATE TABLET PO SCH (13:25)
[2019-08-30] MEDS: ISOSORBIDE MONONITRATE ER 30 MG TABLET PO SCH (13:30)
[2019-08-30] MEDS ORDERED: FUROSEMIDE 20 MG TABLET PO SCH (17:00)
[2019-08-30] MEDS: FUROSEMIDE 20 MG/2 ML IV SCH (18:02)
[2019-08-30] MEDS: ENOXAPARIN 40 MG/0.4 ML SQ SCH (18:03)
[2019-08-30] MEDS: ATORVASTATIN 20 MG TABLET PO SCH (21:11)
[2019-08-30] MEDS: MELATONIN 5 MG TABLET PO PRN (21:23)
[2019-08-31 04:10] VITALS: BP 93/61
[2019-08-31] MEDS: METOPROLOL SUCCINATE 25 MG TAB.ER.24H PO SCH (05:42)
[2019-08-31 06:33] VITALS: BP 90/57
[2019-08-31 06:48] LABS: ALBUMIN 2.9 g/dL (3.4-5.0); ANION GAP 7 mmol/L (5-15); CHLORIDE 103 mmol/L (98-107)
[2019-08-31 06:52] LABS: % IRON SATURATION 26 % (20-55); ALANINE AMINOTRANSFERASE 15 U/L (12-78); ALKALINE PHOSPHATASE 80 U/L (45-117); BILIRUBIN,TOTAL 0.8 mg/dL (0.2-1.0); CREATININE 1.23 mg/dL (0.55-1.02); IRON LEVEL 91 mcg/dL (50-170); TOTAL IRON BINDING CAPACITY 353 mcg/dL (250-450); TOTAL PROTEIN 6.3 g/dL (6.4-8.2)
[2019-08-31] MEDS: INSULIN LISPRO 100 UNITS/ML, PEN LOW DOSE SS SQ-INSULIN SCH ×4 (07:00→20:56)
[2019-08-31 07:29] LABS: MD YES; MEAN CORPUSCULAR HEMOGLOBIN 21.5 pg (27.0-34.8); MEAN CORPUSCULAR HGB CONC 30.5 g/dL (32.4-35.8); MEAN CORPUSCULAR VOLUME 70.4 fL (80-100); MEAN PLATELET VOLUME 7.4 fL (7.4-10.4); PLATELET COUNT 285 x10^3/uL (130-400); RED BLOOD COUNT 6.04 x10^6/uL (3.82-5.3)
[2019-08-31 07:31] LABS: <PLATELET ESTIMATE> ADEQUATE; <PLT MORPHOLOGY> NORMAL PLT MORPH; ANISOCYTOSIS 2+; EOS#(MANUAL) 0.09 x10^3/uL (0.0-0.4); EOS% (MANUAL) 2 % (1-7); LYMPH#(MANUAL) 1.13 x10^3/uL (1-3.4); LYMPHS% (MANUAL) 24 % (22-44); MICROCYTOSIS 2+; MONOS#(MANUAL) 0.33 x10^3/uL (0.3-2.7); MONOS% (MANUAL) 7 % (2-9); OVALOCYTES 1+; POLYCHROMASIA 1+; SEG#(MANUAL) 3.15 x10^3/uL (1.8-6.8); SEGS% (MANUAL) 67 % (42-75)
[2019-08-31 07:32] LABS: HYPOCHROMIA 1+
[2019-08-31] MEDS: ASPIRIN 81 MG TABLET EC PO SCH (08:29)
[2019-08-31] MEDS: FUROSEMIDE 20 MG/2 ML IV SCH ×2 (08:29→16:27)
[2019-08-31] MEDS: SENNA/DOCUSATE TABLET PO SCH (08:29)
[2019-08-31] MEDS: FAMOTIDINE 10 MG TAB PO SCH ×2 (08:29→20:55)
[2019-08-31] MEDS: GABAPENTIN 300 MG CAPSULE PO PRN ×2 (08:30→20:55)
[2019-08-31] MEDS: CLOPIDOGREL 75 MG TABLET PO SCH (08:30)
[2019-08-31] MEDS: LEVOFLOXACIN 750 MG TABLET PO SCH (08:30)
[2019-08-31] MEDS: ISOSORBIDE MONONITRATE ER 30 MG TABLET PO SCH (08:30)
[2019-08-31] MEDS: POTASSIUM CHLORIDE 20 MEQ TAB.ER.PRT PO SCH (08:30)
[2019-08-31] MEDS: SODIUM CHLORIDE FLUSH 10ML SYR IVF SCH ×2 (08:30→20:55)
[2019-08-31] MEDS: FERROUS SULFATE 325 MG TABLET PO SCH ×3 (08:30→16:28)
[2019-08-31] MEDS: MUPIROCIN OINT 2%, 22GM TP SCH ×3 (08:31→20:57)
[2019-08-31] MEDS ORDERED: LIDOCAINE 1%, 10ML ONE (09:16)
[2019-08-31] MEDS: ACETAMINOPHEN 325 MG TABLET PO PRN (10:44)
[2019-08-31] MEDS: BACLOFEN 10 MG TABLET PO PRN (12:46)
[2019-08-31 13:20] VITALS: BP 85/54
[2019-08-31] MEDS: ENOXAPARIN 40 MG/0.4 ML SQ SCH (16:27)
[2019-08-31 19:00] VITALS: BP 92/54
[2019-08-31] MEDS: ATORVASTATIN 20 MG TABLET PO SCH (20:55)
[2019-09-01 01:26] VITALS: BP 96/58
[2019-09-01] MEDS: METOPROLOL SUCCINATE 25 MG TAB.ER.24H PO SCH (05:54)
[2019-09-01 06:51] VITALS: BP 93/60
[2019-09-01] MEDS: INSULIN LISPRO 100 UNITS/ML, PEN LOW DOSE SS SQ-INSULIN SCH ×5 (07:00→20:08)
[2019-09-01] MEDS: ASPIRIN 81 MG TABLET EC PO SCH (08:50)
[2019-09-01] MEDS: CLOPIDOGREL 75 MG TABLET PO SCH (08:50)
[2019-09-01] MEDS: FAMOTIDINE 10 MG TAB PO SCH ×2 (08:50→20:08)
[2019-09-01] MEDS: FERROUS SULFATE 325 MG TABLET PO SCH ×3 (08:50→16:34)
[2019-09-01] MEDS: SENNA/DOCUSATE TABLET PO SCH (08:50)
[2019-09-01] MEDS: POTASSIUM CHLORIDE 20 MEQ TAB.ER.PRT PO SCH (08:50)
[2019-09-01] MEDS: SODIUM CHLORIDE FLUSH 10ML SYR IVF SCH ×2 (08:51→20:08)
[2019-09-01] MEDS: MUPIROCIN OINT 2%, 22GM TP SCH ×3 (08:51→20:14)
[2019-09-01] MEDS ORDERED: POLYETHYLENE GLYCOL 17 GM PACKET PO SCH (09:00)
[2019-09-01] MEDS ORDERED: POLYETHYLENE GLYCOL 17 GM PACKET PO PRN (09:00)
[2019-09-01 10:34] LABS: TROPONIN I < 0.015 ng/mL (0.000-0.045)
[2019-09-01] MEDS: BACLOFEN 10 MG TABLET PO PRN (11:52)
[2019-09-01 15:42] LABS: TROPONIN I < 0.015 ng/mL (0.000-0.045)
[2019-09-01 15:54] VITALS: BP 87/60
[2019-09-01] MEDS: ENOXAPARIN 40 MG/0.4 ML SQ SCH (16:33)
[2019-09-01] MEDS: FUROSEMIDE 20 MG TABLET PO SCH (16:34)
[2019-09-01 18:35] VITALS: BP 93/64
[2019-09-01] MEDS: ATORVASTATIN 20 MG TABLET PO SCH (20:08)
[2019-09-01 20:20] VITALS: BP 77/47
[2019-09-01 20:55] VITALS: BP 99/67
[2019-09-01] MEDS ORDERED: SODIUM CHLORIDE 0.9%, 500ML IVBOLUS ONE (21:00)
[2019-09-02 01:50] VITALS: BP 93/58
[2019-09-02 05:08] LABS: ALBUMIN 2.6 g/dL (3.4-5.0); ANION GAP 7 mmol/L (5-15); CALCIUM 8.3 mg/dL (8.5-10.1); CHLORIDE 106 mmol/L (98-107)
[2019-09-02] MEDS: METOPROLOL SUCCINATE 25 MG TAB.ER.24H PO SCH (05:11)
[2019-09-02 05:13] LABS: ALANINE AMINOTRANSFERASE 13 U/L (12-78); ALKALINE PHOSPHATASE 71 U/L (45-117); BILIRUBIN,TOTAL 0.9 mg/dL (0.2-1.0); CREATININE 1.19 mg/dL (0.55-1.02); TOTAL PROTEIN 6.2 g/dL (6.4-8.2)
[2019-09-02 06:59] VITALS: BP 88/56
[2019-09-02] MEDS: INSULIN LISPRO 100 UNITS/ML, PEN LOW DOSE SS SQ-INSULIN SCH ×4 (08:29→20:23)
[2019-09-02] MEDS: FUROSEMIDE 20 MG TABLET PO SCH ×2 (08:30→17:10)
[2019-09-02] MEDS: SENNA/DOCUSATE TABLET PO SCH (08:38)
[2019-09-02] MEDS: SODIUM CHLORIDE FLUSH 10ML SYR IVF SCH ×2 (08:38→20:22)
[2019-09-02] MEDS: FAMOTIDINE 10 MG TAB PO SCH ×2 (08:38→20:23)
[2019-09-02] MEDS: ASPIRIN 81 MG TABLET EC PO SCH (08:39)
[2019-09-02] MEDS: MUPIROCIN OINT 2%, 22GM TP SCH ×3 (08:39→20:22)
[2019-09-02] MEDS: FERROUS SULFATE 325 MG TABLET PO SCH ×3 (08:39→17:13)
[2019-09-02] MEDS: POTASSIUM CHLORIDE 20 MEQ TAB.ER.PRT PO SCH (08:39)
[2019-09-02] MEDS: CLOPIDOGREL 75 MG TABLET PO SCH (08:39)
[2019-09-02] MEDS: LEVOFLOXACIN 750 MG TABLET PO SCH (10:12)
[2019-09-02 12:35] VITALS: BP 85/54
[2019-09-02] MEDS: ENOXAPARIN 40 MG/0.4 ML SQ SCH (16:58)
[2019-09-02 19:57] VITALS: BP 90/58
[2019-09-02] MEDS: MELATONIN 5 MG TABLET PO PRN (20:23)
[2019-09-02] MEDS: BACLOFEN 10 MG TABLET PO PRN (20:24)
[2019-09-02] MEDS ORDERED: ATORVASTATIN 40 MG TABLET PO SCH (21:00)
[2019-09-03 00:22] VITALS: BP 92/59
[2019-09-03] MEDS: METOPROLOL SUCCINATE 25 MG TAB.ER.24H PO SCH (05:45)
[2019-09-03 07:40] VITALS: BP 93/52
[2019-09-03] MEDS: INSULIN LISPRO 100 UNITS/ML, PEN LOW DOSE SS SQ-INSULIN SCH ×2 (07:44→13:03)
[2019-09-03] MEDS: FUROSEMIDE 20 MG TABLET PO SCH (07:46)
[2019-09-03] MEDS: SENNA/DOCUSATE TABLET PO SCH (09:13)
[2019-09-03] MEDS: FERROUS SULFATE 325 MG TABLET PO SCH ×2 (09:13→12:40)
[2019-09-03] MEDS: ASPIRIN 81 MG TABLET EC PO SCH (09:13)
[2019-09-03] MEDS: CLOPIDOGREL 75 MG TABLET PO SCH (09:13)
[2019-09-03] MEDS: FAMOTIDINE 10 MG TAB PO SCH (09:13)
[2019-09-03] MEDS: MUPIROCIN OINT 2%, 22GM TP SCH (09:13)
[2019-09-03] MEDS: POTASSIUM CHLORIDE 20 MEQ TAB.ER.PRT PO SCH (09:13)
[2019-09-03] MEDS: SODIUM CHLORIDE FLUSH 10ML SYR IVF SCH (09:13)
[2019-09-03] MEDS: ACETAMINOPHEN 325 MG TABLET PO PRN (09:30)
[2019-09-03] MEDS ORDERED: FERR-51 PO (11:29)
[2019-09-03] MEDS ORDERED: FURO20TA3 PO (11:29)
[2019-09-03] MEDS ORDERED: ATOR40TA78 PO (11:29)
[2019-09-03 12:54] VITALS: BP 88/56
== END 2019-09-03 15:30 | DRG 871 ==
LOC: ED 10:11 → EDIP 10:50 → 4NW 14:53 → 4EST 08-28 21:09
PROVIDERS: ADMIT Family Medicine; ATTEND Internal Medicine
PROC: 0W993ZZ Drainage of Right Pleural Cavity, Percutaneous Approach (ICD-10-PCS; principal; 2019-08-31)
DX: A41.9 Sepsis, unspecified organism (principal); J18.9 Pneumonia, unspecified organism; R53.2 Functional quadriplegia; I50.23 Acute on chronic systolic (congestive) heart failure; I13.0 Hypertensive heart and chronic kidney disease with heart failure and stage 1 through stage 4 chronic kidney disease, or unspecified chronic kidney disease; N39.0 Urinary tract infection, site not specified; E87.2 Acidosis; E44.0 Moderate protein-calorie malnutrition; J90 Pleural effusion, not elsewhere classified; J98.11 Atelectasis; I48.91 Unspecified atrial fibrillation; K52.9 Noninfective gastroenteritis and colitis, unspecified; D64.9 Anemia, unspecified; I25.10 Atherosclerotic heart disease of native coronary artery without angina pectoris; I27.20 Pulmonary hypertension, unspecified; D50.9 Iron deficiency anemia, unspecified; I37.1 Nonrheumatic pulmonary valve insufficiency; I50.9 Heart failure, unspecified; E78.5 Hyperlipidemia, unspecified; E11.649 Type 2 diabetes mellitus with hypoglycemia without coma; E11.51 Type 2 diabetes mellitus with diabetic peripheral angiopathy without gangrene; B96.20 Unspecified Escherichia coli [E. coli] as the cause of diseases classified elsewhere; Z20.828 Contact with and (suspected) exposure to other viral communicable diseases; N18.3 Chronic kidney disease, stage 3 (moderate); E11.22 Type 2 diabetes mellitus with diabetic chronic kidney disease; I25.2 Old myocardial infarction; Z85.42 Personal history of malignant neoplasm of other parts of uterus; Z90.710 Acquired absence of both cervix and uterus; Z90.49 Acquired absence of other specified parts of digestive tract; Z88.8 Allergy status to other drugs, medicaments and biological substances; Z79.4 Long term (current) use of insulin; Z87.891 Personal history of nicotine dependence; Z95.0 Presence of cardiac pacemaker; N18.9 Chronic kidney disease, unspecified
CPT/HCPCS: 32555; 36415; 71045; 71250; 80048; 80053; 81001; 82040; 82042; 82728; 82945; 82962; 83036; 83540; 83550; 83605; 83615; 83735; 83986; 84145; 84157; 84484; 85025; 85379; 87040; 87070; 87077; 87086; 87186; 87205; 87324; 87635; 89055; 93005; 93306; 93922; 93925; 96365; 96366; 99285; G0378; J1650; J1956; J2405; J1815; J1940; J7030; J7040; J7120